=== PATIENT | female | born 1960 | race Caucasian/White ===

== ENCOUNTER 2018-02-28 08:41 | Inpatient (IN) | payer MEDICAID ==
[~2018-02-28 08:41] MED LIST: Acetaminophen 325 MG Tab PO SCH; Lidocaine 1%/Sod Bicarbonate in NS 8.4% 1 ML Syringe IDERM PRN; Pregabalin 25 MG Cap PO SCH; Sodium Chloride 0.9% 10 ML Syringe FLUSH PRN; oxyCODONE ER 10 MG TAB.ER PO SCH
[2018-02-28] MEDS ORDERED: Lidocaine 1% 0 ML ONE (08:58)
[2018-02-28] MEDS ORDERED: Propofol 200 MG/20 ML SDV ONE (08:58)
[2018-02-28] MEDS ORDERED: Midazolam 1 MG/ML 2 ML SDV ONE ×2 (08:59→11:22)
[2018-02-28] MEDS ORDERED: fentaNYL 100 MCG/2 ML SDV ONE (08:59)
[2018-02-28] MEDS ORDERED: ceFAZolin 1 GM Vial ONE ×2 (09:00→09:05)
[2018-02-28] MEDS ORDERED: Vancomycin 1 GM SDV ONE (09:05)
[2018-02-28] MEDS ORDERED: Morphine PF 10 MG/10 ML SDV ONE (09:05)
[2018-02-28] MEDS ORDERED: Iodine/Sodium Iodide 2% Tincture 30 ML Bottle ONE (09:05)
[2018-02-28] MEDS ORDERED: Lactated Ringers 1,000 ML ONE ×2 (09:06→11:30)
[2018-02-28] MEDS ORDERED: Bupivacaine 0.25% 30 ML SDV ONE (09:06)
[2018-02-28] MEDS: Lactated Ringers 1,000 ML IV SCH ×2 (09:10→13:35)
--- NOTE | 2018-02-28 09:16 | PCM.PREANE ---
Preanesthetic Assessment - Procedure Proposed Procedure: left total hip arthroplasty - Anesthesia/Transfusion/Family Hx Anesthesia History: Prior Anesthesia Without Reaction Family History of Anesthesia Reaction: No Transfusion History: No Prior Transfusion(s) - Review of Systems General: No Symptoms Pulmonary: No Symptoms Cardiovascular: No Symptoms Gastrointestinal: No Symptoms Neurological: No Symptoms Other: Reports: Thyroid Problems, Sinus Problem (nose broken a few times- one side seems more blocked) - Physical Assessment NPO Status Date: 02/27/18 NPO Status Time: 23:45 Pulse: 86 O2 Sat by Pulse Oximetry: 96 Respiratory Rate: 16 Blood Pressure: 136/95 Temperature: 99.2 F Height: 5 ft 3 in Weight: 68.855 kg ASA Class: 2 Mental Status: Alert & Oriented x3 Airway Class: Mallampati = 1 Dentition: Reports: Normal Dentition Thyro-Mental Finger Breadths: 3 Mouth Opening Finger Breadths: 3 ROM/Head Extension: Full Lungs: Clear to Auscultation, Normal Respiratory Effort Cardiovascular: Regular Rate, Regular Rhythm - Lab Values: Laboratory Last Values MRSA (PCR) Negative 02/11/18 14:26 - Imaging/EKG Impressions: EKG NSR at 64 - Allergies Allergies/Adverse Reactions: Allergies Allergy/AdvReac Type Severity Reaction Status Date / Time No Known Allergies Allergy Verified 02/25/18 16:48 - Blood Blood Available: No - Acknowledgements Anesthesia Type Planned: Spinal Pt an Appropriate Candidate for the Planned Anesthesia: Yes Alternatives and Risks of Anesthesia Discussed w Pt/Guardian: Yes Pt/Guardian Understands and Agrees with Anesthesia Plan: Yes PreAnesthesia Questionnaire HEENT History: Reports: None Cardiovascular History: Reports: None Respiratory History: Reports: None Gastrointestinal History: Reports: None Genitourinary History: Reports: None SAW FILER History: Reports: None Musculoskeletal History: Reports: Osteoarthritis Neurological History: Reports: None Psychiatric History: Reports: None Endocrine/Metabolic History: Reports: Hypothyroidism Hematologic History: Reports: None Immunologic History: Reports: None Oncologic (Cancer) History: Reports: None Dermatologic History: Reports: None - Past Surgical History Head Surgeries/Procedures: Reports: None HEENT Surgical History: Reports: None Cardiovascular Surgical History: Reports: None Respiratory Surgical History: Reports: Other (See Below) Other Respiratory Surgeries/Procedures: right lung surgery- had pneumonia- took scar tissue out GI Surgical History: Reports: Cholecystectomy Female Surgical History: Reports: Hysterectomy Male Surgical History: Reports: None Endocrine Surgical History: Reports: None Neurological Surgical History: Reports: None Musculoskeletal Surgical History: Reports: Hip Replacement, Other (See Below) ( left ankle) Oncologic Surgical History: Reports: None Dermatological Surgical History: Reports: None - SUBSTANCE USE Smoking Status *Q: Former Smoker (quit 6 weeks ago) Tobacco Use Within Last Twelve Months: Cigarettes Second Hand Smoke Exposure: Yes Days Per Week of Alcohol Use: 4 Number of Drinks Per Day: 2 (wine or beer) Total Drinks Per Week: 8 Recreational Drug Use History: No - HOME MEDS Home Medications: Home Meds Acetaminophen/HYDROcodone [[place] 325-5 MG] 1 tab PO Q6H PRN 02/25/18 [History] Estradiol 0.5 mg PO DAILY 02/25/18 [History] Levothyroxine [Synthroid] 100 mcg PO DAILY 02/25/18 [History] buPROPion [Wellbutrin SR] 150 mg PO BID 02/25/18 [History] - CURRENT (IN HOUSE) MEDS Current Meds: Current Medications Acetaminophen (Tylenol) 975 mg PO ONETIME [facility] Stop: 02/28/18 13:00 Bisacodyl (Dulcolax) 5 mg PO DAILY PRN PRN Reason: Constipation Morphine Sulfate 8 mg/Epinephrine HCl 0.3 mg/Cefuroxime Sodium 750 mg/Ketorolac Tromethamine 30 mg/Sodium Chloride 27.9 ml 0 mg .XX ONETIME ONE Stop: 02/28/18 11:06 Cyclobenzaprine HCl (Flexeril) 10 mg PO TID PRN PRN Reason: Spasms Docusate Sodium (Colace) 100 mg PO BID [facility] Famotidine (Pepcid) 20 mg PO Q12H [facility] Lactated Ringer's (Ringers, Lactated) 1,000 mls @ 125 mls/hr IV ASDIRECTED [facility] Stop: 02/28/18 23:00 Cefazolin Sodium/Dextrose 2 gm (/ Premix) 50 mls @ 100 mls/hr IV Q8H [facility] Stop: 02/28/18 23:29 Ketorolac Tromethamine (Toradol) 15 mg IVPUSH Q6H PRN PRN Reason: Pain Lidocaine/Sodium Bicarbonate (Buffered Lidocaine 1% In Ns 8.4%) 0.25 ml IDERM ONETIME PRN PRN Reason: Prior to IV Start Stop: 02/28/18 18:00 Magnesium Hydroxide (Milk Of Magnesia) 30 ml PO BID PRN PRN Reason: Constipation Morphine Sulfate (Morphine) 2 mg IVPUSH Q2H PRN PRN Reason: Breakthrough Pain Naloxone HCl (Narcan) 0.1 mg IVPUSH Q5M PRN PRN Reason: Oversedation Ondansetron HCl (Zofran) 4 mg IVPUSH Q6H PRN PRN Reason: Nausea/Vomiting Oxycodone HCl (Oxycontin) 10 mg PO ONETIME [facility] Stop: 02/28/18 13:00 Oxycodone/Acetaminophen (Percocet 325-5 Mg) 1 - 2 tab PO Q4H PRN PRN Reason: Pain Pregabalin (Lyrica) 50 mg PO ONETIME [facility] Stop: 02/28/18 13:00 Rivaroxaban (Xarelto) 10 mg PO DAILY [facility] Senna (Senna) 8.6 mg PO BID PRN PRN Reason: Constipation Sodium Chloride (Saline Flush) 10 ml FLUSH ASDIRECTED PRN PRN Reason: Keep Vein Open Stop: 02/28/18 18:00 Discontinued Medications Bupivacaine HCl (Marcaine 0.25%) Confirm Administered Dose 30 ml .ROUTE .STK- MED ONE Stop: 02/28/18 09:07 Cefazolin Sodium (Ancef) Confirm Administered Dose 2 gm .ROUTE .STK-MED ONE Stop: 02/28/18 09:01 Cefazolin Sodium (Ancef) Confirm Administered Dose 2 gm .ROUTE .STK-MED ONE Stop: 02/28/18 09:06 Fentanyl (Sublimaze) Confirm Administered Dose 100 mcg .ROUTE .STK-MED ONE Stop: 02/28/18 09:00 Lidocaine HCl (Xylocaine-Mpf 1%) Confirm Administered Dose 4 mls @ as directed .ROUTE .STK-MED ONE Stop: 02/28/18 08:59 Lactated Ringer's (Ringers, Lactated) Confirm Administered Dose 1,000 mls @ as directed .ROUTE .STK-MED ONE Stop: 02/28/18 09:07 Iodine (Iodine 2% Mild Tincture) Confirm Administered Dose 30 ml .ROUTE .STK- MED ONE Stop: 02/28/18 09:06 Midazolam HCl (Versed 1 Mg/Ml) Confirm Administered Dose 2 mg .ROUTE .STK-MED ONE Stop: 02/28/18 09:00 Morphine Sulfate (Duramorph Pf) Confirm Administered Dose 10 mg .ROUTE .STK-MED ONE Stop: 02/28/18 09:06 Propofol (Diprivan 20 Ml) Confirm Administered Dose 600 mg .ROUTE .STK-MED ONE Stop: 02/28/18 08:59 Tranexamic Acid (Cyklokapron) Confirm Administered Dose 1,000 mg .ROUTE .STK- MED ONE Stop: 02/28/18 09:06 Vancomycin HCl (Vancomycin) Confirm Administered Dose 1 gm .ROUTE .STK-MED ONE Stop: 02/28/18 09:06
[2018-02-28] MEDS ORDERED: Morphine 8 MG, EPINEPHrine 0.3 MG, Cefuroxime 750 MG, Ketorolac 30 MG, Sodium Chloride ... ONE ×5 (11:05)
[2018-02-28] MEDS ORDERED: Phenylephrine/Normal Saline 100 MCG/ML 10 ML Syringe ONE (11:16)
[2018-02-28] MEDS ORDERED: ePHEDrine/Normal Saline 25 MG/5 ML Syringe ONE (11:16)
[2018-02-28] MEDS ORDERED: Ketamine 500 mg/10 ML MDV ONE (11:22)
[2018-02-28] MEDS ORDERED: fentaNYL 100 MCG/2 ML SDV IVPUSH PRN (11:28)
[2018-02-28] MEDS ORDERED: Ondansetron 4 MG/2 ML SDV IVPUSH PRN ×2 (11:28→13:00)
[2018-02-28] MEDS ORDERED: diphenhydrAMINE 50 MG/ML SDV IVPUSH PRN (11:28)
[2018-02-28] MEDS ORDERED: Ondansetron 4 MG/2 ML SDV ONE (12:41)
--- NOTE | 2018-02-28 12:52 | PCM.POSTAN ---
POST ANESTHESIA ASSESSMENT - MENTAL STATUS Mental Status: Alert, Oriented - VITAL SIGNS Pulse Rate: 77 SaO2: 98 Resp Rate: 12 Blood Pressure: 106/75 Temperature: 98.1 F - RESPIRATORY Respiratory Status: Respiratory Rate WNL, Airway Patent, O2 Saturation Stable, Supplemental Oxygen - CARDIOVASCULAR CV Status: Pulse Rate WNL, Blood Pressure Stable - GASTROINTESTINAL GI Status: No Symptoms - PAIN Pain Score: 0 - POST OP HYDRATION Hydration Status: Adequate & Stable
[2018-02-28] MEDS ORDERED: Sennosides 8.6 MG Tab PO PRN (13:00)
[2018-02-28] MEDS ORDERED: Magnesium Hydroxide 400 MG/5 ML Susp 30 ML Cup PO PRN (13:00)
[2018-02-28] MEDS ORDERED: Ketorolac 15 MG/ML SDV IVPUSH PRN (13:00)
[2018-02-28] MEDS ORDERED: Naloxone 0.4 MG/ML SDV IVPUSH PRN (13:00)
[2018-02-28] MEDS ORDERED: Cyclobenzaprine 10 MG Tab PO PRN (13:00)
[2018-02-28] MEDS ORDERED: Morphine 2 MG/ML Syringe IVPUSH PRN (13:00)
[2018-02-28] MEDS ORDERED: Bisacodyl 5 MG Tab PO PRN (13:00)
--- NOTE | 2018-02-28 14:34 | CR ---
Pelvis and left hip: AP view of the pelvis is obtained as well as frog leg lateral view of the left hip. Comparison: No previous pelvis or hip exam. Bilateral hip prosthesis are noted. Left hip prosthesis has been recently placed. Components are aligned. Underlying bony structures are intact. Mild amount of soft tissue air is noted around the left hip. No fracture or other abnormality is seen. Impression: 1. Satisfactory postoperative radiographic appearance recently placed left hip prosthesis. Diagnostic code #2
--- NOTE | 2018-02-28 15:23 | PCM.CONS ---
H&P History of Present Illness - General Date of Service: 02/28/18 Admit Problem/Dx: Admission Diagnosis/Problem Admission Diagnosis/Problem Osteoarthritis of hip Source of Information: Patient, Provider History Limitations: Reports: No Limitations - History of Present Illness Initial Comments - Free Text/Narative: Asmita is a 57 yo female patient of Dr. Funk who is post-operative day 0 of left MONA. Hospital medicine was consulted for post-operative medical care. At this time she is resting comfortably in bed. She reports pain is currently controlled, will give pain medication PRN. She denies any chest pain, shortness of breath, palpitations, nausea, or vomiting. She carries a history of: OA, postmenopausal, hypothyroid. She is a former 1/2 ppd smoker, states she quit 6 weeks ago. She is a full code. Her primary care provider is Dr. Cuenca in [place]. - Related Data Allergies/Adverse Reactions: Allergies Allergy/AdvReac Type Severity Reaction Status Date / Time No Known Allergies Allergy Verified 02/25/18 16:48 Home Medications: Home Meds Levothyroxine [Synthroid] 100 mcg PO DAILY 02/25/18 [History] buPROPion [Wellbutrin SR] 150 mg PO BID 02/25/18 [History] Acetaminophen/oxyCODONE [Percocet 325-5 MG] 1 - 2 tab PO Q6H PRN #60 tablet 06/17 [Rx] Bisacodyl [Dulcolax] 5 mg PO DAILY PRN tablet 02/28/18 [Rx] Docusate Sodium [Colace] 100 mg PO BID cap 02/28/18 [Rx] Famotidine [Pepcid] 20 mg PO Q12H tablet 02/28/18 [Rx] Magnesium Hydroxide [Milk of Magnesia] 30 ml PO BID PRN cup 02/28/18 [Rx] Nicotine [Habitrol] 14 mg TRDERM DAILY patch 02/28/18 [Rx] Remove Patch 1 ea TRDERM Q24H each 02/28/18 [Rx] Rivaroxaban [Xarelto] 10 mg PO DAILY #40 tablet 02/28/18 [Rx] Sennosides [Senna] 8.6 mg PO BID PRN tablet 02/28/18 [Rx] Past Medical History HEENT History: Reports: None Cardiovascular History: Reports: None Respiratory History: Reports: None Gastrointestinal History: Reports: None Genitourinary History: Reports: None CORPORATE RELATIONS DIRECTOR History: Reports: None Musculoskeletal History: Reports: Osteoarthritis Neurological History: Reports: None Psychiatric History: Reports: None Endocrine/Metabolic History: Reports: Hypothyroidism Hematologic History: Reports: None Immunologic History: Reports: None Oncologic (Cancer) History: Reports: None Dermatologic History: Reports: None - Infectious Disease History Infectious Disease History: Reports: None - Past Surgical History Head Surgeries/Procedures: Reports: None HEENT Surgical History: Reports: None Cardiovascular Surgical History: Reports: None Respiratory Surgical History: Reports: Other (See Below) Other Respiratory Surgeries/Procedures: right lung surgery- had pneumonia- took scar tissue out GI Surgical History: Reports: Cholecystectomy Female Surgical History: Reports: Hysterectomy Endocrine Surgical History: Reports: None Neurological Surgical History: Reports: None Musculoskeletal Surgical History: Reports: Hip Replacement Oncologic Surgical History: Reports: None Dermatological Surgical History: Reports: None Social & Family History - Family History Family Medical History: Noncontributory - Tobacco Use Smoking Status *Q: Former Smoker Years of Tobacco use: 4 Packs/Tins Daily: 0.5 Used Tobacco, but Quit: Yes Month/Year Tobacco Last Used: December 2017 Second Hand Smoke Exposure: No - Caffeine Use Caffeine Use: Reports: Coffee, Tea - Alcohol Use Days Per Week of Alcohol Use: 5 Number of Drinks Per Day: 2 Total Drinks Per Week: 10 - Recreational Drug Use Recreational Drug Use: No H&P Review of Systems - Review of Systems: Review Of Systems: See Below General: Reports: No Symptoms. Denies: Fever, Chills HEENT: Reports: No Symptoms Pulmonary: Reports: No Symptoms. Denies: Shortness of Breath, Pleuritic Chest Pain, Cough Cardiovascular: Reports: No Symptoms. Denies: Chest Pain Gastrointestinal: Reports: No Symptoms. Denies: Diarrhea, Nausea, Vomiting Genitourinary: Reports: No Symptoms. Denies: Dysuria, Frequency, Burning, Pain , Urgency Musculoskeletal: Reports: No Symptoms Skin: Reports: No Symptoms Psychiatric: Reports: No Symptoms Neurological: Reports: Numbness (lower extremities s/p L MONA), Tingling (lower extremities s/p L MONA) Hematologic/Lymphatic: Reports: No Symptoms Immunologic: Reports: No Symptoms Exam - Exam Exam: See Below - Vital Signs Vital Signs: Last Vital Signs Temp 98.2 F 02/28/18 13:45 Pulse 72 02/28/18 14:31 Resp 16 02/28/18 15:00 BP 122/86 02/28/18 14:31 Pulse Ox 98 02/28/18 15:00 Weight: 151 lb - Exam Quality Assessment: Urinary Catheter, DVT Prophylaxis. No: Supplemental Oxygen General: Alert, Oriented, Cooperative, Mild Distress HEENT: PERRLA, Hearing Intact, Mucosa Moist & [place], Nares Patent, Normal Nasal Septum, Posterior Pharynx Clear, Conjunctiva Clear, EOMI, EACs Clear, TMs Clear Neck: Supple, Trachea Midline, 2 Lungs: Clear to Auscultation, Normal Respiratory Effort Cardiovascular: Regular Rate, Regular Rhythm GI/Abdominal Exam: Normal Bowel Sounds, Soft, Non-Tender, No Organomegaly, No Distention, No Abnormal Bruit, No Mass, Pelvis Stable (Female) Exam: Deferred Rectal (Female) Exam: Deferred Back Exam: Normal Inspection, Full Range of Motion, NT Extremities: Normal Inspection, Non-Tender, No Pedal Edema, Normal Capillary Refill, Limited Range of Motion (s/p L MONA) Peripheral Pulses: 2+: Posterior Tibial (L), Posterior Tibial (R), Dorsalis Pedis (L), Dorsalis Pedis (R) Skin: Warm, Dry, Intact, Other (dressing dry and intact) Neurological: Cranial Nerves Intact (grossly), Abnormal Gait (s/p L MONA) Neuro Extensive - Mental Status: Alert, Oriented x3, Normal Mood/Affect, Normal Cognition Psychiatric: Alert, Normal Affect, Normal Mood - Patient Data Lab Results Last 24 hrs: Laboratory Results - last 24 hr 02/28/18 Range/Units 09:05 Blood Type O POSITIVE Gel Antibody Screen Negative Consult PN Assessment/Plan POD#: 0 Procedures: Procedures DXA BONE DENSITY AXIAL (12/31/17) (1) S/P total hip arthroplasty SNOMED Code(s): 574492285535, 786874394445 Code(s): Z96.649 - PRESENCE OF UNSPECIFIED ARTIFICIAL HIP JOINT Priority: High Current Visit: Yes Qualifiers: Laterality: left Qualified Code(s): Z96.642 - Presence of left artificial hip joint (2) Osteoarthritis SNOMED Code(s): 020488427 Code(s): M19.90 - UNSPECIFIED OSTEOARTHRITIS, UNSPECIFIED SITE Priority: High Current Visit: Yes Qualifiers: Osteoarthritis location: unspecified site Osteoarthritis type: unspecified Qualified Code(s): M19.90 - Unspecified osteoarthritis, unspecified site Problem List Initiated/Reviewed/Updated: Yes Plan: I/P: Acute: S/P left total hip arthroplasty - post-operative day 0 -DVT prophylaxis and pain management per primary care team -PT/OT -IS/RT -Monitor oxygen saturation -Titrate oxygen as needed -Vital signs stable -Monitor labs -Pre-operative Hgb was 13.2 -GFR >90 Osteoarthritis of left hip -Pain management per primary care team Chronic: OA Postmenopausal Hypothyroid Tobacco Dependence * States she quit 6 weeks ago; was smoking 1/2 ppd * Smoking cessation counseling given * Nicotine patch PRN Plan: CM for discharge planning GI prophylaxis Home medications as indicated Other orders as listed above Routine AM labs She is a full code. Her PCP is Dr. Cuenca in [place]. Thank you for allowing us to participate in the care of this patient!!
[2018-02-28] MEDS: Acetaminophen/oxyCODONE 325-5 MG Tab PO PRN ×2 (17:59→22:52)
[2018-02-28] MEDS: ceFAZolin 2 GM in Premix Bag 1 BAG IV SCH (18:00)
[2018-02-28] MEDS: Nicotine 14 MG/24 Hr Patch TRDERM SCH (18:42)
[2018-02-28] MEDS: Docusate Sodium 100 MG Cap PO SCH (20:41)
[2018-02-28] MEDS: Famotidine 20 MG Tab PO SCH (20:41)
[2018-02-28] MEDS: BUPROPION 150 MG PO SCH (20:42)
[2018-02-28] MEDS ORDERED: diphenhydrAMINE 50 MG/ML SDV IVPUSH ONE (21:44)
[2018-03-01] MEDS: Acetaminophen/oxyCODONE 325-5 MG Tab PO PRN ×3 (01:41→10:14)
[2018-03-01] MEDS: ceFAZolin 2 GM in Premix Bag 1 BAG IV SCH ×2 (01:43→10:00)
--- NOTE | 2018-03-01 06:38 | PCM.CONSN ---
- General Info Date of Service: 03/01/18 Admission Dx/Problem (Free Text): Admission Diagnosis/Problem Admission Diagnosis/Problem Osteoarthritis of hip Subjective Update: In to see Asmita. Overall she is doing well. Pain is controlled, but currently 7.5/10, will give pain medication. Denies any N/V/D, CP, SOB, Abdominal pain, numbness/tingling. No concerns from nursing. Functional Status: Reports: Pain Controlled, Tolerating Diet, Ambulating, Urinating, Incentive Spirometry - Review of Systems General: Reports: No Symptoms. Denies: Fever, Chills HEENT: Reports: No Symptoms Pulmonary: Reports: No Symptoms. Denies: Shortness of Breath, Cough Cardiovascular: Reports: No Symptoms. Denies: Chest Pain Gastrointestinal: Reports: No Symptoms. Denies: Abdominal Pain, Diarrhea, Nausea, Vomiting Genitourinary: Reports: No Symptoms. Denies: Dysuria, Frequency, Burning, Pain , Urgency Musculoskeletal: Reports: Joint Pain (7.510 s/p L MONA) Skin: Reports: No Symptoms Neurological: Reports: No Symptoms Psychiatric: Reports: No Symptoms - Patient Data Vitals - Most Recent: Last Vital Signs Temp 98.2 F 03/01/18 04:37 Pulse 72 03/01/18 04:37 Resp 18 03/01/18 04:37 BP 120/73 03/01/18 04:37 Pulse Ox 100 03/01/18 04:37 Weight - Most Recent: 161 lb 1.6 oz I&O - Last 24 Hours: Intake & Output 02/28/18 02/28/18 03/01/18 14:59 22:59 06:59 Intake Total 554 122 7391 Output Total 550 575 Balance -366 547 3584 Lab Results Last 24 Hours: Laboratory Results - last 24 hr 02/28/18 Range/Units 09:05 Blood Type O POSITIVE Gel Antibody Screen Negative Med Orders - Current: Current Medications Bisacodyl (Dulcolax) 5 mg PO DAILY PRN PRN Reason: Constipation Cyclobenzaprine HCl (Flexeril) 10 mg PO TID PRN PRN Reason: Spasms Docusate Sodium (Colace) 100 mg PO BID [facility] Last Admin: 02/28/18 20:41 Dose: 100 mg Famotidine (Pepcid) 20 mg PO Q12H [facility] Last Admin: 02/28/18 20:41 Dose: 20 mg Cefazolin Sodium/Dextrose 2 gm (/ Premix) 50 mls @ 100 mls/hr IV Q8H [facility] Stop: 03/01/18 10:59 Last Admin: 03/01/18 01:43 Dose: 100 mls/hr Ketorolac Tromethamine (Toradol) 15 mg IVPUSH Q6H PRN PRN Reason: Pain Levothyroxine Sodium (Synthroid) 100 mcg PO DAILY@0700 [facility] Last Admin: 03/01/18 06:01 Dose: 100 mcg Magnesium Hydroxide (Milk Of Magnesia) 30 ml PO BID PRN PRN Reason: Constipation Miscellaneous Information (Remove Patch) 1 ea TRDERM Q24H [facility] Morphine Sulfate (Morphine) 2 mg IVPUSH Q2H PRN PRN Reason: Breakthrough Pain Naloxone HCl (Narcan) 0.1 mg IVPUSH Q5M PRN PRN Reason: Oversedation Nicotine (Habitrol) 14 mg TRDERM DAILY [facility] Last Admin: 02/28/18 18:42 Dose: Not Given Ondansetron HCl (Zofran) 4 mg IVPUSH Q6H PRN PRN Reason: Nausea/Vomiting Oxycodone/Acetaminophen (Percocet 325-5 Mg) 1 - 2 tab PO Q4H PRN PRN Reason: Pain Last Admin: 03/01/18 05:58 Dose: 2 tab Bupropion 150 Mg Tab (.Sr Ptom) 150 each PO BID [facility] Last Admin: 02/28/18 20:42 Dose: Not Given Rivaroxaban (Xarelto) 10 mg PO DAILY [facility] Senna (Senna) 8.6 mg PO BID PRN PRN Reason: Constipation Discontinued Medications Acetaminophen (Tylenol) 975 mg PO ONETIME [facility] Stop: 02/28/18 13:00 Last Admin: 02/28/18 09:35 Dose: 975 mg Bupivacaine HCl (Marcaine 0.25%) Confirm Administered Dose 30 ml .ROUTE .STK- MED ONE Stop: 02/28/18 09:07 Last Admin: 02/28/18 12:25 Dose: 20 ml Cefazolin Sodium (Ancef) Confirm Administered Dose 2 gm .ROUTE .STK-MED ONE Stop: 02/28/18 09:01 Cefazolin Sodium (Ancef) Confirm Administered Dose 2 gm .ROUTE .STK-MED ONE Stop: 02/28/18 09:06 Last Admin: 02/28/18 12:20 Dose: 2 gm Morphine Sulfate 8 mg/Epinephrine HCl 0.3 mg/Cefuroxime Sodium 750 mg/Ketorolac Tromethamine 30 mg/Sodium Chloride 27.9 ml 0 mg .XX ONETIME ONE Stop: 02/28/18 11:06 Last Admin: 02/28/18 12:24 Dose: 788.3 mg Diphenhydramine HCl (Benadryl) 25 mg IVPUSH Q6H PRN PRN Reason: pruritis Stop: 02/28/18 16:00 Diphenhydramine HCl (Benadryl) 25 mg IVPUSH ONETIME ONE Stop: 02/28/18 21:45 Last Admin: 02/28/18 22:52 Dose: 25 mg Ephedrine Sulfate (Ephedrine In Ns) Confirm Administered Dose 25 mg .ROUTE .STK- MED ONE Stop: 02/28/18 11:17 Fentanyl (Sublimaze) Confirm Administered Dose 100 mcg .ROUTE .STK-MED ONE Stop: 02/28/18 09:00 Fentanyl (Sublimaze) 50 mcg IVPUSH Q5M PRN PRN Reason: Pain Stop: 02/28/18 15:00 Lactated Ringer's (Ringers, Lactated) 1,000 mls @ 125 mls/hr IV ASDIRECTED [facility] Stop: 02/28/18 23:00 Last Admin: 02/28/18 13:35 Dose: 125 mls/hr Lidocaine HCl (Xylocaine-Mpf 1%) Confirm Administered Dose 4 mls @ as directed .ROUTE .STK-MED ONE Stop: 02/28/18 08:59 Lactated Ringer's (Ringers, Lactated) Confirm Administered Dose 1,000 mls @ as directed .ROUTE .STK-MED ONE Stop: 02/28/18 09:07 Lactated Ringer's (Ringers, Lactated) Confirm Administered Dose 1,000 mls @ as directed .ROUTE .STK-MED ONE Stop: 02/28/18 11:31 Iodine (Iodine 2% Mild Tincture) Confirm Administered Dose 30 ml .ROUTE .STK- MED ONE Stop: 02/28/18 09:06 Last Admin: 02/28/18 12:19 Dose: 18 ml Ketamine HCl (Ketalar) Confirm Administered Dose 500 mg .ROUTE .STK-MED ONE Stop: 02/28/18 11:23 Lidocaine/Sodium Bicarbonate (Buffered Lidocaine 1% In Ns 8.4%) 0.25 ml IDERM ONETIME PRN PRN Reason: Prior to IV Start Stop: 02/28/18 18:00 Last Admin: 02/28/18 09:10 Dose: 0.25 ml Midazolam HCl (Versed 1 Mg/Ml) Confirm Administered Dose 2 mg .ROUTE .STK-MED ONE Stop: 02/28/18 09:00 Midazolam HCl (Versed 1 Mg/Ml) Confirm Administered Dose 2 mg .ROUTE .STK-MED ONE Stop: 02/28/18 11:23 Morphine Sulfate (Duramorph Pf) Confirm Administered Dose 10 mg .ROUTE .STK-MED ONE Stop: 02/28/18 09:06 Ondansetron HCl (Zofran) 4 mg IVPUSH ONETIME PRN PRN Reason: Nausea/Vomiting Stop: 02/28/18 16:00 Ondansetron HCl (Zofran) Confirm Administered Dose 4 mg .ROUTE .STK-MED ONE Stop: 02/28/18 12:42 Oxycodone HCl (Oxycontin) 10 mg PO ONETIME [facility] Stop: 02/28/18 13:00 Last Admin: 02/28/18 09:35 Dose: 10 mg Phenylephrine HCl (Phenylephrine In Ns 100 Mcg/Ml) Confirm Administered Dose 1 mg .ROUTE .STK-MED ONE Stop: 02/28/18 11:17 Pregabalin (Lyrica) 50 mg PO ONETIME [facility] Stop: 02/28/18 13:00 Last Admin: 02/28/18 09:35 Dose: 50 mg Propofol (Diprivan 20 Ml) Confirm Administered Dose 600 mg .ROUTE .STK-MED ONE Stop: 02/28/18 08:59 Sodium Chloride (Saline Flush) 10 ml FLUSH ASDIRECTED PRN PRN Reason: Keep Vein Open Stop: 02/28/18 18:00 Tranexamic Acid (Cyklokapron) Confirm Administered Dose 1,000 mg .ROUTE .STK- MED ONE Stop: 02/28/18 09:06 Last Admin: 02/28/18 12:26 Dose: 1,000 mg Vancomycin HCl (Vancomycin) Confirm Administered Dose 1 gm .ROUTE .STK-MED ONE Stop: 02/28/18 09:06 Last Admin: 02/28/18 12:26 Dose: 1 gm - Exam Quality Assessment: Urine Catheter, DVT Prophylaxis General: Alert, Oriented, Cooperative, No Acute Distress HEENT: Pupils Equal, Pupils Reactive, EOMI, Mucous Membr. Moist/[place] Neck: Supple Lungs: Clear to Auscultation, Normal Respiratory Effort Cardiovascular: Regular Rate, Regular Rhythm GI/Abdominal Exam: Normal Bowel Sounds, Soft, Non-Tender, No Organomegaly, No Distention, No Abnormal Bruit, No Mass, Pelvis Stable (Female) Exam: Deferred Back Exam: Normal Inspection, Full Range of Motion Extremities: Normal Inspection, Normal Range of Motion, Non-Tender, No Pedal Edema, Normal Capillary Refill Peripheral Pulses: 2+: Posterior Tibial (L), Posterior Tibial (R), Dorsalis Pedis (L), Dorsalis Pedis (R) Skin: Warm, Dry, Intact Wound/Incisions: Healing Well Neurological: No New Focal Deficit Psy/Mental Status: Alert, Normal Affect, Normal Mood Consult PN Assessment/Plan POD#: 1 Procedures: Procedures DXA BONE DENSITY AXIAL (12/31/17) (1) S/P total hip arthroplasty SNOMED Code(s): 843648644103, 979587937863 Code(s): Z96.649 - PRESENCE OF UNSPECIFIED ARTIFICIAL HIP JOINT Priority: High Current Visit: Yes Qualifiers: Laterality: left Qualified Code(s): Z96.642 - Presence of left artificial hip joint (2) Osteoarthritis SNOMED Code(s): 268628360 Code(s): M19.90 - UNSPECIFIED OSTEOARTHRITIS, UNSPECIFIED SITE Priority: High Current Visit: Yes Qualifiers: Osteoarthritis location: unspecified site Osteoarthritis type: unspecified Qualified Code(s): M19.90 - Unspecified osteoarthritis, unspecified site Problem List Initiated/Reviewed/Updated: Yes My Orders Last 24 Hours: My Active Orders 02/28/18 15:30 Nicotine [Habitrol] 14 mg TRDERM DAILY Plan: I/P: Acute: S/P left total hip arthroplasty - post-operative day 0 -DVT prophylaxis and pain management per primary care team -PT/OT -IS/RT -Monitor oxygen saturation -Titrate oxygen as needed -Vital signs stable -Monitor labs -Pre-operative Hgb was 13.2--> 11.2 -GFR >90 Osteoarthritis of left hip -Pain management per primary care team Chronic: OA Postmenopausal Hypothyroid Tobacco Dependence * States she quit 6 weeks ago; was smoking 1/2 ppd * Smoking cessation counseling given * Nicotine patch PRN Plan: CM for discharge planning GI prophylaxis Home medications as indicated Other orders as listed above Routine AM labs She is a full code. Her PCP is Dr. Cuenca in [place]. From a hospitalist standpoint Ata is cleared for discharge pending primary care team and PT/OT approval. Thank you for allowing us to participate in the care of this patient!!
[2018-03-01] MEDS ORDERED: Levothyroxine 100 MCG Tab PO SCH (07:00)
--- NOTE | 2018-03-01 07:50 | PCM.SURGPN ---
- General Info Date of Service: 03/01/18 POD#: 1 Functional Status: Reports: Pain Controlled, Tolerating Diet, Ambulating, Urinating, Incentive Spirometry - Review of Systems Musculoskeletal: Reports: Other (The pt states she is doing well. She has noted "soreness" s/p mobility activities this morning.) - Patient Data Vitals - Most Recent: Last Vital Signs Temp 98.2 F 03/01/18 04:37 Pulse 72 03/01/18 04:37 Resp 18 03/01/18 04:37 BP 120/73 03/01/18 04:37 Pulse Ox 100 03/01/18 04:37 Weight - Most Recent: 161 lb 1.6 oz I&O - Last 24 Hours: Intake & Output 02/28/18 03/01/18 03/01/18 22:59 06:59 14:59 Intake Total 860 1545 Output Total 575 Balance 285 1545 Lab Results Last 24 Hrs: Laboratory Results - last 24 hr 02/28/18 03/01/18 03/01/18 Range/Units 09:05 06:05 06:05 WBC 5.41 (3.98-10.04) K/mm3 RBC 3.56 L (3.98-5.22) M/mm3 Hgb 11.2 (11.2-15.7) gm/L Hct 34.7 (34.1-44.9) % MCV 97.5 H (79.4-94.8) fl MCH 31.5 (25.6-32.2) pg MCHC 32.3 (32.2-35.5) g/dl RDW Std Deviation 44.1 (36.4-46.3) fL Plt Count 240 (182-369) K/mm3 MPV 9.4 (9.4-12.3) fl Sodium 138 (136-145) mEq/L Potassium 4.0 (3.5-5.1) mEq/L Chloride 103 (98-107) mEq/L Carbon Dioxide 31 (21-32) mEq/L Anion Gap 8.0 (5-15) BUN 9 (7-18) mg/dL Creatinine 0.8 (0.55-1.02) mg/dL Est Cr Clr Drug Dosing 62.63 mL/min Estimated GFR (MDRD) > 60 (>60) mL/min BUN/Creatinine Ratio 11.3 L (14-18) Glucose 92 (74-106) mg/dL Calcium 8.4 L (8.5-10.1) mg/dL Total Bilirubin 0.6 (0.2-1.0) mg/dL AST 326 H (15-37) U/L ALT 225 H (14-59) U/L Alkaline Phosphatase 242 H (46-116) U/L Total Protein 7.1 (6.4-8.2) g/dl Albumin 3.3 L (3.4-5.0) g/dl Globulin 3.8 gm/dL Albumin/Globulin Ratio 0.9 L (1-2) Blood Type O POSITIVE Gel Antibody Screen Negative Med Orders - Current: Current Medications Bisacodyl (Dulcolax) 5 mg PO DAILY PRN PRN Reason: Constipation Cyclobenzaprine HCl (Flexeril) 10 mg PO TID PRN PRN Reason: Spasms Docusate Sodium (Colace) 100 mg PO BID [facility] Last Admin: 02/28/18 20:41 Dose: 100 mg Famotidine (Pepcid) 20 mg PO Q12H [facility] Last Admin: 02/28/18 20:41 Dose: 20 mg Cefazolin Sodium/Dextrose 2 gm (/ Premix) 50 mls @ 100 mls/hr IV Q8H [facility] Stop: 03/01/18 10:59 Last Admin: 03/01/18 01:43 Dose: 100 mls/hr Ketorolac Tromethamine (Toradol) 15 mg IVPUSH Q6H PRN PRN Reason: Pain Levothyroxine Sodium (Synthroid) 100 mcg PO DAILY@0700 [facility] Last Admin: 03/01/18 06:01 Dose: 100 mcg Magnesium Hydroxide (Milk Of Magnesia) 30 ml PO BID PRN PRN Reason: Constipation Miscellaneous Information (Remove Patch) 1 ea TRDERM Q24H [facility] Morphine Sulfate (Morphine) 2 mg IVPUSH Q2H PRN PRN Reason: Breakthrough Pain Naloxone HCl (Narcan) 0.1 mg IVPUSH Q5M PRN PRN Reason: Oversedation Nicotine (Habitrol) 14 mg TRDERM DAILY [facility] Last Admin: 02/28/18 18:42 Dose: Not Given Ondansetron HCl (Zofran) 4 mg IVPUSH Q6H PRN PRN Reason: Nausea/Vomiting Oxycodone/Acetaminophen (Percocet 325-5 Mg) 1 - 2 tab PO Q4H PRN PRN Reason: Pain Last Admin: 03/01/18 05:58 Dose: 2 tab Bupropion 150 Mg Tab (.Sr Ptom) 150 each PO BID [facility] Last Admin: 02/28/18 20:42 Dose: Not Given Rivaroxaban (Xarelto) 10 mg PO DAILY [facility] Senna (Senna) 8.6 mg PO BID PRN PRN Reason: Constipation Discontinued Medications Acetaminophen (Tylenol) 975 mg PO ONETIME [facility] Stop: 02/28/18 13:00 Last Admin: 02/28/18 09:35 Dose: 975 mg Bupivacaine HCl (Marcaine 0.25%) Confirm Administered Dose 30 ml .ROUTE .STK- MED ONE Stop: 02/28/18 09:07 Last Admin: 02/28/18 12:25 Dose: 20 ml Cefazolin Sodium (Ancef) Confirm Administered Dose 2 gm .ROUTE .STK-MED ONE Stop: 02/28/18 09:01 Cefazolin Sodium (Ancef) Confirm Administered Dose 2 gm .ROUTE .STK-MED ONE Stop: 02/28/18 09:06 Last Admin: 02/28/18 12:20 Dose: 2 gm Morphine Sulfate 8 mg/Epinephrine HCl 0.3 mg/Cefuroxime Sodium 750 mg/Ketorolac Tromethamine 30 mg/Sodium Chloride 27.9 ml 0 mg .XX ONETIME ONE Stop: 02/28/18 11:06 Last Admin: 02/28/18 12:24 Dose: 788.3 mg Diphenhydramine HCl (Benadryl) 25 mg IVPUSH Q6H PRN PRN Reason: pruritis Stop: 02/28/18 16:00 Diphenhydramine HCl (Benadryl) 25 mg IVPUSH ONETIME ONE Stop: 02/28/18 21:45 Last Admin: 02/28/18 22:52 Dose: 25 mg Ephedrine Sulfate (Ephedrine In Ns) Confirm Administered Dose 25 mg .ROUTE .STK- MED ONE Stop: 02/28/18 11:17 Fentanyl (Sublimaze) Confirm Administered Dose 100 mcg .ROUTE .STK-MED ONE Stop: 02/28/18 09:00 Fentanyl (Sublimaze) 50 mcg IVPUSH Q5M PRN PRN Reason: Pain Stop: 02/28/18 15:00 Lactated Ringer's (Ringers, Lactated) 1,000 mls @ 125 mls/hr IV ASDIRECTED [facility] Stop: 02/28/18 23:00 Last Admin: 02/28/18 13:35 Dose: 125 mls/hr Lidocaine HCl (Xylocaine-Mpf 1%) Confirm Administered Dose 4 mls @ as directed .ROUTE .STK-MED ONE Stop: 02/28/18 08:59 Lactated Ringer's (Ringers, Lactated) Confirm Administered Dose 1,000 mls @ as directed .ROUTE .STK-MED ONE Stop: 02/28/18 09:07 Lactated Ringer's (Ringers, Lactated) Confirm Administered Dose 1,000 mls @ as directed .ROUTE .STK-MED ONE Stop: 02/28/18 11:31 Iodine (Iodine 2% Mild Tincture) Confirm Administered Dose 30 ml .ROUTE .STK- MED ONE Stop: 02/28/18 09:06 Last Admin: 02/28/18 12:19 Dose: 18 ml Ketamine HCl (Ketalar) Confirm Administered Dose 500 mg .ROUTE .STK-MED ONE Stop: 02/28/18 11:23 Lidocaine/Sodium Bicarbonate (Buffered Lidocaine 1% In Ns 8.4%) 0.25 ml IDERM ONETIME PRN PRN Reason: Prior to IV Start Stop: 02/28/18 18:00 Last Admin: 02/28/18 09:10 Dose: 0.25 ml Midazolam HCl (Versed 1 Mg/Ml) Confirm Administered Dose 2 mg .ROUTE .STK-MED ONE Stop: 02/28/18 09:00 Midazolam HCl (Versed 1 Mg/Ml) Confirm Administered Dose 2 mg .ROUTE .STK-MED ONE Stop: 02/28/18 11:23 Morphine Sulfate (Duramorph Pf) Confirm Administered Dose 10 mg .ROUTE .STK-MED ONE Stop: 02/28/18 09:06 Ondansetron HCl (Zofran) 4 mg IVPUSH ONETIME PRN PRN Reason: Nausea/Vomiting Stop: 02/28/18 16:00 Ondansetron HCl (Zofran) Confirm Administered Dose 4 mg .ROUTE .STK-MED ONE Stop: 02/28/18 12:42 Oxycodone HCl (Oxycontin) 10 mg PO ONETIME [facility] Stop: 02/28/18 13:00 Last Admin: 02/28/18 09:35 Dose: 10 mg Phenylephrine HCl (Phenylephrine In Ns 100 Mcg/Ml) Confirm Administered Dose 1 mg .ROUTE .STK-MED ONE Stop: 02/28/18 11:17 Pregabalin (Lyrica) 50 mg PO ONETIME [facility] Stop: 02/28/18 13:00 Last Admin: 02/28/18 09:35 Dose: 50 mg Propofol (Diprivan 20 Ml) Confirm Administered Dose 600 mg .ROUTE .STK-MED ONE Stop: 02/28/18 08:59 Sodium Chloride (Saline Flush) 10 ml FLUSH ASDIRECTED PRN PRN Reason: Keep Vein Open Stop: 02/28/18 18:00 Tranexamic Acid (Cyklokapron) Confirm Administered Dose 1,000 mg .ROUTE .STK- MED ONE Stop: 02/28/18 09:06 Last Admin: 02/28/18 12:26 Dose: 1,000 mg Vancomycin HCl (Vancomycin) Confirm Administered Dose 1 gm .ROUTE .STK-MED ONE Stop: 02/28/18 09:06 Last Admin: 02/28/18 12:26 Dose: 1 gm - Exam Wound/Incisions: Dressing Dry and Intact General: Alert, Cooperative, No Acute Distress Lungs: Normal Respiratory Effort Extremities: Other (NVS intact for BLE. Leslie's negative. Left thigh soft.) - Problem List Review Problem List Initiated/Reviewed/Updated: Yes - My Orders Last 24 Hours: Active Orders 24 hr Category Date Time Status Patient Status [ADT] Routine ADT 02/28/18 06:57 Active Communication Order [RC] Care 02/28/18 11:27 Active Notify Provider [RC] Care 02/28/18 11:28 Active Oxygen Therapy [RC] Care 02/28/18 11:28 Active Pulse Oximetry [RC] Q1HR Care 02/28/18 11:28 Active RT Incentive Spirometry [RC] Q1HWA Care 02/28/18 06:56 Active Ready for Discharge [RC] PER UNIT ROUTINE Care 03/01/18 07:48 Ordered Vital Signs [RC] Q4HR Care 02/28/18 06:57 Inactive Vital Signs [RC] Q4HR Care 02/28/18 17:19 Active Consult to Physician [CONS] Routine Cons 02/28/18 06:57 Active OT Evaluation and Treatment [CONS] Routine Cons 02/28/18 06:56 Active PT Evaluation and Treatment [CONS] Routine Cons 02/28/18 06:56 Active Regular Diet [DIET] Diet 02/28/18 Lunch Active Acetaminophen/oxyCODONE [Percocet 325-5 MG] Med 02/28/18 13:00 Active 1 - 2 tab PO Q4H PRN Bisacodyl [Dulcolax] Med 02/28/18 13:00 Active 5 mg PO DAILY PRN Cyclobenzaprine [Flexeril] Med 02/28/18 13:00 Active 10 mg PO TID PRN Docusate Sodium [Colace] Med 02/28/18 21:00 Active 100 mg PO BID Famotidine [Pepcid] Med 02/28/18 21:00 Active 20 mg PO Q12H Ketorolac [Toradol] Med 02/28/18 13:00 Active 15 mg IVPUSH Q6H PRN Levothyroxine [Synthroid] Med 03/01/18 07:00 Active 100 mcg PO DAILY@0700 Magnesium Hydroxide [Milk of Magnesia] Med 02/28/18 13:00 Active 30 ml PO BID PRN Morphine Med 02/28/18 13:00 Active 2 mg IVPUSH Q2H PRN Naloxone [Narcan] Med 02/28/18 13:00 Active 0.1 mg IVPUSH Q5M PRN Nicotine [Habitrol] Med 02/28/18 15:30 Active 14 mg TRDERM DAILY Ondansetron [Zofran] Med 02/28/18 13:00 Active 4 mg IVPUSH Q6H PRN Patient's Own Medication [Ptom] Med 02/28/18 21:00 Active 150 each PO BID Remove Patch Med 03/01/18 15:30 Active 1 ea TRDERM Q24H Rivaroxaban [Xarelto] Med 03/01/18 09:00 Active 10 mg PO DAILY Sennosides [Senna] Med 02/28/18 13:00 Active 8.6 mg PO BID PRN ceFAZolin [Ancef] 2 gm Med 02/28/18 18:30 Active Premix Bag 1 bag IV Q8H Antiembolic Hose [OM.PC] Per Unit Routine Oth 02/28/18 06:58 Ordered Hip Precautions Posterior [OM.PC] Routine Oth 02/28/18 06:56 Ordered Ice Therapy [OM.PC] Per Unit Routine Oth 02/28/18 06:58 Ordered Pulse Oximetry Continuous Monitoring [OM.PC] Routine Oth 02/28/18 11:28 Active Sequential Compression Device [OM.PC] Per Unit Routine Oth 02/28/18 06:57 Ordered Resuscitation Status Routine Resus Stat 02/28/18 06:57 Ordered Medication Orders Bisacodyl (Dulcolax) 5 mg PO DAILY PRN PRN Reason: Constipation Cyclobenzaprine HCl (Flexeril) 10 mg PO TID PRN PRN Reason: Spasms Docusate Sodium (Colace) 100 mg PO BID [facility] Last Admin: 02/28/18 20:41 Dose: 100 mg Famotidine (Pepcid) 20 mg PO Q12H [facility] Last Admin: 02/28/18 20:41 Dose: 20 mg Cefazolin Sodium/Dextrose 2 gm (/ Premix) 50 mls @ 100 mls/hr IV Q8H [facility] Stop: 03/01/18 10:59 Last Admin: 03/01/18 01:43 Dose: 100 mls/hr Infusion: 02/28/18 18:30 Dose: 100 mls/hr Admin: 02/28/18 18:00 Dose: 100 mls/hr Ketorolac Tromethamine (Toradol) 15 mg IVPUSH Q6H PRN PRN Reason: Pain Levothyroxine Sodium (Synthroid) 100 mcg PO DAILY@0700 [facility] Last Admin: 03/01/18 06:01 Dose: 100 mcg Magnesium Hydroxide (Milk Of Magnesia) 30 ml PO BID PRN PRN Reason: Constipation Miscellaneous Information (Remove Patch) 1 ea TRDERM Q24H [facility] Morphine Sulfate (Morphine) 2 mg IVPUSH Q2H PRN PRN Reason: Breakthrough Pain Naloxone HCl (Narcan) 0.1 mg IVPUSH Q5M PRN PRN Reason: Oversedation Nicotine (Habitrol) 14 mg TRDERM DAILY [facility] Last Admin: 02/28/18 18:42 Dose: Not Given Ondansetron HCl (Zofran) 4 mg IVPUSH Q6H PRN PRN Reason: Nausea/Vomiting Oxycodone/Acetaminophen (Percocet 325-5 Mg) 1 - 2 tab PO Q4H PRN PRN Reason: Pain Last Admin: 03/01/18 05:58 Dose: 2 tab Admin: 03/01/18 01:41 Dose: 1 tab Admin: 02/28/18 22:52 Dose: 1 tab Admin: 02/28/18 17:59 Dose: 2 tab Bupropion 150 Mg Tab (.Sr Ptom) 150 each PO BID [facility] Last Admin: 02/28/18 20:42 Dose: Rivaroxaban (Xarelto) 10 mg PO DAILY [facility] Senna (Senna) 8.6 mg PO BID PRN PRN Reason: Constipation - Assessment Assessment (Free Text/Narrative):: POD#1 - left MONA - Plan Plan (Free Text/Narrative):: 1. Hgb 11.2. 2. Xarelto 10mg PO daily. 3. Discharge to home today. 4. Outpatient therapy. The pt's case was discussed with Dr. Funk.
--- NOTE | 2018-03-01 07:52 | PCM.DCSUM1 ---
Discharge Summary - Hospital Course Brief History: Asmita is a 57 yo female who underwent left MONA with Dr. Funk on 02-28-2018. The procedure was completed under spinal anesthesia with sedation. The pt tolerated the procedure well and was admitted to the Medical- Surgical Unit. Medical management was provided by the Hospitalist service. The pt's Hospital course was uneventful. The pt's Hgb on POD#1 was 11.2. On POD#1, Xarelto 10mg PO daily was initiated for VTE prophylaxis. SCDs and TEDs were also ordered. A dressing was placed at the incision site at the time of surgery and remained clean and dry. The pt participated in P.T. and O.T. and progressed well. She followed the MONA precautions. The pt was allowed to WBAT. On POD#1, the pt was deemed appropriate to discharge to home. - Discharge Data Discharge Date: 03/01/18 Discharge Disposition: Home, Self-Care 01 Condition: Good - Patient Summary/Data Consults: Consultations 02/28/18 06:56 OT Evaluation and Treatment [CONS] Routine PT Evaluation and Treatment [CONS] Routine 02/28/18 06:57 Consult to Physician [CONS] Routine - Patient Instructions Diet: Usual Diet as Tolerated Activity: Apply Ice, As Tolerated, Elevate Extremity, Full Weight Bearing Activity, Other: Total hip precautions Driving: Do Not Drive Showering/Bathing: May Shower Wound/Incision Care: Keep Operative Site/Wound Site Clean and Dry, Do NOT Change Dressing Notify Provider of: Fever, Increased Pain, Swelling and Redness, Drainage, Nausea and/or Vomiting Other/Special Instructions: Please get up and moving around EVERY HOUR while awake. This helps to prevent blood clots. Have help with mobility as needed. Please take the Xarelto blood thinner medication daily. Please wear the VARGAS hose during the day and you may remove them at night. Please schedule for P.T. Complete the P.T. exercises that you learned in the Hospital. Follow the total hip precautions. Please use the pain medication as needed. The medication may cause drowsiness and/or constipation. You could use a stool softener like docusate sodium or Colace 100mg twice daily and/or a laxative like Miralax daily for constipation. Contact your primary care provider for further instructions if you are constipated. Try to wean from use of the pain medication as soon as able. Please do not use other medications that may cause drowsiness (other pain medications, anxiety pills, sleeping pills, allergy medications that cause drowsiness) while using the pain medication. Please do not use alcohol while using the pain medication. Use the incentive spirometer often. Please place ice to the hip often. Please elevate the limb to decrease swelling. Keep the Mepilex dressing in place until follow-up. Please notify the Clinic if the dressing is saturated or rolls. Increase protein intake in your diet as this helps with healing. If you are a diabetic, please closely monitor your blood sugars and notify your primary care provider of your values. Elevated blood sugars increases the risk of infection. Please call [phone] with questions or concerns. - Discharge Plan *PRESCRIPTION DRUG MONITORING PROGRAM REVIEWED*: No *COPY OF PRESCRIPTION DRUG MONITORING REPORT IN PATIENT SOHAN: No Prescriptions/Med Rec: Acetaminophen/oxyCODONE [Percocet 325-5 MG] 1 - 2 tab PO Q6H PRN #60 tablet PRN Reason: Pain Rivaroxaban [Xarelto] 10 mg PO DAILY #40 tablet Home Medications: Home Meds Levothyroxine [Synthroid] 100 mcg PO DAILY 02/25/18 [History] buPROPion [Wellbutrin SR] 150 mg PO BID 02/25/18 [History] Acetaminophen/oxyCODONE [Percocet 325-5 MG] 1 - 2 tab PO Q6H PRN #60 tablet 06/17 [Rx] Bisacodyl [Dulcolax] 5 mg PO DAILY PRN tablet 02/28/18 [Rx] Docusate Sodium [Colace] 100 mg PO BID cap 02/28/18 [Rx] Famotidine [Pepcid] 20 mg PO Q12H tablet 02/28/18 [Rx] Magnesium Hydroxide [Milk of Magnesia] 30 ml PO BID PRN cup 02/28/18 [Rx] Nicotine [Habitrol] 14 mg TRDERM DAILY patch 02/28/18 [Rx] Remove Patch 1 ea TRDERM Q24H each 02/28/18 [Rx] Rivaroxaban [Xarelto] 10 mg PO DAILY #40 tablet 02/28/18 [Rx] Sennosides [Senna] 8.6 mg PO BID PRN tablet 02/28/18 [Rx] Patient Handouts: Steps to Quit Smoking Referrals: Sariah Montes De Oca PA-C [Physician Automobile Relocation Engineer] - - Patient Data Vitals - Most Recent: Last Vital Signs Temp 98.2 F 03/01/18 04:37 Pulse 72 03/01/18 04:37 Resp 18 03/01/18 04:37 BP 120/73 03/01/18 04:37 Pulse Ox 100 03/01/18 04:37 Weight - Most Recent: 161 lb 1.6 oz I&O - Last 24 hours: Intake & Output 02/28/18 03/01/18 03/01/18 22:59 06:59 14:59 Intake Total 860 1545 Output Total 575 Balance 285 1545 Lab Results - Last 24 hrs: Laboratory Results - last 24 hr 02/28/18 03/01/18 03/01/18 Range/Units 09:05 06:05 06:05 WBC 5.41 (3.98-10.04) K/mm3 RBC 3.56 L (3.98-5.22) M/mm3 Hgb 11.2 (11.2-15.7) gm/L Hct 34.7 (34.1-44.9) % MCV 97.5 H (79.4-94.8) fl MCH 31.5 (25.6-32.2) pg MCHC 32.3 (32.2-35.5) g/dl RDW Std Deviation 44.1 (36.4-46.3) fL Plt Count 240 (182-369) K/mm3 MPV 9.4 (9.4-12.3) fl Sodium 138 (136-145) mEq/L Potassium 4.0 (3.5-5.1) mEq/L Chloride 103 (98-107) mEq/L Carbon Dioxide 31 (21-32) mEq/L Anion Gap 8.0 (5-15) BUN 9 (7-18) mg/dL Creatinine 0.8 (0.55-1.02) mg/dL Est Cr Clr Drug Dosing 62.63 mL/min Estimated GFR (MDRD) > 60 (>60) mL/min BUN/Creatinine Ratio 11.3 L (14-18) Glucose 92 (74-106) mg/dL Calcium 8.4 L (8.5-10.1) mg/dL Total Bilirubin 0.6 (0.2-1.0) mg/dL AST 326 H (15-37) U/L ALT 225 H (14-59) U/L Alkaline Phosphatase 242 H (46-116) U/L Total Protein 7.1 (6.4-8.2) g/dl Albumin 3.3 L (3.4-5.0) g/dl Globulin 3.8 gm/dL Albumin/Globulin Ratio 0.9 L (1-2) Blood Type O POSITIVE Gel Antibody Screen Negative Med Orders - Current: Current Medications Bisacodyl (Dulcolax) 5 mg PO DAILY PRN PRN Reason: Constipation Cyclobenzaprine HCl (Flexeril) 10 mg PO TID PRN PRN Reason: Spasms Docusate Sodium (Colace) 100 mg PO BID [facility] Last Admin: 02/28/18 20:41 Dose: 100 mg Famotidine (Pepcid) 20 mg PO Q12H [facility] Last Admin: 02/28/18 20:41 Dose: 20 mg Cefazolin Sodium/Dextrose 2 gm (/ Premix) 50 mls @ 100 mls/hr IV Q8H [facility] Stop: 03/01/18 10:59 Last Admin: 03/01/18 01:43 Dose: 100 mls/hr Ketorolac Tromethamine (Toradol) 15 mg IVPUSH Q6H PRN PRN Reason: Pain Levothyroxine Sodium (Synthroid) 100 mcg PO DAILY@0700 [facility] Last Admin: 03/01/18 06:01 Dose: 100 mcg Magnesium Hydroxide (Milk Of Magnesia) 30 ml PO BID PRN PRN Reason: Constipation Miscellaneous Information (Remove Patch) 1 ea TRDERM Q24H [facility] Morphine Sulfate (Morphine) 2 mg IVPUSH Q2H PRN PRN Reason: Breakthrough Pain Naloxone HCl (Narcan) 0.1 mg IVPUSH Q5M PRN PRN Reason: Oversedation Nicotine (Habitrol) 14 mg TRDERM DAILY [facility] Last Admin: 02/28/18 18:42 Dose: Not Given Ondansetron HCl (Zofran) 4 mg IVPUSH Q6H PRN PRN Reason: Nausea/Vomiting Oxycodone/Acetaminophen (Percocet 325-5 Mg) 1 - 2 tab PO Q4H PRN PRN Reason: Pain Last Admin: 03/01/18 05:58 Dose: 2 tab Bupropion 150 Mg Tab (.Sr Ptom) 150 each PO BID [facility] Last Admin: 02/28/18 20:42 Dose: Not Given Rivaroxaban (Xarelto) 10 mg PO DAILY [facility] Senna (Senna) 8.6 mg PO BID PRN PRN Reason: Constipation Discontinued Medications Acetaminophen (Tylenol) 975 mg PO ONETIME [facility] Stop: 02/28/18 13:00 Last Admin: 02/28/18 09:35 Dose: 975 mg Bupivacaine HCl (Marcaine 0.25%) Confirm Administered Dose 30 ml .ROUTE .STK- MED ONE Stop: 02/28/18 09:07 Last Admin: 02/28/18 12:25 Dose: 20 ml Cefazolin Sodium (Ancef) Confirm Administered Dose 2 gm .ROUTE .STK-MED ONE Stop: 02/28/18 09:01 Cefazolin Sodium (Ancef) Confirm Administered Dose 2 gm .ROUTE .STK-MED ONE Stop: 02/28/18 09:06 Last Admin: 02/28/18 12:20 Dose: 2 gm Morphine Sulfate 8 mg/Epinephrine HCl 0.3 mg/Cefuroxime Sodium 750 mg/Ketorolac Tromethamine 30 mg/Sodium Chloride 27.9 ml 0 mg .XX ONETIME ONE Stop: 02/28/18 11:06 Last Admin: 02/28/18 12:24 Dose: 788.3 mg Diphenhydramine HCl (Benadryl) 25 mg IVPUSH Q6H PRN PRN Reason: pruritis Stop: 02/28/18 16:00 Diphenhydramine HCl (Benadryl) 25 mg IVPUSH ONETIME ONE Stop: 02/28/18 21:45 Last Admin: 02/28/18 22:52 Dose: 25 mg Ephedrine Sulfate (Ephedrine In Ns) Confirm Administered Dose 25 mg .ROUTE .STK- MED ONE Stop: 02/28/18 11:17 Fentanyl (Sublimaze) Confirm Administered Dose 100 mcg .ROUTE .STK-MED ONE Stop: 02/28/18 09:00 Fentanyl (Sublimaze) 50 mcg IVPUSH Q5M PRN PRN Reason: Pain Stop: 02/28/18 15:00 Lactated Ringer's (Ringers, Lactated) 1,000 mls @ 125 mls/hr IV ASDIRECTED ARMANDO Stop: 02/28/18 23:00 Last Admin: 02/28/18 13:35 Dose: 125 mls/hr Lidocaine HCl (Xylocaine-Mpf 1%) Confirm Administered Dose 4 mls @ as directed .ROUTE .STK-MED ONE Stop: 02/28/18 08:59 Lactated Ringer's (Ringers, Lactated) Confirm Administered Dose 1,000 mls @ as directed .ROUTE .STK-MED ONE Stop: 02/28/18 09:07 Lactated Ringer's (Ringers, Lactated) Confirm Administered Dose 1,000 mls @ as directed .ROUTE .STK-MED ONE Stop: 02/28/18 11:31 Iodine (Iodine 2% Mild Tincture) Confirm Administered Dose 30 ml .ROUTE .STK- MED ONE Stop: 02/28/18 09:06 Last Admin: 02/28/18 12:19 Dose: 18 ml Ketamine HCl (Ketalar) Confirm Administered Dose 500 mg .ROUTE .STK-MED ONE Stop: 02/28/18 11:23 Lidocaine/Sodium Bicarbonate (Buffered Lidocaine 1% In Ns 8.4%) 0.25 ml IDERM ONETIME PRN PRN Reason: Prior to IV Start Stop: 02/28/18 18:00 Last Admin: 02/28/18 09:10 Dose: 0.25 ml Midazolam HCl (Versed 1 Mg/Ml) Confirm Administered Dose 2 mg .ROUTE .STK-MED ONE Stop: 02/28/18 09:00 Midazolam HCl (Versed 1 Mg/Ml) Confirm Administered Dose 2 mg .ROUTE .STK-MED ONE Stop: 02/28/18 11:23 Morphine Sulfate (Duramorph Pf) Confirm Administered Dose 10 mg .ROUTE .STK-MED ONE Stop: 02/28/18 09:06 Ondansetron HCl (Zofran) 4 mg IVPUSH ONETIME PRN PRN Reason: Nausea/Vomiting Stop: 02/28/18 16:00 Ondansetron HCl (Zofran) Confirm Administered Dose 4 mg .ROUTE .STK-MED ONE Stop: 02/28/18 12:42 Oxycodone HCl (Oxycontin) 10 mg PO ONETIME [facility] Stop: 02/28/18 13:00 Last Admin: 02/28/18 09:35 Dose: 10 mg Phenylephrine HCl (Phenylephrine In Ns 100 Mcg/Ml) Confirm Administered Dose 1 mg .ROUTE .STK-MED ONE Stop: 02/28/18 11:17 Pregabalin (Lyrica) 50 mg PO ONETIME [facility] Stop: 02/28/18 13:00 Last Admin: 02/28/18 09:35 Dose: 50 mg Propofol (Diprivan 20 Ml) Confirm Administered Dose 600 mg .ROUTE .STK-MED ONE Stop: 02/28/18 08:59 Sodium Chloride (Saline Flush) 10 ml FLUSH ASDIRECTED PRN PRN Reason: Keep Vein Open Stop: 02/28/18 18:00 Tranexamic Acid (Cyklokapron) Confirm Administered Dose 1,000 mg .ROUTE .STK- MED ONE Stop: 02/28/18 09:06 Last Admin: 02/28/18 12:26 Dose: 1,000 mg Vancomycin HCl (Vancomycin) Confirm Administered Dose 1 gm .ROUTE .STK-MED ONE Stop: 02/28/18 09:06 Last Admin: 02/28/18 12:26 Dose: 1 gm
[2018-03-01] MEDS: Famotidine 20 MG Tab PO SCH (08:13)
[2018-03-01] MEDS: Docusate Sodium 100 MG Cap PO SCH (08:13)
[2018-03-01] MEDS: Nicotine 14 MG/24 Hr Patch TRDERM SCH (08:58)
[2018-03-01] MEDS: BUPROPION 150 MG PO SCH (08:58)
[2018-03-01] MEDS ORDERED: Rivaroxaban 10 MG Tab PO SCH (09:00)
--- NOTE | 2018-03-01 09:08 | PCM.SN ---
<Erin Sosa - Last Filed: 03/01/18 09:16> - Free Text/Narrative Note: Labs are elevated here: AST 326, ALT 225, ALK Phos 242. GGT pending. Need to repeat labs with PCP Dr. Cuenca in [place] in 7-10 days. Avoid Tylenol in the meantime. <Katey Guaman - Last Filed: 03/01/18 12:18> - Free Text/Narrative Note: This is likely localized hypo-perfusion. Patient is not on statin. Defer follow up outpatient and avoid acetaminophen containing product for now.
--- NOTE | 2018-03-01 09:24 | PCM48HPAN ---
Post Anesthesia Note - EVALUATION WITHIN 48HRS OF ANESTHETIC Vital Signs in Normal Range: Yes Patient Participated in Evaluation: Yes Respiratory Function Stable: Yes Airway Patent: Yes Cardiovascular Function Stable: Yes Hydration Status Stable: Yes Pain Control Satisfactory: Yes Nausea and Vomiting Control Satisfactory: Yes Mental Status Recovered: Yes
--- NOTE | 2018-03-07 09:55 | PCM.OPNOTE ---
- General Post-Op/Procedure Note Date of Surgery/Procedure: 02/28/18 Operative Procedure(s): left total hip arthroplasty Pre Op Diagnosis: left hip osteoarthrosis Post-Op Diagnosis: Same Anesthesia Technique: Local, MAC, Spinal Primary Surgeon: Rob Funk Anesthesia Provider: Micaela Lord [employer] Work Supervisor: Sariah Montes De Oca [employer] Work Supervisor: Myra Rushing EBVika in mLs: 250 Complications: None Condition: Good Free Text/Narrative:: size 52 28+8 MDM 42/28 size 5 stem
--- NOTE | 2018-03-09 07:54 | OR ---
DATE OF OPERATION: 02/28/2018 SURGEON: Rob Funk MD OPERATION PERFORMED: Left total hip arthroplasty. PREOPERATIVE DIAGNOSIS: Left hip osteoarthrosis. POSTOPERATIVE DIAGNOSIS: Left hip osteoarthrosis. ANESTHESIA: Local MAC with spinal. ANESTHESIA PROVIDER: Micaela Lord CRNA. ELEMENTARY SCHOOL REGISTRAR: Sariah Montes De Oca PA-C and Myra Rushing LPN. ESTIMATED BLOOD LOSS: 250 mL. COMPLICATIONS: None. CONDITION: Stable. IMPLANTS: 1. Strawn size 52 mm Tritanium II acetabular cup. 2. Kodak size 28 +8 mm ceramic MDM. 3. MDM 42/28 components. 4. Kodak size 5 Accolade II stem. DESCRIPTION OF PROCEDURE: The patient was identified in the preoperative holding area. Proper site was marked and identified by the surgeon. The patient was taken back to the operating theater, where after adequate anesthesia, the patient was placed in a right lateral decubitus position. Axillary roll was placed. PEGs were then placed and well padded. All bony prominences were well padded. At this time, left hip was then sterilely prepped and draped in the usual sterile fashion. OR time-out was performed. The patient received 2 g of IV Ancef. Standard posterior incision was made centered over the greater trochanter. This was taken down to the IT band and gluteal fascia, which was incised along the incisional length. Short external rotators were then identified and takedown of the short external rotators was done from the level of the piriformis down to the lesser trochanter and the capsulotomy was performed at the same time. Hip was then dislocated. Neck cut was then completed and found to be adequate. Attention was turned to the acetabulum. Anterior and posterior acetabular retractors were placed. Remaining labrum as well as pulvinar was removed. Starting with a 44 reamer, I was able to ream up to 52, which was found to have good adequate bite. At this time, trial was found to have good fixation. A 52 mm Tritanium II acetabular cup was then impacted into place in roughly 40 degrees of abduction and 20 degrees of anteversion. At this time, the MDM liner was impacted into place and attention was turned to the femur. Starting laterally with a box chisel, starter awl was placed down the canal. At this time, starting with the 0 broach, I was able to broach up to a size 5, which was found to be rotationally and vertically stable. A size 5 trial stem was placed along with a 35 neck and 28 +0 MDM components were trialed. The patient's leg lengths were noted to be a little bit short, so at this time, we did trial a +8 and was found to have adequate anglican of leg lengths and was stable throughout range of motion and bone hook was needed to dislocate the hip. At this time, the size 5 Accolade II stem was impacted into place. After the trial components were removed, a 42/28 MDM components were constructed on the back table and then were impacted onto the stem. Hip was then relocated. A #5 Ethibond suture was used for closure of the short external rotators and capsule. A 1 L dilute Betadine solution was irrigated through the hip along with 3 L of pulse lavage irrigation with Ancef. Periarticular injection was completed. A #2 barbed suture was used for closure of the IT band and gluteal fascia, and 2-0 Vicryl was used subcutaneously, and Prineo was used for the skin. The patient was sent to PACU in stable condition. MMODAL /[id number]
== END 2018-03-01 13:45 | disposition home or self-care (01) | DRG 470 ==
LOC: JD.MS 08:41
PROVIDERS: ADMIT Orthopaedic Surgery; ATTEND Orthopaedic Surgery
PROC: 0SRB0JZ Replacement of Left Hip Joint with Synthetic Substitute, Open Approach (ICD-10-PCS; principal; 2018-02-28)
PROC: 3E02340 Introduction of Influenza Vaccine into Muscle, Percutaneous Approach (ICD-10-PCS; 2018-03-01)
DX: M16.12 Unilateral primary osteoarthritis, left hip (principal); Z87.891 Personal history of nicotine dependence; Z79.899 Other long term (current) drug therapy; Z86.718 Personal history of other venous thrombosis and embolism; M85.80 Other specified disorders of bone density and structure, unspecified site; Z78.0 Asymptomatic menopausal state; Z79.890 Hormone replacement therapy; E03.9 Hypothyroidism, unspecified; Z90.710 Acquired absence of both cervix and uterus; Z90.49 Acquired absence of other specified parts of digestive tract; Z96.641 Presence of right artificial hip joint; Z23 Encounter for immunization
CPT/HCPCS: 01214; 36415; 73501-26-LT; 73501-LT; 80053; 82977; 85027; 86850; 86900; 86901; 87641; 90686; 94762; 97110-GP; 97116-GP; 97161-GP; 97165-GO; 97530-GP; 97535-GO; A9270-GY; C1776; G0008; J0171; J0690; J0697; J1200; J1885; J2001; J2250; J2270; J2370; J2405; J2704; J3010; J3370; J3490; J7050; J7120

== ENCOUNTER 2018-09-26 18:51 | Emergency (ER) | payer MEDICAID ==
[2018-09-26] MEDS ORDERED: Ketorolac 30 MG/ML SDV IM ONE (20:01)
--- NOTE | 2018-09-26 20:04 | EDM.PDOC ---
ED HPI GENERAL MEDICAL PROBLEM - General Chief Complaint: Abdominal Pain Stated Complaint: RANDOM PAIN Time Seen by Provider: 09/26/18 19:30 Source of Information: Reports: Patient History Limitations: Reports: No Limitations - History of Present Illness INITIAL COMMENTS - FREE TEXT/NARRATIVE: 57 y/o female presents to ER with cc right sided chest pain. She states the pain started yesterday and seems to be getting worse. She reports the pain increases with taking a deep breath or lowering her arm below her waist. She denies SOB, fever or chills. She denies lifting anything heavy. She is in no apparent distress at this time. Onset Date: 09/25/18 Onset Time: 12:00 Duration: Getting Worse Location: Reports: Chest Quality: Reports: Ache Severity: Mild Improves with: Reports: None Worsens with: Reports: Breathing, Movement Context: Reports: Activity Associated Symptoms: Denies: Chest Pain, Cough, Fever/Chills, Headaches, Nausea/ Vomiting Right Upper Abdomen Pain Score (Numeric/FACES): 9 - Related Data Allergies Allergy/AdvReac Type Severity Reaction Status Date / Time No Known Allergies Allergy Verified 02/25/18 16:48 Home Meds: Home Meds Levothyroxine [Synthroid] 100 mcg PO DAILY 02/25/18 [History] buPROPion [Wellbutrin SR] 150 mg PO BID 02/25/18 [History] Acetaminophen/HYDROcodone [Plummer 325-5 MG] 1 tab PO Q6H PRN 4 Days #12 tablet [Rx] Estradiol 0.5 mg PO DAILY 09/26/18 [History] Ketorolac [Toradol] 10 mg PO Q6H PRN 7 Days #20 tab 09/26/18 [Rx] Past Medical History HEENT History: Reports: None Cardiovascular History: Reports: None Respiratory History: Reports: None Gastrointestinal History: Reports: None Genitourinary History: Reports: None BOOM MAN History: Reports: None Musculoskeletal History: Reports: Osteoarthritis Neurological History: Reports: None Psychiatric History: Reports: None Endocrine/Metabolic History: Reports: Hypothyroidism Hematologic History: Reports: None Immunologic History: Reports: None Oncologic (Cancer) History: Reports: None Dermatologic History: Reports: None - Infectious Disease History Infectious Disease History: Reports: None - Past Surgical History Head Surgeries/Procedures: Reports: None HEENT Surgical History: Reports: None Cardiovascular Surgical History: Reports: None Respiratory Surgical History: Reports: Other (See Below) Other Respiratory Surgeries/Procedures: right lung surgery- had pneumonia- took scar tissue out GI Surgical History: Reports: Cholecystectomy Female Surgical History: Reports: Hysterectomy Endocrine Surgical History: Reports: None Neurological Surgical History: Reports: None Musculoskeletal Surgical History: Reports: Hip Replacement Oncologic Surgical History: Reports: None Dermatological Surgical History: Reports: None Social & Family History - Family History Family Medical History: Noncontributory - Tobacco Use Smoking Status *Q: Current Every Day Smoker Years of Tobacco use: 40 Packs/Tins Daily: 0.2 Used Tobacco, but Quit: No - Caffeine Use Caffeine Use: Reports: Coffee, Tea - Alcohol Use Days Per Week of Alcohol Use: 7 Number of Drinks Per Day: 1 Total Drinks Per Week: 7 - Recreational Drug Use Recreational Drug Use: No ED ROS GENERAL - Review of Systems Review Of Systems: See Below Constitutional: Denies: Fever, Chills HEENT: Reports: No Symptoms Respiratory: Reports: Other (right chest wall pain.) Cardiovascular: Denies: Chest Pain Endocrine: Reports: No Symptoms GI/Abdominal: Reports: No Symptoms : Reports: No Symptoms Musculoskeletal: Reports: No Symptoms Skin: Reports: No Symptoms Neurological: Reports: No Symptoms Psychiatric: Reports: No Symptoms Hematologic/Lymphatic: Reports: No Symptoms Immunologic: Reports: No Symptoms ED EXAM, GI/ABD - Physical Exam Exam: See Below Exam Limited By: No Limitations General Appearance: Alert, WD/WN, No Apparent Distress Head: Atraumatic, Normocephalic Neck: Normal Inspection, Supple, Non-Tender, Full Range of Motion Respiratory/Chest: No Respiratory Distress, Lungs Clear, Normal Breath Sounds, No Accessory Muscle Use, Chest Non-Tender, Other (right chest wall pain reproducible with deep breath or ROM of arms. ) Cardiovascular: Normal Peripheral Pulses, Regular Rate, Rhythm, No Edema, No Gallop, No JVD, No Murmur, No Rub Back Exam: Normal Inspection, Full Range of Motion, Vertebral Tenderness Extremities: Normal Inspection, Non-Tender, No Pedal Edema, Normal Capillary Refill Neurological: Alert, Oriented, Normal Cognition, Normal Gait Psychiatric: Normal Affect, Normal Mood Skin Exam: Warm, Dry, Intact, Normal Color, No Rash Course - Vital Signs Last Recorded V/S: Last Vital Signs Temp 98.4 F 09/26/18 19:17 Pulse 76 09/26/18 19:17 Resp 18 09/26/18 19:17 BP 152/105 H 09/26/18 19:17 Pulse Ox 98 09/26/18 19:17 - Orders/Labs/Meds Orders: Active Orders 24 hr Category Date Time Status Chest 2V [CR] Stat Exams 09/26/18 20:00 Taken Acetaminophen/HYDROcodone [Plummer 325-5 MG] Med 09/26/18 21:52 Once 1 tab PO ONETIME ONE Labs: Laboratory Tests 09/26/18 09/26/18 09/26/18 Range/Units 20:30 20:30 20:30 WBC 4.77 (3.98-10.04) K/mm3 RBC 3.71 L (3.98-5.22) M/mm3 Hgb 11.8 (11.2-15.7) gm/L Hct 36.3 (34.1-44.9) % MCV 97.8 H (79.4-94.8) fl MCH 31.8 (25.6-32.2) pg MCHC 32.5 (32.2-35.5) g/dl RDW Std Deviation 46.5 H (36.4-46.3) fL Plt Count 285 (182-369) K/mm3 MPV 8.9 L (9.4-12.3) fl Neut % (Auto) 49.3 (34.0-71.1) % Lymph % (Auto) 36.1 (19.3-51.7) % [place] % (Auto) 13.4 H (4.7-12.5) % Eos % (Auto) 1.0 (0.7-5.8) Baso % (Auto) 0.2 (0.1-1.2) % Neut # (Auto) 2.35 (1.56-6.13) K/mm3 Lymph # (Auto) 1.72 (1.18-3.74) K/mm3 [place] # (Auto) 0.64 H (0.24-0.36) K/mm3 Eos # (Auto) 0.05 (0.04-0.36) K/mm3 Baso # (Auto) 0.01 (0.01-0.08) K/mm3 D-Dimer, Quantitative 0.35 (0.19-0.50) mg/L Sodium 138 (136-145) mEq/L Potassium 3.9 (3.5-5.1) mEq/L Chloride 101 (98-107) mEq/L Carbon Dioxide 28 (21-32) mEq/L Anion Gap 12.9 (5-15) BUN 17 (7-18) mg/dL Creatinine 0.9 (0.55-1.02) mg/dL Est Cr Clr Drug Dosing 55.68 mL/min Estimated GFR (MDRD) > 60 (>60) mL/min BUN/Creatinine Ratio 18.9 H (14-18) Glucose 86 (74-106) mg/dL Calcium 8.8 (8.5-10.1) mg/dL Total Bilirubin 0.3 (0.2-1.0) mg/dL AST 21 (15-37) U/L ALT 23 (14-59) U/L Alkaline Phosphatase 97 (46-116) U/L Total Protein 7.4 (6.4-8.2) g/dl Albumin 3.8 (3.4-5.0) g/dl Globulin 3.6 gm/dL Albumin/Globulin Ratio 1.1 (1-2) Meds: Medications Discontinued Medications Generic Name Dose Route Start Last Admin Trade Name Freq PRN Reason Stop Dose Admin Ketorolac Tromethamine 60 mg 09/26/18 20:01 09/26/18 20:06 Toradol IM 09/26/18 20:02 60 mg ONETIME ONE Administration - Re-Assessments/Exams Free Text/Narrative Re-Assessment/Exam: 09/26/18 21:02 chest x-ray reveals right pleural effusion. WBC 4.77 RBC 3.71 H & H 11.8/ 36.3. 09/26/18 21:52 D-dimer 0.35 Na+ 138 K+ 3.6 chl 101 co2 28 bun 17 creatine 0.9 glucose 86. She states she feels better after Toradol. I will discharge home with a small amount of Plummer and Toradol for pain. Instructed not to take this medication and drink, drive or operate machinery. Instructed her to use her incentive spirometer. Instructed her to follow up with her PCP later this week. Instructed to return to the ER for any new or acute worsening symptoms. She verbalized understanding and is comfortable with plan for discharge. Departure - Departure Time of Disposition: 21:55 Disposition: Home, Self-Care 01 Condition: Good Clinical Impression: Pleural effusion - Discharge Information Prescriptions: Acetaminophen/HYDROcodone [Plummer 325-5 MG] 1 tab PO Q6H PRN 4 Days #12 tablet PRN Reason: right chest wall pain Ketorolac [Toradol] 10 mg PO Q6H PRN 7 Days #20 tab PRN Reason: Pain Referrals: PCP,None [Primary Care Provider] - Forms: ED Department Discharge Additional Instructions: You have been diagnosis with right pleural effusion. Take Toradol as needed for pain or Plummer. Do not take Plummer and drink, drive or operate machinery. Follow up with your PCP later this week. Return to the ER for any new or acute worsening symptoms. - My Orders Last 24 Hours: My Active Orders 09/26/18 20:00 Chest 2V [CR] Stat 09/26/18 21:52 Acetaminophen/HYDROcodone [Plummer 325-5 MG] 1 tab PO ONETIME ONE - Assessment/Plan Last 24 Hours: My Active Orders 09/26/18 20:00 Chest 2V [CR] Stat 09/26/18 21:52 Acetaminophen/HYDROcodone [Plummer 325-5 MG] 1 tab PO ONETIME ONE
[2018-09-26] MEDS ORDERED: Acetaminophen/HYDROcodone 325-5 MG Tab PO ONE (21:52)
--- NOTE | 2018-09-27 07:01 | CR ---
Chest: Two views of the chest were obtained. Comparison: No prior chest x-ray. Blunting of the right lateral costophrenic angle is seen most likely due to chronic pleural thickening. Lungs are clear but hyperinflated. Slight degenerative change is scattered within the spine. Heart size is normal. Mild tortuosity of the thoracic aorta is seen. Nodule is noted adjacent to the left upper hilum either due to granuloma or vessel on end. Impression: 1. Emphysematous change. 2. Other findings which are felt to be incidental as described above. Nothing acute is suspected. Diagnostic code #2
== END 2018-09-26 22:09 | disposition home or self-care (01) ==
LOC: JD.ED 18:51
DX: J90 Pleural effusion, not elsewhere classified (principal); F17.210 Nicotine dependence, cigarettes, uncomplicated; E03.9 Hypothyroidism, unspecified; Z79.899 Other long term (current) drug therapy
CPT/HCPCS: 36415; 71046; 80053; 85025; 85379; 96372; 99283; A9270; J1885

== ENCOUNTER 2018-11-22 18:55 | Emergency (ER) | payer MEDICAID ==
--- NOTE | 2018-11-22 19:29 | EDM.PDOC ---
ED HPI GENERAL MEDICAL PROBLEM - General Chief Complaint: Cardiovascular Problem Stated Complaint: [facility] Time Seen by Provider: 11/22/18 19:10 Source of Information: Reports: Patient, RN Notes Reviewed History Limitations: Reports: No Limitations - History of Present Illness INITIAL COMMENTS - FREE TEXT/NARRATIVE: The patient states that she had right scapular area pain when she woke this morning. She took a single tablet of [place], left over from when she had a hysterectomy, sometime between 11:00 and noon, which she states helped her pain a little. She states that she was otherwise feeling well up until 18:00 tonight, when she developed the sensation like she might fall over, especially when leaning forward. She describes it as a sensation of disequilibrium, not exactly lightheadedness, and she denies that the room was spinning. She states that she also developed right front chest pain, which she describes as a "jolt"-like sensation. She has not identified any modifiers to her chest pain. She states that her off-balance sensation worsened, therefore she went to lie down. She developed the sensation of a dry mouth and difficulty swallowing, along with generalized weakness. She felt dyspneic. She felt shaky, and her throat felt tight, especially with swallowing. She felt anxious. She states that she felt like her legs weren't attached to her body. Her daughter called 911. According to the patient, her blood pressure was elevated when checked by EMS. EMS gave the patient some nitroglycerin spray and 4 baby aspirin. Here in the ED, the patient is found to be hemodynamically stable, saturating 100% on room air. She continues to have the right scapular and right anterior chest pain, along with the sense of disequilibrium, dry mouth, throat tightness , and mild dyspnea. She appears to be anxious. The patient's PCP is Dr. Cortez Yousef Her Kiss Mixer is Dr. Spencer Cook. Orthopedic Surgeon is Dr. Rob Funk. The patient does not recall the name of her ENT. Right Chest Pain Score (Numeric/FACES): 2 - Related Data Allergies Allergy/AdvReac Type Severity Reaction Status Date / Time No Known Allergies Allergy Verified 11/22/18 19:00 Home Meds: Home Meds Levothyroxine [Synthroid] 100 mcg PO DAILY 02/25/18 [History] buPROPion [Wellbutrin SR] 150 mg PO BID 02/25/18 [History] Acetaminophen/HYDROcodone [[place] 325-5 MG] 1 tab PO Q6H PRN 4 Days #12 tablet [Rx] Estradiol 0.5 mg PO DAILY 09/26/18 [History] Past Medical History Musculoskeletal History: Reports: Osteoarthritis Psychiatric History: Reports: Anxiety, Depression Endocrine/Metabolic History: Reports: Hypothyroidism - Past Surgical History HEENT Surgical History: Reports: Oral Surgery (wisdom teeth extraction) Respiratory Surgical History: Reports: Other (See Below) (Right VATS for empyema ) GI Surgical History: Reports: Cholecystectomy (1970s) Female Surgical History: Reports: Hysterectomy (complete), Salpingo- Oophorectomy (bilateral) Musculoskeletal Surgical History: Reports: Hip Replacement (bilateral), Other ( See Below) (Left ankle surgery) Social & Family History - Family History Family Medical History: Noncontributory - Tobacco Use Smoking Status *Q: Current Every Day Smoker Years of Tobacco use: 44 Packs/Tins Daily: 0.2 Packs/Tins Daily Comment: Down from 1 ppd - Caffeine Use Caffeine Use: Reports: Coffee, Tea - Alcohol Use Alcohol Use History: Yes Days Per Week of Alcohol Use: 7 Number of Drinks Per Day: 1 Total Drinks Per Week: 7 - Recreational Drug Use Recreational Drug Use: No - Living Situation & Occupation Living situation: Reports: , with Family (Daughter) Occupation: Unemployed ED ROS GENERAL - Review of Systems Review Of Systems: ROS reveals no pertinent complaints other than HPI. ED EXAM, GENERAL - Physical Exam Exam: See Below Exam Limited By: No Limitations General Appearance: Alert, WD/WN, Anxious Eye Exam: Bilateral Eye: EOMI, Normal Inspection Ears: Normal External Exam, Hearing Grossly Normal Nose: Normal Inspection Throat/Mouth: Normal Inspection, Normal Lips, Normal Voice, No Airway Compromise Head: Atraumatic, Normocephalic Neck: Normal Inspection, Full Range of Motion Respiratory/Chest: No Respiratory Distress, Lungs Clear, Normal Breath Sounds, No Accessory Muscle Use, Chest Non-Tender (to direct palpation on the right), Other (Having the patient pressed her hands together, flexing her pectoralis muscles, does not increase her right-sided chest discomfort, however, it does increase her sense of shortness of breath. Her right sided chest discomfort is increased by having her across her right arm across her chest.). No: Decreased Breath Sounds, Crackles, Rhonchi, Wheezing, Pleural Rub, Prolonged Expiration Cardiovascular: Normal Peripheral Pulses, Regular Rate, Rhythm, No Edema, No Gallop, No JVD, No Murmur, No Rub Peripheral Pulses: 4+: Radial (L), Radial (R) GI/Abdominal: Normal Bowel Sounds, Soft, Non-Tender, No Organomegaly, No Distention, No Abnormal Bruit, No Mass (Female) Exam: Deferred Rectal (Female) Exam: Deferred Back Exam: Normal Inspection, Full Range of Motion, Muscle Spasm (Reproducible pain with palpation of the right parascapular musculature) Extremities: Normal Inspection, Normal Range of Motion, No Pedal Edema, Normal Capillary Refill Neurological: Alert, Oriented, CN II-XII Intact, Normal Cognition, Normal Gait ( in ED jaquez, returning from the restroom), No Motor/Sensory Deficits Psychiatric: Anxious Skin Exam: Warm, Dry, Intact, Normal Color, No Rash EKG INTERPRETATION EKG Date: 11/22/18 Time: 18:58 Rhythm: NSR Rate (Beats/Min): 92 [place]: Normal P-Wave: Present QRS: Normal ST-T: Normal QT: Normal Comparison: NA - No Prior EKG Course - Vital Signs Last Recorded V/S: Last Vital Signs Temp 37.1 C 11/22/18 19:03 Pulse 91 11/22/18 19:03 Resp 18 11/22/18 19:03 BP 135/94 H 11/22/18 19:03 Pulse Ox 100 11/22/18 19:03 Orthostatic Blood Pressure [ 123/95 Standing] Orthostatic Blood Pressure [ 121/87 Supine] - Orders/Labs/Meds Labs: Laboratory Tests 11/22/18 11/22/18 11/22/18 Range/Units 19:36 19:36 19:36 WBC 5.76 (3.98-10.04) K/mm3 RBC 3.73 L (3.98-5.22) M/mm3 Hgb 12.3 (11.2-15.7) gm/L Hct 36.6 (34.1-44.9) % MCV 98.1 H (79.4-94.8) fl MCH 33.0 H (25.6-32.2) pg MCHC 33.6 (32.2-35.5) g/dl RDW Std Deviation 46.2 (36.4-46.3) fL Plt Count 282 (182-369) K/mm3 MPV 10.0 (9.4-12.3) fl Neutrophils % (Manual) 48 (40-60) % Band Neutrophils % 0 (0-10) % Lymphocytes % (Manual) 45 H (20-40) % Atypical Lymphs % 0 % Monocytes % (Manual) 3 (2-10) % Eosinophils % (Manual) 4 (0.7-5.8) % Basophils % (Manual) 0 L (0.1-1.2) Platelet Estimate Adequate Plt Morphology Comment Normal Anisocytosis 1+ slight RBC Morph Comment Not Reportable D-Dimer, Quantitative 0.39 (0.19-0.50) mg/L Puncture Site ABG pH (7.35-7.45) ABG pCO2 (35.0-45.0) mmHg ABG pO2 (80.0-100.0) mmHg ABG HCO3 (22.0-26.0) meq/L ABG O2 Saturation (96.0-97.0) % ABG Base Excess (-2-2.0) Dao Test A-a Gradient mmHg O2 Delivery Device Sodium 138 (136-145) mEq/L Potassium 3.8 (3.5-5.1) mEq/L Chloride 101 (98-107) mEq/L Carbon Dioxide 27 (21-32) mEq/L Anion Gap 13.8 (5-15) BUN 23 H (7-18) mg/dL Creatinine 1.0 (0.55-1.02) mg/dL Est Cr Clr Drug Dosing 49.49 mL/min Estimated GFR (MDRD) 57 (>60) mL/min BUN/Creatinine Ratio 23.0 H (14-18) Glucose 99 (74-106) mg/dL Calcium 9.2 (8.5-10.1) mg/dL Magnesium 2.1 (1.8-2.4) mg/dl Total Bilirubin 0.4 (0.2-1.0) mg/dL AST 48 H (15-37) U/L ALT 55 (14-59) U/L Alkaline Phosphatase 98 (46-116) U/L Troponin I < 0.017 (0.00-0.056) ng/mL Total Protein 7.5 (6.4-8.2) g/dl Albumin 4.0 (3.4-5.0) g/dl Globulin 3.5 gm/dL Albumin/Globulin Ratio 1.1 (1-2) TSH 3rd Generation 3.901 H (0.358-3.74) uIU/mL Urine Color (Yellow) Urine Appearance (Clear) Urine pH (5.0-8.0) Ur Specific [place] (1.005-1.030) Urine Protein (Negative) Urine Glucose (UA) (Negative) Urine Ketones (Negative) Urine Occult Blood (Negative) Urine Nitrite (Negative) Urine Bilirubin (Negative) Urine Urobilinogen (0.2-1.0) Ur Leukocyte Esterase (Negative) Urine RBC (0-5) /hpf Urine WBC (0-5) /hpf Ur Epithelial Cells (0-5) /hpf Urine Bacteria (FEW) /hpf Urine Mucus (FEW) /hpf 11/22/18 11/22/18 Range/Units 19:40 21:00 WBC (3.98-10.04) K/mm3 RBC (3.98-5.22) M/mm3 Hgb (11.2-15.7) gm/L Hct (34.1-44.9) % MCV (79.4-94.8) fl MCH (25.6-32.2) pg MCHC (32.2-35.5) g/dl RDW Std Deviation (36.4-46.3) fL Plt Count (182-369) K/mm3 MPV (9.4-12.3) fl Neutrophils % (Manual) (40-60) % Band Neutrophils % (0-10) % Lymphocytes % (Manual) (20-40) % Atypical Lymphs % % Monocytes % (Manual) (2-10) % Eosinophils % (Manual) (0.7-5.8) % Basophils % (Manual) (0.1-1.2) Platelet Estimate Plt Morphology Comment Anisocytosis RBC Morph Comment D-Dimer, Quantitative (0.19-0.50) mg/L Puncture Site Rt radial ABG pH 7.46 H (7.35-7.45) ABG pCO2 36.0 (35.0-45.0) mmHg ABG pO2 86.0 (80.0-100.0) mmHg ABG HCO3 25.5 (22.0-26.0) meq/L ABG O2 Saturation 97.0 (96.0-97.0) % ABG Base Excess 2.3 H (-2-2.0) Dao Test Positive A-a Gradient 4 mmHg O2 Delivery Device Room air Sodium (136-145) mEq/L Potassium (3.5-5.1) mEq/L Chloride (98-107) mEq/L Carbon Dioxide (21-32) mEq/L Anion Gap (5-15) BUN (7-18) mg/dL Creatinine (0.55-1.02) mg/dL Est Cr Clr Drug Dosing mL/min Estimated GFR (MDRD) (>60) mL/min BUN/Creatinine Ratio (14-18) Glucose (74-106) mg/dL Calcium (8.5-10.1) mg/dL Magnesium (1.8-2.4) mg/dl Total Bilirubin (0.2-1.0) mg/dL AST (15-37) U/L ALT (14-59) U/L Alkaline Phosphatase (46-116) U/L Troponin I (0.00-0.056) ng/mL Total Protein (6.4-8.2) g/dl Albumin (3.4-5.0) g/dl Globulin gm/dL Albumin/Globulin Ratio (1-2) TSH 3rd Generation (0.358-3.74) uIU/mL Urine Color Yellow (Yellow) Urine Appearance Clear (Clear) Urine pH 6.5 (5.0-8.0) Ur Specific [place] 1.015 (1.005-1.030) Urine Protein Negative (Negative) Urine Glucose (UA) Negative (Negative) Urine Ketones Negative (Negative) Urine Occult Blood Negative (Negative) Urine Nitrite Negative (Negative) Urine Bilirubin Negative (Negative) Urine Urobilinogen 0.2 (0.2-1.0) Ur Leukocyte Esterase Negative (Negative) Urine RBC 0-5 (0-5) /hpf Urine WBC 0-5 (0-5) /hpf Ur Epithelial Cells 0-5 (0-5) /hpf Urine Bacteria Few (FEW) /hpf Urine Mucus Not seen (FEW) /hpf - Re-Assessments/Exams Free Text/Narrative Re-Assessment/Exam: 11/22/18 19:28 The patient needs to use the restroom, therefore I have returned to enter orders. From what I have heard so far, the patient's complaint does not sound like angina, and her ECG, obtained by the triage nurse, is essentially normal. 11/22/18 19:43 I have finished examining the patient. Her right parascapular pain appears to be musculoskeletal, as it is reproducible with palpation, however it is not clear if her right anterior chest discomfort is musculoskeletal. It is made worse with her crossing her right arm across her chest, but pressing her hands together in front of her chest only increases her sense of shortness of breath, but does not increase the discomfort, and the pain is not reproducible with direct palpation. The patient's sense of disequilibrium and dissociation from her legs, throat tightness, and sense of anxiety, suggests that she may be suffering from hyperventilation syndrome, which is buttressed by the fact that her oxygen saturation is 100% on room air. I have ordered a workup to not only rule out a cardiac etiology, but evaluate for potential causes of hyperventilation, as well. 11/22/18 20:44 The patient is not orthostatic. 11/22/18 20:51 2-view chest radiograph reviewed. The cardiac silhouette is within normal limits. No pulmonary vascular congestion. There is blunting of the right costophrenic angle, but no suggestion of a pleural effusion, therefore this is likely due to pleural thickening. No focal infiltrate. No pneumothorax. There is hyperinflation, suggestive of COPD. There is thoracolumbar scoliosis. Formal read per the Radiologist pending. 11/22/18 22:37 Test results discussed with the patient. Her CBC is unremarkable. Her CMP is remarkable for a BUN elevated at 23, and AST elevated at 48, with the remainder of the CMP being normal. Her troponin is undetectably low. Her D-dimer is within normal limits. Her TSH is mildly elevated at 3.901. Her ABG, with a pH of 7.46 and a PCO2 of 36, indicates mild acute respiratory alkalosis. Her urinalysis is completely normal. The patient's right parascapular pain and, possibly, her right anterior chest pain, appear to be musculoskeletal in etiology. The remainder of the patient's symptoms, however, including her sense of disequilibrium, throat tightness, a sense of dissociation from her legs, dyspnea, shakiness and anxiety, would not be explained by muscle spasms. The patient's ABG found very mild hyperventilation, although the respiratory therapist was initially unsuccessful at acquiring an ABG while the patient was feeling symptomatic, therefore abandoned efforts. It was not until I requested that she retry that the ABG was acquired, and by that time, the patient was feeling much better, as she is now. Known medical causes of hyperventilation, including metabolic acidosis, hypocalcemia, hypoglycemia, hyperthyroidism, liver failure, severe anemia, sepsis, acute coronary event, pneumothorax, pneumonia, dysrhythmia, pulmonary embolus, and congestive heart failure were ruled out. By a process of elimination, then, it appears that the patient's hyperventilation, and the cause of her presenting symptoms, is most likely due to anxiety. Because this is the first time that this has happened to the patient, no specific treatment is required, however, I recommended that if her symptoms either persist or recur, that she follow-up with her PCP to discuss adjustment of her treatment for her anxiety disorder. 11/22/18 23:18 Notified by Lynda BENSON that when she went to discharge the patient, she became quite angry, as did her daughter, who was not present when I discussed the patient's test results with the patient. The patient's daughter apparently insisted that the patient was not hyperventilating, and that her symptoms were not related to anxiety, despite my extensive workup. The medical basis of her opinion is unclear. The patient apparently told Lynda BENSON that they were going to [place] for a second opinion. Of note, the patient asked a number of questions about the tests that I had ordered and how I interpreted them, but was not visibly angry when I saw her. Departure - Departure Time of Disposition: 22:44 Disposition: Home, Self-Care 01 Condition: Good Clinical Impression: Acute hyperventilation syndrome, Elevated TSH - Discharge Information *PRESCRIPTION DRUG MONITORING PROGRAM REVIEWED*: Not Applicable *COPY OF PRESCRIPTION DRUG MONITORING REPORT IN PATIENT SOHAN: Not Applicable Instructions: Hyperventilation Referrals: Pillo Zee MD [Ordering Only Provider] - Spencer Cook II, DPM [Physician] - Rob Funk MD [Physician] - Forms: ED Department Discharge Additional Instructions: You were seen in the emergency room for symptoms of disequilibrium, shakiness, throat tightness, a dissociation from your legs, and anxiety. Your right shoulder blade pain is almost certainly due to a muscle spasm, and your right anterior chest pain may be due to muscle spasm, as well. Workup in the ER included blood work, an arterial blood gas, a urinalysis, positional blood pressure checks, and an ECG. Your workup found your TSH to be mildly elevated at 3.901, indicating that you may be mildly hypo-thyroid. Your arterial blood gas found mild hyperventilation. Hyperventilation is usually due to anxiety, but there are some known medical causes, such as metabolic acidosis, hypocalcemia, hypoglycemia, hyperthyroidism, liver failure, severe anemia, sepsis, acute coronary event, pneumothorax, pneumonia, dysrhythmia, pulmonary embolus, and congestive heart failure. All of these were checked for and ruled out. By a process of elimination, then, the most likely cause of your hyperventilation is anxiety. Since this is the first and only time that this has happened to you, no further medical treatment is necessary, however, if your symptoms either persist or recur, he may need to have adjustment of your current antianxiety medicine. Please follow-up with your PCP, Dr. Cortez Yousef, in that regard. If any other problems, please do not hesitate to return to the ER.
--- NOTE | 2018-11-22 21:16 | CR ---
Chest: Top views of the chest are obtained. Comparison: Prior chest x-ray 09/26/18. Heart size is normal. Tortuous thoracic aorta is seen. Stable nodule is noted within the left upper chest which is most likely due to granuloma. Blunting of the right lateral costophrenic angle is seen which appears chronic. Vague callus is felt to be present within the anterior fifth and sixth ribs most likely due to previous fractures with callus. Lungs are hyperinflated on the lateral view compatible with emphysematous change. Surgical clips are seen prior cholecystectomy. Mild scoliosis is seen. Stable left clavicle fracture is noted. Impression: 1. Callus within at least 2 anterior rib fractures (5th and 6th) within the right chest. Findings are felt compatible with healing fractures. These findings are an interval change from previous study. 2. Emphysematous change and other incidental findings. 3. Nothing acute is otherwise seen. Diagnostic code #3
== END 2018-11-22 23:12 | disposition home or self-care (01) ==
LOC: JD.ED 18:55
DX: F45.8 Other somatoform disorders (principal); R94.6 Abnormal results of thyroid function studies; E03.9 Hypothyroidism, unspecified; F41.9 Anxiety disorder, unspecified; F32.9 Major depressive disorder, single episode, unspecified; M19.90 Unspecified osteoarthritis, unspecified site; F17.210 Nicotine dependence, cigarettes, uncomplicated; Z79.899 Other long term (current) drug therapy; Z90.49 Acquired absence of other specified parts of digestive tract; Z90.710 Acquired absence of both cervix and uterus; Z90.722 Acquired absence of ovaries, bilateral; Z96.643 Presence of artificial hip joint, bilateral
CPT/HCPCS: 36415; 36600; 71046; 71046-26; 80053; 81001; 82803; 83735; 84443; 84484; 85007; 85027; 85379; 93005; 93010; 96361; 96374; 96375; 96376; 99283; 99285-25

== ENCOUNTER 2019-03-05 16:38 | Inpatient (IN) | payer MEDICAID ==
[2019-03-05] MEDS ORDERED: Albuterol/Ipratropium 3.0-0.5 MG/3 ML Neb Soln NEB ONE ×2 (16:55→20:12)
--- NOTE | 2019-03-05 16:55 | EDM.PDOC ---
ED HPI GENERAL MEDICAL PROBLEM - General Chief Complaint: Respiratory Problem Stated Complaint: SOB Time Seen by Provider: 03/05/19 16:39 Source of Information: Reports: Patient History Limitations: Reports: No Limitations - History of Present Illness INITIAL COMMENTS - FREE TEXT/NARRATIVE: 58-year-old female presents to the ED with gradually worsening shortness of breath over the last 48 hours. States her chest grandkids were sick with an upper respiratory tract infection last week. She states on Wednesday night she started to feel scratchy throat and yesterday developed a very productive sounding cough. Today with walking she's noted that she is very dyspneic on minimal exertion. She can't go up a flight of stairs which she normally can go without any problem. States cough is productive but she can hear herself wheezing as well. She is a former smoker she quit completely about a year ago. She quit from about 2002 until 2009 when she started again. All together she has a [id number]-mhof-[id number] history. She has never been told that she has COPD. O2 sats when the triage nurse assessed her were only 70% in room air. Patient was placed initially on 4 L/m by nasal cannula and achieved sats only 88%. On 5 L she is up to 96-98%. Onset: Gradual Onset Date: 03/03/19 (Started with scratchy throat on Wednesday and then progressed into a productive cough yesterday.) Duration: Day(s): (Gradually worsening dyspnea over the last 2 days but particularly over the last 12-24 hours.) Location: Reports: Chest (Dyspnea on minimal exertion. No orthopnea.) Quality: Reports: Other Severity: Severe (Dyspnea. Severe on minimal exertion such as trying to go up a flight of stairs.) Improves with: Reports: Rest Worsens with: Reports: Other Context: Reports: Other (She felt she had picked up a cold symptoms from her grandkids who've been ill for the last week.). Denies: Activity (Worse with exertion such as trying to walk up a flight of stairs.), Exercise, Lifting, Sick Contact, Trauma Associated Symptoms: Reports: Cough, cough w sputum, Fever/Chills, Loss of Appetite, Malaise, Shortness of Breath. Denies: Confusion, Chest Pain, Diaphoresis (She is febrile on exam. She wasn't aware of this.), Headaches, Nausea/Vomiting, Rash, Seizure, Syncope, Weakness Treatments TIRE TRIMMER HAND: Reports: Other (see below) (None.) Chest Pain Score (Numeric/FACES): 7 - Related Data Allergies Allergy/AdvReac Type Severity Reaction Status Date / Time No Known Allergies Allergy Verified 11/22/18 19:00 Home Meds: Home Meds Levothyroxine [Synthroid] 100 mcg PO DAILY 02/25/18 [History] buPROPion [Wellbutrin SR] 150 mg PO BID 02/25/18 [History] Estradiol 0.5 mg PO DAILY 09/26/18 [History] Past Medical History HEENT History: Reports: None Cardiovascular History: Reports: None Respiratory History: Reports: None, Bronchitis, Recurrent, Other (See Below) ( Patient has had pneumonia twice in the past.) Gastrointestinal History: Reports: None Genitourinary History: Reports: None TIRE RETREADER History: Reports: None Musculoskeletal History: Reports: Osteoarthritis Neurological History: Reports: None Psychiatric History: Reports: Anxiety, Depression Endocrine/Metabolic History: Reports: Hypothyroidism Hematologic History: Reports: None Immunologic History: Reports: None Oncologic (Cancer) History: Reports: None Dermatologic History: Reports: None - Infectious Disease History Infectious Disease History: Reports: None - Past Surgical History HEENT Surgical History: Reports: Oral Surgery (wisdom teeth extraction) Respiratory Surgical History: Reports: Other (See Below) (Right VATS for empyema ) GI Surgical History: Reports: Cholecystectomy (1970s) Female Surgical History: Reports: Hysterectomy (complete), Salpingo- Oophorectomy (bilateral) Musculoskeletal Surgical History: Reports: Hip Replacement (bilateral), Other ( See Below) (Left ankle surgery) Social & Family History - Family History Family Medical History: Noncontributory - Tobacco Use Smoking Status *Q: Former Smoker (Patient has a 88-[id number]-nomc history. She quit smoking between 2002 until 2009 when she started back up again. She quit a year ago for sure hip replacement.) Tobacco Use Within Last Twelve Months: Cigarettes - Caffeine Use Caffeine Use: Reports: Coffee, Tea - Living Situation & Occupation Living situation: Reports: , with Family (Daughter) Occupation: Unemployed ED ROS GENERAL - Review of Systems Review Of Systems: See Below Constitutional: Reports: Fever, Malaise, Weakness, Fatigue, Decreased Appetite. Denies: Chills (She does feel warm to palpation. Nurses are cartilages 37.7.) HEENT: Reports: Rhinitis. Denies: Throat Pain (Minimal rhinitis.), Throat Swelling Respiratory: Reports: Shortness of Breath, Wheezing, Cough, Sputum. Denies: Pleuritic Chest Pain, Hemoptysis Cardiovascular: Reports: Blood Pressure Problem, Dyspnea on Exertion. Denies: Chest Pain, Claudication, Edema, Lightheadedness, Orthopnea, Palpitations Endocrine: Reports: Fatigue (Severe the last 24 hours.) GI/Abdominal: Reports: Decreased Appetite : Reports: No Symptoms Musculoskeletal: Reports: Back Pain, Joint Pain (Knees and hips and low back at times.) Skin: Reports: No Symptoms Neurological: Reports: No Symptoms Psychiatric: Reports: Depression Hematologic/Lymphatic: Reports: No Symptoms Immunologic: Reports: No Symptoms ED EXAM, GENERAL - Physical Exam Exam: See Below Exam Limited By: No Limitations General Appearance: Alert, WD/WN, Moderate Distress, Other (Moderate respiratory distress. Vital signs showed temperature of 36.5 although I was told was 37.7 in the room. She does feel warm to palpation. Pulse 100 and sinus 2017 with sats of only 78% upon arrival. Placed on 4 L and then increased to 5 L /m to achieve sats of 96%. BP markedly elevated initially at 180 08/29/12. Since coming down to 149/108) Eye Exam: Bilateral Eye: Normal Inspection Ears: Normal TMs Throat/Mouth: Normal Inspection, Normal Lips, Normal Teeth, Normal Oropharynx, Other Head: Atraumatic, Normocephalic (Very slight erythema.) Neck: Normal Inspection, Supple, Non-Tender, Full Range of Motion. No: Lymphadenopathy (L), Lymphadenopathy (R) Respiratory/Chest: Lungs Clear, Normal Breath Sounds, Chest Non-Tender, Decreased Breath Sounds (Mildly decreased breath sounds to both lower lung akins), Wheezing, Other. No: Rhonchi (Bilateral expiratory wheeze on forced expiration.) Cardiovascular: Normal Peripheral Pulses (Productive sounding cough.), Regular Rate, Rhythm, No Edema, No Gallop, No Murmur, No Rub Peripheral Pulses: 2+: Posterior Tibial (L), Posterior Tibial (R), Dorsalis Pedis (L), Dorsalis Pedis (R) GI/Abdominal: Normal Bowel Sounds, Soft, Non-Tender, No Organomegaly, No Abnormal Bruit, No Mass, Pelvis Stable, Other (No significant aerophagia.) Back Exam: Normal Inspection, Full Range of Motion. No: CVA Tenderness (L), CVA Tenderness (R) Extremities: Normal Inspection, Normal Range of Motion, Non-Tender, No Pedal Edema, Other (No clinical evidence of DVT.) Neurological: Alert, Oriented, CN II-XII Intact, Normal Cognition Psychiatric: Anxious Skin Exam: Warm, Dry, Intact, Normal Color, No Rash, Other (Again she does feel warm to palpation and appears to low-grade fever.) EKG INTERPRETATION EKG Date: 03/05/19 Time: 17:01 Rhythm: NSR Rate (Beats/Min): 95 [place]: Normal P-Wave: Present QRS: Other (Q-wave in V1 and near Q-wave in V2. Cannot rule out old anteroseptal myocardial infarction. Borderline right axis deviation at 85.) ST-T: Other (Mild diffuse repolarization abnormality.) QT: Normal EKG Interpretation Comments: Borderline ECG. Course - Vital Signs Last Recorded V/S: Last Vital Signs Temp 36.5 C 03/05/19 16:46 Pulse 100 03/05/19 16:46 Resp 17 03/05/19 16:46 BP 184/113 H 03/05/19 16:46 Pulse Ox 98 03/05/19 16:55 - Orders/Labs/Meds Orders: Active Orders 24 hr Category Date Time Status EKG Documentation Completion [RC] STAT Care 03/05/19 16:51 Active EKG Documentation Completion [RC] STAT Care 03/05/19 16:52 Inactive Influenza Vaccine Charge [RC] .DISCHARGE Care 03/05/19 16:57 Active Influenza Vaccine Charge [RC] .DISCHARGE Care 03/05/19 17:04 Active Oxygen Therapy [RC] ASDIRECTED Care 03/05/19 16:51 Active RT Aerosol Therapy [RC] ASDIRECTED Care 03/05/19 16:55 Active RT Aerosol Therapy [RC] ASDIRECTED Care 03/05/19 20:13 Active Chest 1V Frontal [CR] Stat Exams 03/05/19 16:52 Taken CULTURE BLOOD [BC] Stat Lab 03/05/19 17:18 Received CULTURE BLOOD [BC] Stat Lab 03/05/19 17:33 Received Dextrose 5%-0.9% NaCl [Dextrose 5%-Normal Saline] 1,000 Med 03/05/19 17:00 Active ml IV ASDIRECTED Sodium Chloride 0.9% [Normal Saline] 100 ml Med 03/05/19 19:00 Active IV ASDIRECTED Sodium Chloride 0.9% [Saline Flush] Med 03/05/19 18:53 Active 10 ml FLUSH ONETIME PRN Blood Culture x2 Reflex Set [OM.PC] Stat Oth 03/05/19 16:53 Ordered Medication Orders Dextrose/Sodium Chloride (Dextrose 5%-Normal Saline) 1,000 mls @ 150 mls/hr IV ASDIRECTED ARMANDO Last Admin: 03/05/19 17:21 Dose: 150 mls/hr Sodium Chloride (Normal Saline) 100 mls @ 75 mls/hr IV ASDIRECTED ARMANDO Last Admin: 03/05/19 19:34 Dose: 75 mls/hr Sodium Chloride (Saline Flush) 10 ml FLUSH ONETIME PRN PRN Reason: IV FLUSH Last Admin: 03/05/19 19:34 Dose: 10 ml Labs: Laboratory Tests 03/05/19 03/05/19 03/05/19 Range/Units 16:55 16:55 16:55 WBC 5.85 (3.98-10.04) K/mm3 RBC 3.91 L (3.98-5.22) M/mm3 Hgb 13.0 (11.2-15.7) gm/dl Hct 38.3 (34.1-44.9) % MCV 98.0 H (79.4-94.8) fl MCH 33.2 H (25.6-32.2) pg MCHC 33.9 (32.2-35.5) g/dl RDW Std Deviation 46.7 H (36.4-46.3) fL Plt Count 352 (182-369) K/mm3 MPV 9.4 (9.4-12.3) fl Neutrophils % (Manual) 80 H (40-60) % Band Neutrophils % 0 (0-10) % Lymphocytes % (Manual) 18 L (20-40) % Atypical Lymphs % 0 % Monocytes % (Manual) 0 L (2-10) % Eosinophils % (Manual) 2 (0.7-5.8) % Basophils % (Manual) 0 L (0.1-1.2) Platelet Estimate Adequate RBC Morph Comment Normal PT (9.7-12.0) SECONDS INR APTT (22-31) SECONDS D-Dimer, Quantitative (0.19-0.50) mg/L Puncture Site ABG pH (7.35-7.45) ABG pCO2 (35.0-45.0) mmHg ABG pO2 (80.0-100.0) mmHg ABG HCO3 (22.0-26.0) meq/L ABG O2 Saturation (96.0-97.0) % ABG Base Excess (-2-2.0) Dao Test A-a Gradient mmHg O2 Delivery Device Oxygen Flow Rate FiO2 (21.00-100.00) % Sodium 137 (136-145) mEq/L Potassium 3.9 (3.5-5.1) mEq/L Chloride 102 (98-107) mEq/L Carbon Dioxide 27 (21-32) mEq/L Anion Gap 11.9 (5-15) BUN 9 (7-18) mg/dL Creatinine 0.8 (0.55-1.02) mg/dL Est Cr Clr Drug Dosing 61.86 mL/min Estimated GFR (MDRD) > 60 (>60) mL/min BUN/Creatinine Ratio 11.3 L (14-18) Glucose 106 (74-106) mg/dL Lactic Acid 1.0 (0.4-2.0) mmol/L Calcium 9.0 (8.5-10.1) mg/dL Magnesium 1.8 (1.8-2.4) mg/dl Total Bilirubin 0.2 (0.2-1.0) mg/dL AST 20 (15-37) U/L ALT 27 (14-59) U/L Alkaline Phosphatase 101 (46-116) U/L Troponin I < 0.017 (0.00-0.056) ng/mL C-Reactive Protein 1.0 (<1.0) mg/dL NT-Pro-B Natriuret Pep (0-125) pg/mL Total Protein 7.8 (6.4-8.2) g/dl Albumin 3.4 (3.4-5.0) g/dl Globulin 4.4 gm/dL Albumin/Globulin Ratio 0.8 L (1-2) Urine Color (Yellow) Urine Appearance (Clear) Urine pH (5.0-8.0) Ur Specific [place] (1.005-1.030) Urine Protein (Negative) Urine Glucose (UA) (Negative) Urine Ketones (Negative) Urine Occult Blood (Negative) Urine Nitrite (Negative) Urine Bilirubin (Negative) Urine Urobilinogen (0.2-1.0) Ur Leukocyte Esterase (Negative) Urine RBC (0-5) /hpf Urine WBC (0-5) /hpf Ur Squamous Epith Cells (0-5) /hpf Amorphous Sediment (NOT SEEN) /hpf Urine Bacteria (FEW) /hpf Urine Mucus (FEW) /hpf 03/05/19 03/05/19 03/05/19 Range/Units 16:55 16:55 17:01 WBC (3.98-10.04) K/mm3 RBC (3.98-5.22) M/mm3 Hgb (11.2-15.7) gm/dl Hct (34.1-44.9) % MCV (79.4-94.8) fl MCH (25.6-32.2) pg MCHC (32.2-35.5) g/dl RDW Std Deviation (36.4-46.3) fL Plt Count (182-369) K/mm3 MPV (9.4-12.3) fl Neutrophils % (Manual) (40-60) % Band Neutrophils % (0-10) % Lymphocytes % (Manual) (20-40) % Atypical Lymphs % % Monocytes % (Manual) (2-10) % Eosinophils % (Manual) (0.7-5.8) % Basophils % (Manual) (0.1-1.2) Platelet Estimate RBC Morph Comment PT 9.6 L (9.7-12.0) SECONDS INR < 0.93 APTT 26 (22-31) SECONDS D-Dimer, Quantitative 1.18 H (0.19-0.50) mg/L Puncture Site Rt radial ABG pH 7.38 (7.35-7.45) ABG pCO2 42.5 (35.0-45.0) mmHg ABG pO2 96.0 (80.0-100.0) mmHg ABG HCO3 24.7 (22.0-26.0) meq/L ABG O2 Saturation 96.3 (96.0-97.0) % ABG Base Excess 0.1 (-2-2.0) Dao Test Positive A-a Gradient 137 mmHg O2 Delivery Device Nasal cannula Oxygen Flow Rate 5.0 FiO2 50.00 (21.00-100.00) % Sodium (136-145) mEq/L Potassium (3.5-5.1) mEq/L Chloride (98-107) mEq/L Carbon Dioxide (21-32) mEq/L Anion Gap (5-15) BUN (7-18) mg/dL Creatinine (0.55-1.02) mg/dL Est Cr Clr Drug Dosing mL/min Estimated GFR (MDRD) (>60) mL/min BUN/Creatinine Ratio (14-18) Glucose (74-106) mg/dL Lactic Acid (0.4-2.0) mmol/L Calcium (8.5-10.1) mg/dL Magnesium (1.8-2.4) mg/dl Total Bilirubin (0.2-1.0) mg/dL AST (15-37) U/L ALT (14-59) U/L Alkaline Phosphatase (46-116) U/L Troponin I (0.00-0.056) ng/mL C-Reactive Protein (<1.0) mg/dL NT-Pro-B Natriuret Pep 181 H (0-125) pg/mL Total Protein (6.4-8.2) g/dl Albumin (3.4-5.0) g/dl Globulin gm/dL Albumin/Globulin Ratio (1-2) Urine Color (Yellow) Urine Appearance (Clear) Urine pH (5.0-8.0) Ur Specific [place] (1.005-1.030) Urine Protein (Negative) Urine Glucose (UA) (Negative) Urine Ketones (Negative) Urine Occult Blood (Negative) Urine Nitrite (Negative) Urine Bilirubin (Negative) Urine Urobilinogen (0.2-1.0) Ur Leukocyte Esterase (Negative) Urine RBC (0-5) /hpf Urine WBC (0-5) /hpf Ur Squamous Epith Cells (0-5) /hpf Amorphous Sediment (NOT SEEN) /hpf Urine Bacteria (FEW) /hpf Urine Mucus (FEW) /hpf 03/05/19 Range/Units 18:35 WBC (3.98-10.04) K/mm3 RBC (3.98-5.22) M/mm3 Hgb (11.2-15.7) gm/dl Hct (34.1-44.9) % MCV (79.4-94.8) fl MCH (25.6-32.2) pg MCHC (32.2-35.5) g/dl RDW Std Deviation (36.4-46.3) fL Plt Count (182-369) K/mm3 MPV (9.4-12.3) fl Neutrophils % (Manual) (40-60) % Band Neutrophils % (0-10) % Lymphocytes % (Manual) (20-40) % Atypical Lymphs % % Monocytes % (Manual) (2-10) % Eosinophils % (Manual) (0.7-5.8) % Basophils % (Manual) (0.1-1.2) Platelet Estimate RBC Morph Comment PT (9.7-12.0) SECONDS INR APTT (22-31) SECONDS D-Dimer, Quantitative (0.19-0.50) mg/L Puncture Site ABG pH (7.35-7.45) ABG pCO2 (35.0-45.0) mmHg ABG pO2 (80.0-100.0) mmHg ABG HCO3 (22.0-26.0) meq/L ABG O2 Saturation (96.0-97.0) % ABG Base Excess (-2-2.0) Dao Test A-a Gradient mmHg O2 Delivery Device Oxygen Flow Rate FiO2 (21.00-100.00) % Sodium (136-145) mEq/L Potassium (3.5-5.1) mEq/L Chloride (98-107) mEq/L Carbon Dioxide (21-32) mEq/L Anion Gap (5-15) BUN (7-18) mg/dL Creatinine (0.55-1.02) mg/dL Est Cr Clr Drug Dosing mL/min Estimated GFR (MDRD) (>60) mL/min BUN/Creatinine Ratio (14-18) Glucose (74-106) mg/dL Lactic Acid (0.4-2.0) mmol/L Calcium (8.5-10.1) mg/dL Magnesium (1.8-2.4) mg/dl Total Bilirubin (0.2-1.0) mg/dL AST (15-37) U/L ALT (14-59) U/L Alkaline Phosphatase (46-116) U/L Troponin I (0.00-0.056) ng/mL C-Reactive Protein (<1.0) mg/dL NT-Pro-B Natriuret Pep (0-125) pg/mL Total Protein (6.4-8.2) g/dl Albumin (3.4-5.0) g/dl Globulin gm/dL Albumin/Globulin Ratio (1-2) Urine Color Yellow (Yellow) Urine Appearance Clear (Clear) Urine pH 6.0 (5.0-8.0) Ur Specific [place] 1.020 (1.005-1.030) Urine Protein Negative (Negative) Urine Glucose (UA) Negative (Negative) Urine Ketones Negative (Negative) Urine Occult Blood Negative (Negative) Urine Nitrite Negative (Negative) Urine Bilirubin Negative (Negative) Urine Urobilinogen 0.2 (0.2-1.0) Ur Leukocyte Esterase Negative (Negative) Urine RBC 0-5 (0-5) /hpf Urine WBC Not seen (0-5) /hpf Ur Squamous Epith Cells Not seen (0-5) /hpf Amorphous Sediment Rare H (NOT SEEN) /hpf Urine Bacteria Rare (FEW) /hpf Urine Mucus Moderate H (FEW) /hpf Meds: Medications Generic Name Dose Route Start Last Admin Trade Name Freq PRN Reason Stop Dose Admin Dextrose/Sodium Chloride 1,000 mls @ 150 mls/hr 03/05/19 17:00 03/05/19 17:21 Dextrose 5%-Normal Saline IV 150 mls/hr ASDIRECTED ARMANDO Administration Sodium Chloride 100 mls @ 75 mls/hr 03/05/19 19:00 03/05/19 19:34 Normal Saline IV 75 mls/hr ASDIRECTED ARMANDO Administration Sodium Chloride 10 ml 03/05/19 18:53 03/05/19 19:34 Saline Flush FLUSH 10 ml ONETIME PRN Administration IV FLUSH Discontinued Medications Generic Name Dose Route Start Last Admin Trade Name Freq PRN Reason Stop Dose Admin Albuterol/Ipratropium 3 ml 03/05/19 16:55 03/05/19 17:17 Duoneb 3.0-0.5 Mg/3 Ml NEB 03/05/19 16:56 3 ml ONETIME ONE Administration Albuterol/Ipratropium 3 ml 03/05/19 20:12 03/05/19 20:36 Duoneb 3.0-0.5 Mg/3 Ml NEB 03/05/19 20:13 3 ml ONETIME ONE Administration Influenza Virus Vaccine 1 each 03/05/19 16:56 Pharmacy To Dose - Influenza Vaccine IM 03/05/19 16:57 ONETIME ONE Influenza Virus Vaccine 60 mcg 03/05/19 17:00 Fluzone Quad [id number] Syringe IM 03/05/19 17:01 .ONCE ONE Iopamidol 100 ml 03/05/19 18:53 03/05/19 19:34 Isovue-370 (76%) IVPUSH 03/05/19 18:54 100 ml ONETIME ONE Administration Methylprednisolone Sodium Succinate 125 mg 03/05/19 20:13 Solu-Medrol IVPUSH 03/05/19 20:14 ONETIME ONE - Radiology Interpretation Free Text/Narrative:: 58-year-old female presents to the ED with marked or fairly sudden dyspnea on minimal exertion over the last 48 hours. Her grandchildren have been sick with upper/tract infection and Wednesday night she started to feel her throat get a little ticklish and burning. Yesterday she developed a cough and even more productive cough today. She appreciated marked dyspnea on minimal exertion. She could be down a flight of stairs but has to stop alf up the basement stairs to get her breath. On arrival here her O2 sats are only 78% on room air. Penetration appears to have a low-grade fever. Her oxygen at 5 L/m by nasal specks to get her O2 sats up to 96%. She does have bilateral mild expiratory wheezes and a few rhonchi in both lung bases. Clinically I suspect she has COPD although not diagnosed with this. She is a [id number] history of smoking but quit well over a year ago. Quit in between 2002 and 2009 as well. Plan she will remain on the oxygen at this time. We'll have ABGs done. I note that one of her medications as estradiol waking her at risk for a pulmonary embolism. She will have an ECG chest x-ray labs including Ceftin septic workup with blood cultures 2 and a lactic acid. D-dimer as part of her workup as well. Be given a DuoNeb treatment IV will be D5 normal saline at 200 mils per hour. - Re-Assessments/Exams Free Text/Narrative Re-Assessment/Exam: 03/05/19 18:15 White count is pending. It's 80% neutrophils. PT is 9.6 with an INR of 0.93. PTT is 26. D-dimer is elevated at 1.18. ABGs reveal a pH of 7.38. PCO2 is 42.5. PO2 is 96. Bicarbonate is 24.7. Base excess is 0.1. This is on oxygen at 5 L/m by nasal cannula. Sodium is 137 with potassium of 3.9 chloride is 128 bicarbonate 27. Anion gap is 11.9. BUN is 9 with a creatinine of 0.8. GFR is greater than 60. Glucose is 106 with a lactic acid of 1.0. Calcium is 9.0. Magnesium 1.8. Total bilirubin 0.2. Liver function otherwise normal. Troponin I is less than 0.017. C-reactive protein 1.0. BNP is 181 mildly elevated. Total protein is 7.8 with albumin fraction of 3.4. Urinalysis is normal. She will require CT pulmonary and she jammed rule out DVT. Blood pressure is well maintained at 135/92. Sats are 99% on 5 L. Heart rate is 92. Chest x-ray done portably reveals normal cardiac silhouette with a tortuous thoracic aorta. There does appear to be diffuse vascular congestion. There is no pneumonic consolidation. 03/05/19 18:25 Patient advised of the findings. She feels much better on the 5 L of oxygen maintaining O2 sats of 97 and 98% on room air. She feels better after the breathing treatment as well. Pulmonary embolism needs to be ruled out with an elevated d-dimer in the sudden onset of her severe dyspnea. 03/05/19 20:38: CT pulmonary angiogram of the chest was read by the radiologist as normal. However on series 6 image #64 I suspect that there is a subsegmental vessel that is partially occluded by thrombus. This is anterior mid left lung. I have discussed the case with Dr. Aranda and she will see her in the ED with a view to admission to the hospital because she is hypoxic. We have turned her down to 3 L/m and she is satting at 95% marked improvement compared to initial evaluation. Diagnosis is exacerbation of COPD however the patient has never had a diagnosis of formal COPD be made. Patient will receive another DuoNeb treatment and first dose of steroid ice on Medrol 125 mg IV. Departure - Departure Time of Disposition: 20:43 Disposition: Admitted As Inpatient 64 Condition: Fair Clinical Impression: COPD with exacerbation, Hypoxemia, Elevated brain natriuretic peptide (BNP) level - Discharge Information Referrals: PCP,Not In Area [Primary Care Provider] - Forms: ED Department Discharge - My Orders Last 24 Hours: My Active Orders 03/05/19 16:51 EKG Documentation Completion [RC] STAT Oxygen Therapy [RC] ASDIRECTED 03/05/19 16:52 EKG Documentation Completion [RC] STAT Chest 1V Frontal [CR] Stat 03/05/19 16:53 Blood Culture x2 Reflex Set [OM.PC] Stat 03/05/19 16:55 RT Aerosol Therapy [RC] ASDIRECTED 03/05/19 16:57 Influenza Vaccine Charge [RC] .DISCHARGE 03/05/19 17:00 Dextrose 5%-0.9% NaCl [Dextrose 5%-Normal Saline] 1,000 ml IV ASDIRECTED 03/05/19 17:04 Influenza Vaccine Charge [RC] .DISCHARGE 03/05/19 17:18 CULTURE BLOOD [BC] Stat 03/05/19 17:33 CULTURE BLOOD [BC] Stat 03/05/19 18:53 Sodium Chloride 0.9% [Saline Flush] 10 ml FLUSH ONETIME PRN 03/05/19 19:00 Sodium Chloride 0.9% [Normal Saline] 100 ml IV ASDIRECTED 03/05/19 20:13 RT Aerosol Therapy [RC] ASDIRECTED - Assessment/Plan Last 24 Hours: My Active Orders 03/05/19 16:51 EKG Documentation Completion [RC] STAT Oxygen Therapy [RC] ASDIRECTED 03/05/19 16:52 EKG Documentation Completion [RC] STAT Chest 1V Frontal [CR] Stat 03/05/19 16:53 Blood Culture x2 Reflex Set [OM.PC] Stat 03/05/19 16:55 RT Aerosol Therapy [RC] ASDIRECTED 03/05/19 16:57 Influenza Vaccine Charge [RC] .DISCHARGE 03/05/19 17:00 Dextrose 5%-0.9% NaCl [Dextrose 5%-Normal Saline] 1,000 ml IV ASDIRECTED 03/05/19 17:04 Influenza Vaccine Charge [RC] .DISCHARGE 03/05/19 17:18 CULTURE BLOOD [BC] Stat 03/05/19 17:33 CULTURE BLOOD [BC] Stat 03/05/19 18:53 Sodium Chloride 0.9% [Saline Flush] 10 ml FLUSH ONETIME PRN 03/05/19 19:00 Sodium Chloride 0.9% [Normal Saline] 100 ml IV ASDIRECTED 03/05/19 20:13 RT Aerosol Therapy [RC] ASDIRECTED
[2019-03-05] MEDS ORDERED: FLU Vacc QS2019-20(6MOS+)/PF 60 MCG/0.5 ML SYRINGE IM ONE (17:00)
[2019-03-05] MEDS ORDERED: Dextrose 5%-0.9% NaCl 1,000 ML IV SCH (17:00)
[2019-03-05] MEDS ORDERED: Sodium Chloride 0.9% 10 ML Syringe FLUSH PRN ×2 (18:53→21:12)
[2019-03-05] MEDS ORDERED: Iopamidol 755 Mg/ML 100 ML Bottle IVPUSH ONE (18:53)
[2019-03-05] MEDS ORDERED: Sodium Chloride 0.9% 100 ML IV SCH (19:00)
--- NOTE | 2019-03-05 19:57 | CT ---
CT chest Technique: Multiple axial sections through the chest are obtained. Intravenous contrast was utilized. Study has been performed as a pulmonary angiogram protocol. Comparison: No prior chest CT is available. Findings: Pulmonary arteries are well opacified. No filling defects are seen to indicate pulmonary embolism. Mediastinum and hilar region show no adenopathy or mass. Slight ectasia of the ascending aorta is noted. No acute parenchymal change is seen on lung window settings. Calcified granuloma is noted within the left upper chest. Lungs otherwise show no additional nodule or mass. No pleural effusions are seen. Bone window settings were reviewed which shows slight degenerative change scattered within the thoracic spine. No acute osseous abnormality is appreciated. Impression: 1. Findings which are believed to be incidental as noted above. 2. No pulmonary embolism is seen. 3. Nothing acute is appreciated on CT study of the chest. Diagnostic code #2
[2019-03-05] MEDS ORDERED: methylPREDNISolone Sodium Succinate 125 MG/2 ML SDV IVPUSH ONE (20:13)
[2019-03-05] MEDS ORDERED: Budesonide 0.5 MG/2 ML Neb Susp NEB ONE (20:47)
--- NOTE | 2019-03-05 20:57 | PCM.HP.2 ---
H&P History of Present Illness - General Date of Service: 03/05/19 - History of Present Illness Initial Comments - Free Text/Narative: This is a 58 year-old female with past medical history of hypothyroidism and anxiety who comes to the ED complaining of worsening shortness of breath for 2 days. As per patient she started having flue like symptoms on Wednesday mainly coughing, productive of light yellow sputum. Yesterday he coughing spells seemed to make her run out of breath but this is gone now. Associated with generalized body aches, OWUSU, chest tightness and coughing spells. She denies any fevers, headaches, palpitations, dizziness, chest pain, chills, nausea, vomiting or diarrhea, orthopnea, PND. Sick contacts are her 2 toddler grandkids that had flu-like illness 1 week ago. Took theraflu yesterday without any changes. Today she took meloxicam for inflammation. No flu shot this season 3-4 months ago was evaluated and treated for pleurisy Smoked 1ppw for 30 years Chest Pain Score (Numeric/FACES): 7 - Related Data Allergies/Adverse Reactions: Allergies Allergy/AdvReac Type Severity Reaction Status Date / Time No Known Allergies Allergy Verified 11/22/18 19:00 Home Medications: Home Meds Levothyroxine [Synthroid] 100 mcg PO DAILY 02/25/18 [History] buPROPion [Wellbutrin SR] 150 mg PO BID 02/25/18 [History] Estradiol 0.5 mg PO DAILY 09/26/18 [History] Past Medical History HEENT History: Reports: None Cardiovascular History: Reports: None Respiratory History: Reports: None, Bronchitis, Recurrent, Other (See Below) ( Patient has had pneumonia twice in the past.) Gastrointestinal History: Reports: None Genitourinary History: Reports: None 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: Reports: None Musculoskeletal History: Reports: Osteoarthritis Neurological History: Reports: None Psychiatric History: Reports: Anxiety, Depression Endocrine/Metabolic History: Reports: Hypothyroidism Hematologic History: Reports: None Immunologic History: Reports: None Oncologic (Cancer) History: Reports: None Dermatologic History: Reports: None - Infectious Disease History Infectious Disease History: Reports: None - Past Surgical History HEENT Surgical History: Reports: Oral Surgery (wisdom teeth extraction) Respiratory Surgical History: Reports: Other (See Below) (Right VATS for empyema ) GI Surgical History: Reports: Cholecystectomy (1970s) Female Surgical History: Reports: Hysterectomy (complete), Salpingo- Oophorectomy (bilateral) Musculoskeletal Surgical History: Reports: Hip Replacement (bilateral), Other ( See Below) (Left ankle surgery) Social & Family History - Family History Family Medical History: Noncontributory - Tobacco Use Smoking Status *Q: Former Smoker (Patient has a [id number] history. She quit smoking between 2002 until 2009 when she started back up again. She quit a year ago for sure hip replacement.) Used Tobacco, but Quit: Yes Month/Year Tobacco Last Used: 1 yr - Caffeine Use Caffeine Use: Reports: Coffee, Tea - Recreational Drug Use Recreational Drug Use: No - Living Situation & Occupation Living situation: Reports: , with Family (Daughter) Occupation: Unemployed H&P Review of Systems - Review of Systems: Review Of Systems: See Below General: Reports: Malaise, Weakness, Fatigue. Denies: Fever, Chills, Night Sweats, Diaphoresis, Decreased Appetite HEENT: Denies: Ear Pain, Eye Pain, Headaches, Post Nasal Drip, Sinus Congestion , Sore Throat, Visual Changes Pulmonary: Reports: Shortness of Breath, Wheezing, Cough, Sputum. Denies: Hemoptysis Cardiovascular: Reports: Dyspnea on Exertion. Denies: Chest Pain, Palpitations , Orthopnea, Edema, Lightheadedness, Syncope Gastrointestinal: Denies: Abdominal Pain, Anorexia, Black Stool, Bloody Stool, Constipation, Diarrhea, Decreased Appetite, Difficulty Swallowing Genitourinary: Denies: Dysuria, Frequency, Burning Musculoskeletal: Denies: Neck Pain, Shoulder Pain, Muscle Pain, Muscle Stiffness Skin: Denies: Cyanosis, Jaundice, Dryness, Bruising Psychiatric: Denies: Confusion, Depression, Anxiety Exam - Vital Signs Vital Signs: Last Vital Signs Temp 36.5 C 03/05/19 16:46 Pulse 100 03/05/19 16:46 Resp 17 03/05/19 16:46 BP 184/113 H 03/05/19 16:46 Pulse Ox 100 03/05/19 20:41 Weight: 72.575 kg - Exam General: Alert, Oriented, Cooperative, Moderate Distress HEENT: Conjunctiva Clear, EOMI, Mucosa Moist & [place], Nares Patent, Normal Nasal Septum, Posterior Pharynx Clear, Pupils Equal Neck: Supple, Trachea Midline. No: Lymphadenopathy Lungs: Decreased Breath Sounds, Wheezing Cardiovascular: Regular Rate, Regular Rhythm. No: Systolic Murmur, Diastolic Murmur, Rubs GI/Abdominal Exam: Normal Bowel Sounds, Soft, Non-Tender, No Organomegaly, No Distention. No: Guarding, Rebound Extremities: Normal Inspection, Normal Range of Motion, Normal Capillary Refill Skin: Warm, Dry, Intact Neurological: Cranial Nerves Intact, Normal Gait, Normal Speech Psychiatric: Alert - Patient Data Lab Results Last 24 hrs: Laboratory Results - last 24 hr 03/05/19 03/05/19 03/05/19 Range/Units 16:55 16:55 16:55 WBC 5.85 (3.98-10.04) K/mm3 RBC 3.91 L (3.98-5.22) M/mm3 Hgb 13.0 (11.2-15.7) gm/dl Hct 38.3 (34.1-44.9) % MCV 98.0 H (79.4-94.8) fl MCH 33.2 H (25.6-32.2) pg MCHC 33.9 (32.2-35.5) g/dl RDW Std Deviation 46.7 H (36.4-46.3) fL Plt Count 352 (182-369) K/mm3 MPV 9.4 (9.4-12.3) fl Neutrophils % (Manual) 80 H (40-60) % Band Neutrophils % 0 (0-10) % Lymphocytes % (Manual) 18 L (20-40) % Atypical Lymphs % 0 % Monocytes % (Manual) 0 L (2-10) % Eosinophils % (Manual) 2 (0.7-5.8) % Basophils % (Manual) 0 L (0.1-1.2) Platelet Estimate Adequate RBC Morph Comment Normal PT (9.7-12.0) SECONDS INR APTT (22-31) SECONDS D-Dimer, Quantitative (0.19-0.50) mg/L Puncture Site ABG pH (7.35-7.45) ABG pCO2 (35.0-45.0) mmHg ABG pO2 (80.0-100.0) mmHg ABG HCO3 (22.0-26.0) meq/L ABG O2 Saturation (96.0-97.0) % ABG Base Excess (-2-2.0) Dao Test A-a Gradient mmHg O2 Delivery Device Oxygen Flow Rate FiO2 (21.00-100.00) % Sodium 137 (136-145) mEq/L Potassium 3.9 (3.5-5.1) mEq/L Chloride 102 (98-107) mEq/L Carbon Dioxide 27 (21-32) mEq/L Anion Gap 11.9 (5-15) BUN 9 (7-18) mg/dL Creatinine 0.8 (0.55-1.02) mg/dL Est Cr Clr Drug Dosing 61.86 mL/min Estimated GFR (MDRD) > 60 (>60) mL/min BUN/Creatinine Ratio 11.3 L (14-18) Glucose 106 (74-106) mg/dL Lactic Acid 1.0 (0.4-2.0) mmol/L Calcium 9.0 (8.5-10.1) mg/dL Magnesium 1.8 (1.8-2.4) mg/dl Total Bilirubin 0.2 (0.2-1.0) mg/dL AST 20 (15-37) U/L ALT 27 (14-59) U/L Alkaline Phosphatase 101 (46-116) U/L Troponin I < 0.017 (0.00-0.056) ng/mL C-Reactive Protein 1.0 (<1.0) mg/dL NT-Pro-B Natriuret Pep (0-125) pg/mL Total Protein 7.8 (6.4-8.2) g/dl Albumin 3.4 (3.4-5.0) g/dl Globulin 4.4 gm/dL Albumin/Globulin Ratio 0.8 L (1-2) Urine Color (Yellow) Urine Appearance (Clear) Urine pH (5.0-8.0) Ur Specific [place] (1.005-1.030) Urine Protein (Negative) Urine Glucose (UA) (Negative) Urine Ketones (Negative) Urine Occult Blood (Negative) Urine Nitrite (Negative) Urine Bilirubin (Negative) Urine Urobilinogen (0.2-1.0) Ur Leukocyte Esterase (Negative) Urine RBC (0-5) /hpf Urine WBC (0-5) /hpf Ur Squamous Epith Cells (0-5) /hpf Amorphous Sediment (NOT SEEN) /hpf Urine Bacteria (FEW) /hpf Urine Mucus (FEW) /hpf 03/05/19 03/05/19 03/05/19 Range/Units 16:55 16:55 17:01 WBC (3.98-10.04) K/mm3 RBC (3.98-5.22) M/mm3 Hgb (11.2-15.7) gm/dl Hct (34.1-44.9) % MCV (79.4-94.8) fl MCH (25.6-32.2) pg MCHC (32.2-35.5) g/dl RDW Std Deviation (36.4-46.3) fL Plt Count (182-369) K/mm3 MPV (9.4-12.3) fl Neutrophils % (Manual) (40-60) % Band Neutrophils % (0-10) % Lymphocytes % (Manual) (20-40) % Atypical Lymphs % % Monocytes % (Manual) (2-10) % Eosinophils % (Manual) (0.7-5.8) % Basophils % (Manual) (0.1-1.2) Platelet Estimate RBC Morph Comment PT 9.6 L (9.7-12.0) SECONDS INR < 0.93 APTT 26 (22-31) SECONDS D-Dimer, Quantitative 1.18 H (0.19-0.50) mg/L Puncture Site Rt radial ABG pH 7.38 (7.35-7.45) ABG pCO2 42.5 (35.0-45.0) mmHg ABG pO2 96.0 (80.0-100.0) mmHg ABG HCO3 24.7 (22.0-26.0) meq/L ABG O2 Saturation 96.3 (96.0-97.0) % ABG Base Excess 0.1 (-2-2.0) Dao Test Positive A-a Gradient 137 mmHg O2 Delivery Device Nasal cannula Oxygen Flow Rate 5.0 FiO2 50.00 (21.00-100.00) % Sodium (136-145) mEq/L Potassium (3.5-5.1) mEq/L Chloride (98-107) mEq/L Carbon Dioxide (21-32) mEq/L Anion Gap (5-15) BUN (7-18) mg/dL Creatinine (0.55-1.02) mg/dL Est Cr Clr Drug Dosing mL/min Estimated GFR (MDRD) (>60) mL/min BUN/Creatinine Ratio (14-18) Glucose (74-106) mg/dL Lactic Acid (0.4-2.0) mmol/L Calcium (8.5-10.1) mg/dL Magnesium (1.8-2.4) mg/dl Total Bilirubin (0.2-1.0) mg/dL AST (15-37) U/L ALT (14-59) U/L Alkaline Phosphatase (46-116) U/L Troponin I (0.00-0.056) ng/mL C-Reactive Protein (<1.0) mg/dL NT-Pro-B Natriuret Pep 181 H (0-125) pg/mL Total Protein (6.4-8.2) g/dl Albumin (3.4-5.0) g/dl Globulin gm/dL Albumin/Globulin Ratio (1-2) Urine Color (Yellow) Urine Appearance (Clear) Urine pH (5.0-8.0) Ur Specific [place] (1.005-1.030) Urine Protein (Negative) Urine Glucose (UA) (Negative) Urine Ketones (Negative) Urine Occult Blood (Negative) Urine Nitrite (Negative) Urine Bilirubin (Negative) Urine Urobilinogen (0.2-1.0) Ur Leukocyte Esterase (Negative) Urine RBC (0-5) /hpf Urine WBC (0-5) /hpf Ur Squamous Epith Cells (0-5) /hpf Amorphous Sediment (NOT SEEN) /hpf Urine Bacteria (FEW) /hpf Urine Mucus (FEW) /hpf 03/05/19 Range/Units 18:35 WBC (3.98-10.04) K/mm3 RBC (3.98-5.22) M/mm3 Hgb (11.2-15.7) gm/dl Hct (34.1-44.9) % MCV (79.4-94.8) fl MCH (25.6-32.2) pg MCHC (32.2-35.5) g/dl RDW Std Deviation (36.4-46.3) fL Plt Count (182-369) K/mm3 MPV (9.4-12.3) fl Neutrophils % (Manual) (40-60) % Band Neutrophils % (0-10) % Lymphocytes % (Manual) (20-40) % Atypical Lymphs % % Monocytes % (Manual) (2-10) % Eosinophils % (Manual) (0.7-5.8) % Basophils % (Manual) (0.1-1.2) Platelet Estimate RBC Morph Comment PT (9.7-12.0) SECONDS INR APTT (22-31) SECONDS D-Dimer, Quantitative (0.19-0.50) mg/L Puncture Site ABG pH (7.35-7.45) ABG pCO2 (35.0-45.0) mmHg ABG pO2 (80.0-100.0) mmHg ABG HCO3 (22.0-26.0) meq/L ABG O2 Saturation (96.0-97.0) % ABG Base Excess (-2-2.0) Dao Test A-a Gradient mmHg O2 Delivery Device Oxygen Flow Rate FiO2 (21.00-100.00) % Sodium (136-145) mEq/L Potassium (3.5-5.1) mEq/L Chloride (98-107) mEq/L Carbon Dioxide (21-32) mEq/L Anion Gap (5-15) BUN (7-18) mg/dL Creatinine (0.55-1.02) mg/dL Est Cr Clr Drug Dosing mL/min Estimated GFR (MDRD) (>60) mL/min BUN/Creatinine Ratio (14-18) Glucose (74-106) mg/dL Lactic Acid (0.4-2.0) mmol/L Calcium (8.5-10.1) mg/dL Magnesium (1.8-2.4) mg/dl Total Bilirubin (0.2-1.0) mg/dL AST (15-37) U/L ALT (14-59) U/L Alkaline Phosphatase (46-116) U/L Troponin I (0.00-0.056) ng/mL C-Reactive Protein (<1.0) mg/dL NT-Pro-B Natriuret Pep (0-125) pg/mL Total Protein (6.4-8.2) g/dl Albumin (3.4-5.0) g/dl Globulin gm/dL Albumin/Globulin Ratio (1-2) Urine Color Yellow (Yellow) Urine Appearance Clear (Clear) Urine pH 6.0 (5.0-8.0) Ur Specific [place] 1.020 (1.005-1.030) Urine Protein Negative (Negative) Urine Glucose (UA) Negative (Negative) Urine Ketones Negative (Negative) Urine Occult Blood Negative (Negative) Urine Nitrite Negative (Negative) Urine Bilirubin Negative (Negative) Urine Urobilinogen 0.2 (0.2-1.0) Ur Leukocyte Esterase Negative (Negative) Urine RBC 0-5 (0-5) /hpf Urine WBC Not seen (0-5) /hpf Ur Squamous Epith Cells Not seen (0-5) /hpf Amorphous Sediment Rare H (NOT SEEN) /hpf Urine Bacteria Rare (FEW) /hpf Urine Mucus Moderate H (FEW) /hpf Result Diagrams: 03/05/19 16:55 03/05/19 16:55 - Problem List (1) Pulmonary embolism SNOMED Code(s): 86101523 ICD Code: I26.99 - OTHER PULMONARY EMBOLISM WITHOUT ACUTE COR PULMONALE Status: Acute Current Visit: Yes (2) Hypothyroidism SNOMED Code(s): 20420260 ICD Code: E03.9 - HYPOTHYROIDISM, UNSPECIFIED Status: Acute Current Visit : Yes (3) Ex-smoker for less than 1 year SNOMED Code(s): 213730221 ICD Code: Z78.9 - OTHER SPECIFIED HEALTH STATUS Status: Acute Current Visit: Yes (4) Hypoxemia SNOMED Code(s): 781453725 ICD Code: R09.02 - HYPOXEMIA Status: Acute Current Visit: Yes Orders Last 24hrs: Active Orders 24 hr Category Date Time Status EKG Documentation Completion [RC] STAT Care 03/05/19 16:51 Active EKG Documentation Completion [RC] STAT Care 03/05/19 16:52 Inactive Influenza Vaccine Charge [RC] .DISCHARGE Care 03/05/19 16:57 Active Influenza Vaccine Charge [RC] .DISCHARGE Care 03/05/19 17:04 Active Oxygen Therapy [RC] ASDIRECTED Care 03/05/19 16:51 Active RT Aerosol Therapy [RC] ASDIRECTED Care 03/05/19 16:55 Active RT Aerosol Therapy [RC] ASDIRECTED Care 03/05/19 20:13 Active RT Aerosol Therapy [RC] ASDIRECTED Care 03/05/19 20:47 Active Chest 1V Frontal [CR] Stat Exams 03/05/19 16:52 Taken CULTURE BLOOD [BC] Stat Lab 03/05/19 17:18 Received CULTURE BLOOD [BC] Stat Lab 03/05/19 17:33 Received Dextrose 5%-0.9% NaCl [Dextrose 5%-Normal Saline] 1,000 Med 03/05/19 17:00 Active ml IV ASDIRECTED Sodium Chloride 0.9% [Normal Saline] 100 ml Med 03/05/19 19:00 Active IV ASDIRECTED Sodium Chloride 0.9% [Saline Flush] Med 03/05/19 18:53 Active 10 ml FLUSH ONETIME PRN Blood Culture x2 Reflex Set [OM.PC] Stat Oth 03/05/19 16:53 Ordered Medication Orders Dextrose/Sodium Chloride (Dextrose 5%-Normal Saline) 1,000 mls @ 150 mls/hr IV ASDIRECTED ARMANDO Last Admin: 03/05/19 17:21 Dose: 150 mls/hr Sodium Chloride (Normal Saline) 100 mls @ 75 mls/hr IV ASDIRECTED ARMANDO Last Admin: 03/05/19 19:34 Dose: 75 mls/hr Sodium Chloride (Saline Flush) 10 ml FLUSH ONETIME PRN PRN Reason: IV FLUSH Last Admin: 03/05/19 19:34 Dose: 10 ml
[2019-03-05] MEDS ORDERED: Acetaminophen 325 MG Tab PO PRN (21:12)
[2019-03-05] MEDS ORDERED: guaiFENesin/Dextromethorphan 100-10 MG/5 ML Soln 5 ML Cup PO PRN (21:12)
[2019-03-05] MEDS: Albuterol/Ipratropium 3.0-0.5 MG/3 ML Neb Soln NEB SCH (22:40)
[2019-03-05] MEDS: buPROPion 150 MG Tab.SR PO SCH (22:58)
[2019-03-05] MEDS ORDERED: Enoxaparin 80 MG/0.8 ML Syringe SUBCUT ONE (23:57)
[2019-03-06] MEDS ORDERED: FLU Vacc QS2019-20(6MOS+)/PF 60 MCG/0.5 ML SYRINGE IM ONE (00:15)
[2019-03-06] MEDS: Albuterol/Ipratropium 3.0-0.5 MG/3 ML Neb Soln NEB SCH ×6 (02:28→21:58)
[2019-03-06] MEDS: Budesonide 0.5 MG/2 ML Neb Susp NEB SCH ×2 (06:24→21:58)
[2019-03-06] MEDS: Levothyroxine 100 MCG Tab PO SCH (07:40)
--- NOTE | 2019-03-06 08:00 | CR ---
Chest: Portable view of the chest was obtained. Comparison: Prior chest x-ray of 11/22/18. Chronic pleural thickening noted within the lateral right costophrenic angle. Lungs are clear with no acute parenchymal change. Heart size is within normal limits for portable technique. Tortuous thoracic aorta is seen. Old healed left clavicle fracture is noted. Several old healed right-sided rib fractures are noted. Surgical clips are seen from prior cholecystectomy. Impression: 1. Findings which are believed to be incidental. Nothing acute is appreciated on portable chest x-ray. Diagnostic code #2
[2019-03-06] MEDS: Enoxaparin 80 MG/0.8 ML Syringe SUBCUT SCH ×2 (09:04→21:41)
[2019-03-06] MEDS: buPROPion 150 MG Tab.SR PO SCH (09:06)
[2019-03-06] MEDS ORDERED: Magnesium Sulfate/Water 2 GM in Premix Bag 1 BAG IV ONE (09:36)
[2019-03-06] MEDS ORDERED: BUPROPION 150 MG PO SCH (09:42)
[2019-03-06] MEDS: Lactated Ringers 1,000 ML IV SCH ×2 (09:53→13:47)
[2019-03-06] MEDS: Oseltamivir 75 MG Cap PO SCH ×2 (09:55→21:40)
[2019-03-06] MEDS ORDERED: methylPREDNISolone Sodium Succinate 125 MG/2 ML SDV IVPUSH ONE (11:00)
--- NOTE | 2019-03-06 11:50 | US ---
Bilateral lower extremity deep venous ultrasound: Duplex and color Doppler imaging was obtained of the right and left common femoral, proximal greater saphenous, superficial femoral, popliteal, posterior tibial and peroneal veins. Comparison: No previous venous imaging is available. Findings: Normal phasic flow, augmentation and compression are seen. Impression: 1. No evidence of deep venous thrombosis within the right or left lower extremities. Diagnostic code #1
--- NOTE | 2019-03-06 20:13 | PCM.PN ---
- General Info Date of Service: 03/06/19 - Patient Data Vitals - Most Recent: Last Vital Signs Temp 36.8 C 03/06/19 16:31 Pulse 85 03/06/19 11:34 Resp 18 03/06/19 11:34 BP 114/78 03/06/19 11:34 Pulse Ox 98 03/06/19 17:49 Weight - Most Recent: 74.797 kg I&O - Last 24 Hours: Intake & Output 03/06/19 03/06/19 03/06/19 06:59 14:59 22:59 Intake Total 610 855 3238 Output Total 650 1850 Balance -350 180 857 Lab Results Last 24 Hours: Laboratory Results - last 24 hr 03/06/19 03/06/19 Range/Units 04:24 04:24 WBC 5.95 (3.98-10.04) K/mm3 RBC 3.75 L (3.98-5.22) M/mm3 Hgb 12.6 (11.2-15.7) gm/dl Hct 37.0 (34.1-44.9) % MCV 98.7 H (79.4-94.8) fl MCH 33.6 H (25.6-32.2) pg MCHC 34.1 (32.2-35.5) g/dl RDW Std Deviation 46.7 H (36.4-46.3) fL Plt Count 309 (182-369) K/mm3 MPV 9.6 (9.4-12.3) fl Neut % (Auto) 93.6 H (34.0-71.1) % Lymph % (Auto) 5.2 L (19.3-51.7) % Rogers % (Auto) 1.0 L (4.7-12.5) % Eos % (Auto) 0 L (0.7-5.8) Baso % (Auto) 0.2 (0.1-1.2) % Neut # (Auto) 5.57 (1.56-6.13) K/mm3 Lymph # (Auto) 0.31 L (1.18-3.74) K/mm3 [place] # (Auto) 0.06 L (0.24-0.36) K/mm3 Eos # (Auto) 0.00 L (0.04-0.36) K/mm3 Baso # (Auto) 0.01 (0.01-0.08) K/mm3 Manual Slide Review Abnormal smear Sodium 138 (136-145) mEq/L Potassium 4.0 (3.5-5.1) mEq/L Chloride 103 (98-107) mEq/L Carbon Dioxide 23 (21-32) mEq/L Anion Gap 16.0 H (5-15) BUN 9 (7-18) mg/dL Creatinine 0.9 (0.55-1.02) mg/dL Est Cr Clr Drug Dosing 54.99 mL/min Estimated GFR (MDRD) > 60 (>60) mL/min BUN/Creatinine Ratio 10.0 L (14-18) Glucose 228 H (74-106) mg/dL Calcium 8.6 (8.5-10.1) mg/dL Phosphorus 2.7 (2.6-4.7) mg/dL Magnesium 1.7 L (1.8-2.4) mg/dl Zak Results Last 24 Hours: Microbiology 03/05/19 17:18 Aerobic Blood Culture - Preliminary Blood - Venous - Lab Draw NO GROWTH AFTER 1 DAY Anaerobic Blood Culture - Preliminary NO GROWTH AFTER 1 DAY 03/05/19 17:33 Aerobic Blood Culture - Preliminary Blood - Venous NO GROWTH AFTER 1 DAY Anaerobic Blood Culture - Preliminary NO GROWTH AFTER 1 DAY 03/06/19 00:44 Influenza Type A Antigen Screen - Final Nasopharyngeal Swab - Nare, Unspecified NEGATIVE INFLUENZA A VIRUS AG REFERENCE RANGE: NEGATIVE Influenza Type B Antigen Screen - Final Positive Influenza B Ag Med Orders - Current: Current Medications Acetaminophen (Tylenol) 650 mg PO Q4H PRN PRN Reason: Pain (Mild 1-3)/fever Last Admin: 03/05/19 22:57 Dose: 650 mg Albuterol/Ipratropium (Duoneb 3.0-0.5 Mg/3 Ml) 3 ml NEB Q4HRRT [facility] Last Admin: 03/06/19 17:47 Dose: 3 ml Budesonide (Pulmicort) 0.5 mg NEB BIDRT [facility] Last Admin: 03/06/19 06:24 Dose: 0.5 mg Bupropion HCl (Wellbutrin Sr) 150 mg PO BID [facility] Enoxaparin Sodium (Lovenox) 70 mg SUBCUT Q12HR [facility] Last Admin: 03/06/19 09:04 Dose: 70 mg Guaifenesin/Phenylephrine HCl (Robitussin Dm) 10 ml PO Q4H PRN PRN Reason: Cough Lactated Ringer's (Ringers, Lactated) 1,000 mls @ 250 mls/hr IV ASDIRECTED [facility] Stop: 03/07/19 13:29 Last Admin: 03/06/19 13:47 Dose: 125 mls/hr Levothyroxine Sodium (Synthroid) 100 mcg PO ACBREAKFAST [facility] Last Admin: 03/06/19 07:40 Dose: 100 mcg Oseltamivir Phosphate (Tamiflu) 75 mg PO BID [facility] Last Admin: 03/06/19 09:55 Dose: 75 mg Sodium Chloride (Saline Flush) 10 ml FLUSH ASDIRECTED PRN PRN Reason: Keep Vein Open Discontinued Medications Albuterol/Ipratropium (Duoneb 3.0-0.5 Mg/3 Ml) 3 ml NEB ONETIME ONE Stop: 03/05/19 16:56 Last Admin: 03/05/19 17:17 Dose: 3 ml Albuterol/Ipratropium (Duoneb 3.0-0.5 Mg/3 Ml) 3 ml NEB ONETIME ONE Stop: 03/05/19 20:13 Last Admin: 03/05/19 20:36 Dose: 3 ml Budesonide (Pulmicort) 0.5 mg NEB ONETIME ONE Stop: 03/05/19 20:48 Last Admin: 03/05/19 21:24 Dose: 0.5 mg Bupropion HCl (Wellbutrin Sr) 150 mg PO BID [facility] Last Admin: 03/06/19 09:06 Dose: Not Given Enoxaparin Sodium (Lovenox) 70 mg SUBCUT ONETIME ONE Stop: 03/05/19 23:58 Last Admin: 03/06/19 00:20 Dose: 70 mg Dextrose/Sodium Chloride (Dextrose 5%-Normal Saline) 1,000 mls @ 150 mls/hr IV ASDIRECTED [facility] Last Admin: 03/05/19 17:21 Dose: 150 mls/hr Sodium Chloride (Normal Saline) 100 mls @ 75 mls/hr IV ASDIRECTED [facility] Last Admin: 03/05/19 19:34 Dose: 75 mls/hr Magnesium Sulfate 2 gm/ Premix 50 mls @ 25 mls/hr IV ONETIME ONE Stop: 03/06/19 11:35 Last Admin: 03/06/19 09:54 Dose: 25 mls/hr Influenza Virus Vaccine (Pharmacy To Dose - Influenza Vaccine) 1 each IM ONETIME ONE Stop: 03/05/19 16:57 Influenza Virus Vaccine (Fluzone Quad Syringe) 60 mcg IM .ONCE ONE Stop: 03/06/19 00:16 Iopamidol (Isovue-370 (76%)) 100 ml IVPUSH ONETIME ONE Stop: 03/05/19 18:54 Last Admin: 03/05/19 19:34 Dose: 100 ml Methylprednisolone Sodium Succinate (Solu-Medrol) 125 mg IVPUSH ONETIME ONE Stop: 03/05/19 20:14 Last Admin: 03/05/19 20:38 Dose: 125 mg Methylprednisolone Sodium Succinate (Solu-Medrol) 125 mg IVPUSH ONETIME ONE Stop: 03/06/19 11:01 Last Admin: 03/06/19 11:39 Dose: 125 mg Sodium Chloride (Saline Flush) 10 ml FLUSH ONETIME PRN PRN Reason: IV FLUSH Last Admin: 03/05/19 19:34 Dose: 10 ml - Problem List & Annotations (1) Pulmonary embolism SNOMED Code(s): 42092423 Code(s): I26.99 - OTHER PULMONARY EMBOLISM WITHOUT ACUTE COR PULMONALE Status: Acute Current Visit: Yes (2) Hypothyroidism SNOMED Code(s): 12508179 Code(s): E03.9 - HYPOTHYROIDISM, UNSPECIFIED Status: Acute Current Visit : Yes (3) Ex-smoker for less than 1 year SNOMED Code(s): 303843856 Code(s): Z78.9 - OTHER SPECIFIED HEALTH STATUS Status: Acute Current Visit: Yes (4) Hypoxemia SNOMED Code(s): 625434984 Code(s): R09.02 - HYPOXEMIA Status: Acute Current Visit: Yes - My Orders Last 24 Hours: My Active Orders 03/05/19 21:12 Patient Status [ADT] Routine Ambulate [RC] ASDIRECTED Oxygen Therapy [RC] PRN VTE/DVT Education [RC] PER UNIT ROUTINE Acetaminophen [Tylenol] 650 mg PO Q4H PRN Dextromethorphan/guaiFENesin [Robitussin DM] 10 ml PO Q4H PRN Sodium Chloride 0.9% [Saline Flush] 10 ml FLUSH ASDIRECTED PRN Saline Lock Insert [OM.PC] Routine Resuscitation Status Routine 03/05/19 21:19 RT Aerosol Therapy [RC] ASDIRECTED 03/05/19 22:00 Albuterol/Ipratropium [DuoNeb 3.0-0.5 MG/3 ML] 3 ml NEB Q4HRRT 03/05/19 22:23 Influenza Vaccine Charge [RC] .DISCHARGE 03/06/19 06:00 Budesonide [Pulmicort] 0.5 mg NEB BIDRT Levothyroxine [Synthroid] 100 mcg PO ACBREAKFAST 03/06/19 09:00 Enoxaparin [Lovenox] 70 mg SUBCUT Q12HR 03/06/19 09:30 Lactated Ringers [Ringers, Lactated] 1,000 ml IV ASDIRECTED Oseltamivir [Tamiflu] 75 mg PO BID 03/06/19 21:00 buPROPion [Wellbutrin SR] 150 mg PO BID 03/06/19 Breakfast Regular Diet [DIET]
[2019-03-06] MEDS: BUPROPION 150 MG PO SCH (21:52)
[2019-03-07] MEDS: Albuterol/Ipratropium 3.0-0.5 MG/3 ML Neb Soln NEB SCH ×6 (01:57→21:00)
[2019-03-07] MEDS: Budesonide 0.5 MG/2 ML Neb Susp NEB SCH ×2 (05:07→20:55)
[2019-03-07] MEDS: Levothyroxine 100 MCG Tab PO SCH (05:11)
[2019-03-07] MEDS: Oseltamivir 75 MG Cap PO SCH ×2 (08:14→20:58)
[2019-03-07] MEDS: BUPROPION 150 MG PO SCH ×2 (08:14→20:59)
[2019-03-07] MEDS: Enoxaparin 80 MG/0.8 ML Syringe SUBCUT SCH (08:17)
[2019-03-07] MEDS: Rivaroxaban 15 MG Tab PO SCH (20:59)
[2019-03-07] MEDS ORDERED: Enoxaparin 80 MG/0.8 ML Syringe SUBCUT ONE (23:00)
[2019-03-08] MEDS: Albuterol/Ipratropium 3.0-0.5 MG/3 ML Neb Soln NEB SCH ×2 (01:44→05:11)
[2019-03-08] MEDS: Budesonide 0.5 MG/2 ML Neb Susp NEB SCH (05:11)
[2019-03-08] MEDS: Levothyroxine 100 MCG Tab PO SCH (05:23)
--- NOTE | 2019-03-08 07:38 | PCM.DCSUM1 ---
Discharge Summary - Hospital Course HPI Initial Comments: Please choose a primary doctor and follow-up with them to have a flu shot. hospitalist recommends getting flu immunization once you are done with your Tamiflu and having a pneumovax 23 immunization after tamiflu is done. You are being referred to a health care technician. You must have outpatient pulmonary function testing in 2 weeks. Respiratory care at [facility] will call you to schedule this appointment. Call [phone] if they do not call you to schedule this. You may also have this testing done with [facility] if you prefer: ask your primary doctor for an order to have pulmonary function testing done and they will tell you how to follow-up. INSTRUCTIONS TO PATIENT 1. Please follow-up with your primary care physician in the next 3-5 days 2. Please follow-up with specialist field engineer 3. You are being discharged on Tamiflu to treat your implants (follow) infection , you need to take 2 more days to complete 5 days. Regardless of this infection and he will still need to get a flu vaccine this season in approximately 1 week. 4. You are also being discharged on a steroid. He'll he did take this medication for 6 days. Taking 1 tablet each day. 5. You are being discharged with a as needed bronchodilator inhaler, please uses only when he had symptoms. 6. Due to her smoking history it is very likely that you have COPD (chronic obstructive pulmonary disease) for which she will have to follow up with a specialist field engineer. The definitive way to diagnose his disease is her pulmonary function test, he will need to get these 2 weeks prior to consultation with pulmonary. 7. During her admission review received the pneumonia vaccine, Pneumovax 23, he will need to get Prevnar 13 in one year. INSTRUCTIONS TO PRIMARY CARE PROVIDER Patient was admitted with acute onset shortness of breath for which a CT of the chest was performed finding a subsegmental thrombus. At the same time patient had minimal air entry in both lungs with wheezing for which she was started on scheduled DuoNeb. Influenza swab was positive and she was started on Tamiflu to complete 5 days on 03/10. As for her pulmonary embolism and she was started on Xarelto, Doppler of lower extremities negative for deep vein thrombosis, unknown source of thrombus. As per patient she has a heavy family history spontaneous thrombosis, likely has an inherited disease. Workup was ordered to the fact that regardless of diagnosis she will need indefinite anticoagulation. She was severely hypoxemic at 88% on admission, and required oxygen supplementation for the first 36 hours during her admission. At the same time patient has a heavy smoking history, as well as secondhand smoking exposure. It is a hint of this that I have referred her to a health care technician who performed pulmonary function testing to rule out COPD 1. Please make sure patient follows up with specialist field engineer 2. Patient was given Pneumovax 23. Admission, she will need Prevnar 13 next February 3. Discharged with as needed albuterol inhaler 4. Discharged on Medrol pack taper 5. Loading dose of Xarelto should be considered Transfer attacks done by 03/28, after which he was given for the 20 mg daily.. Diagnosis: Stroke: No - Discharge Data Discharge Disposition: Home, Self-Care 01 Condition: Good - Referral to Home Health Primary Care Physician: PCP Not In Area - Discharge Diagnosis/Problem(s) (1) Pulmonary embolism SNOMED Code(s): 56961062 ICD Code: I26.99 - OTHER PULMONARY EMBOLISM WITHOUT ACUTE COR PULMONALE Status: Acute Current Visit: Yes Qualifiers: Pulmonary embolism type: single subsegmental (without acute cor pulmonale) Qualified Code(s): I26.93 - Single subsegmental pulmonary embolism without acute cor pulmonale (2) Hypothyroidism SNOMED Code(s): 56891069 ICD Code: E03.9 - HYPOTHYROIDISM, UNSPECIFIED Status: Acute Current Visit : Yes Qualifiers: Hypothyroidism type: unspecified Qualified Code(s): E03.9 - Hypothyroidism , unspecified (3) Hypoxemia SNOMED Code(s): 316117224 ICD Code: R09.02 - HYPOXEMIA Status: Resolved Current Visit: Yes (4) Ex-smoker SNOMED Code(s): 5607660 ICD Code: Z87.891 - PERSONAL HISTORY OF NICOTINE DEPENDENCE Status: Acute Priority: Medium Current Visit: Yes Onset Date: ~05/31/72 (5) Influenzal pneumonia SNOMED Code(s): 60804607805395 ICD Code: J11.00 - FLU DUE TO UNIDENTIFIED FLU VIRUS W UNSP TYPE OF PNEUMONIA Status: Acute Current Visit: Yes - Patient Instructions Diet: Usual Diet as Tolerated Activity: As Tolerated Driving: May Drive Today Showering/Bathing: May Shower Notify Provider of: Fever, Nausea and/or Vomiting - Discharge Plan Prescriptions/Med Rec: Albuterol [Ventolin HFA] 2 puff INH Q4H PRN 30 Days #180 puff PRN Reason: Shortness Of Breath Dextromethorphan/guaiFENesin [Robitussin DM] 10 ml PO Q4H PRN #2 bottle PRN Reason: Cough methylPREDNISolone [Medrol] 84 mg PO DAILY 6 Days #1 tab.ds.pk Oseltamivir [Tamiflu] 75 mg PO BID 3 Days cap Rivaroxaban [Xarelto] 15 mg PO BID 20 Days tablet Rivaroxaban [Xarelto] 20 mg PO DAILY 30 Days #30 tablet Home Medications: Home Meds Levothyroxine [Synthroid] 100 mcg PO DAILY 02/25/18 [History] buPROPion [Wellbutrin SR] 150 mg PO BID 02/25/18 [History] Estradiol 0.5 mg PO DAILY 09/26/18 [History] Albuterol [Ventolin HFA] 2 puff INH Q4H PRN 30 Days #180 puff 03/08/19 [Rx] Dextromethorphan/guaiFENesin [Robitussin DM] 10 ml PO Q4H PRN #2 bottle [Rx] Oseltamivir [Tamiflu] 75 mg PO BID 3 Days cap 03/08/19 [Rx] Rivaroxaban [Xarelto] 15 mg PO BID 20 Days tablet 03/08/19 [Rx] Rivaroxaban [Xarelto] 20 mg PO DAILY 30 Days #30 tablet 03/08/19 [Rx] methylPREDNISolone [Medrol] 84 mg PO DAILY 6 Days #1 tab.ds.pk 03/08/19 [Rx] Patient Handouts: Influenza, Adult, Nlke-sm-Syxb, Chronic Obstructive Pulmonary Disease, Eatn-sv-Fkwz Forms: ED Department Discharge Referrals: Brian Lopez Om, MD [Ordering Only Provider] - 06/01/19 11:00 am (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 Appointment is in [place] Standard Time. 11:00 am for Pulmonary Function Test, 12:30 for Chest X-Ray, 1:00 pm with Doctor. [facility] to [facility] to check in. You are on the wait list to get in to this provider sooner.) - Patient Data Vitals - Most Recent: Last Vital Signs Temp 36.8 C 03/08/19 05:26 Pulse 85 03/08/19 05:26 Resp 18 03/08/19 05:26 BP 133/90 03/08/19 05:26 Pulse Ox 92 L 03/08/19 05:26 Weight - Most Recent: 74.389 kg I&O - Last 24 hours: Intake & Output 03/07/19 03/08/19 03/08/19 22:59 06:59 14:59 Intake Total 1400 600 Output Total 1400 Balance 0 600 Lab Results - Last 24 hrs: Laboratory Results - last 24 hr 03/07/19 03/07/19 Range/Units 08:10 08:10 WBC 9.74 (3.98-10.04) K/mm3 RBC 3.50 L (3.98-5.22) M/mm3 Hgb 11.8 (11.2-15.7) gm/dl Hct 34.6 (34.1-44.9) % MCV 98.9 H (79.4-94.8) fl MCH 33.7 H (25.6-32.2) pg MCHC 34.1 (32.2-35.5) g/dl RDW Std Deviation 47.1 H (36.4-46.3) fL Plt Count 282 (182-369) K/mm3 MPV 9.4 (9.4-12.3) fl Neut % (Auto) 74.5 H (34.0-71.1) % Lymph % (Auto) 18.4 L (19.3-51.7) % Rabun % (Auto) 6.9 (4.7-12.5) % Eos % (Auto) 0.1 L (0.7-5.8) Baso % (Auto) 0.1 (0.1-1.2) % Neut # (Auto) 7.26 H (1.56-6.13) K/mm3 Lymph # (Auto) 1.79 (1.18-3.74) K/mm3 Rabun # (Auto) 0.67 H (0.24-0.36) K/mm3 Eos # (Auto) 0.01 L (0.04-0.36) K/mm3 Baso # (Auto) 0.01 (0.01-0.08) K/mm3 Sodium 142 (136-145) mEq/L Potassium 3.4 L (3.5-5.1) mEq/L Chloride 106 (98-107) mEq/L Carbon Dioxide 26 (21-32) mEq/L Anion Gap 13.4 (5-15) BUN 8 (7-18) mg/dL Creatinine 0.6 (0.55-1.02) mg/dL Est Cr Clr Drug Dosing 82.48 mL/min Estimated GFR (MDRD) > 60 (>60) mL/min BUN/Creatinine Ratio 13.3 L (14-18) Glucose 81 (74-106) mg/dL Calcium 8.4 L (8.5-10.1) mg/dL Phosphorus 3.1 (2.6-4.7) mg/dL Magnesium 1.7 L (1.8-2.4) mg/dl KIERAN Results - Last 24 hrs: Microbiology 03/05/19 17:18 Aerobic Blood Culture - Preliminary Blood - Venous - Lab Draw NO GROWTH AFTER 2 DAYS Anaerobic Blood Culture - Preliminary NO GROWTH AFTER 2 DAYS 03/05/19 17:33 Aerobic Blood Culture - Preliminary Blood - Venous NO GROWTH AFTER 2 DAYS Anaerobic Blood Culture - Preliminary NO GROWTH AFTER 2 DAYS Med Orders - Current: Current Medications Acetaminophen (Tylenol) 650 mg PO Q4H PRN PRN Reason: Pain (Mild 1-3)/fever Last Admin: 03/05/19 22:57 Dose: 650 mg Albuterol/Ipratropium (Duoneb 3.0-0.5 Mg/3 Ml) 3 ml NEB Q4HRRT [facility] Last Admin: 03/08/19 05:11 Dose: 3 ml Budesonide (Pulmicort) 0.5 mg NEB BIDRT [facility] Last Admin: 03/08/19 05:11 Dose: 0.5 mg Bupropion HCl (Wellbutrin Sr) 150 mg PO BID [facility] Last Admin: 03/07/19 20:59 Dose: 150 mg Guaifenesin/Phenylephrine HCl (Robitussin Dm) 10 ml PO Q4H PRN PRN Reason: Cough Last Admin: 03/07/19 05:19 Dose: 10 ml Levothyroxine Sodium (Synthroid) 100 mcg PO ACBREAKFAST [facility] Last Admin: 03/08/19 05:23 Dose: 100 mcg Oseltamivir Phosphate (Tamiflu) 75 mg PO BID [facility] Last Admin: 03/07/19 20:58 Dose: 75 mg Pneumococcal Polyvalent Vaccine (Pneumovax 23) 0.5 ml IM .ONCE ONE Stop: 03/08/19 12:31 Rivaroxaban (Xarelto) 15 mg PO BID [facility] Last Admin: 03/07/19 20:59 Dose: 15 mg Sodium Chloride (Saline Flush) 10 ml FLUSH ASDIRECTED PRN PRN Reason: Keep Vein Open Discontinued Medications Albuterol/Ipratropium (Duoneb 3.0-0.5 Mg/3 Ml) 3 ml NEB ONETIME ONE Stop: 03/05/19 16:56 Last Admin: 03/05/19 17:17 Dose: 3 ml Albuterol/Ipratropium (Duoneb 3.0-0.5 Mg/3 Ml) 3 ml NEB ONETIME ONE Stop: 03/05/19 20:13 Last Admin: 03/05/19 20:36 Dose: 3 ml Budesonide (Pulmicort) 0.5 mg NEB ONETIME ONE Stop: 03/05/19 20:48 Last Admin: 03/05/19 21:24 Dose: 0.5 mg Bupropion HCl (Wellbutrin Sr) 150 mg PO BID [facility] Last Admin: 03/06/19 09:06 Dose: Not Given Enoxaparin Sodium (Lovenox) 70 mg SUBCUT Q12HR [facility] Last Admin: 03/07/19 08:17 Dose: 70 mg Enoxaparin Sodium (Lovenox) 70 mg SUBCUT ONETIME ONE Stop: 03/05/19 23:58 Last Admin: 03/06/19 00:20 Dose: 70 mg Enoxaparin Sodium (Lovenox) 70 mg SUBCUT ONETIME ONE Stop: 03/07/19 23:01 Last Admin: 03/07/19 23:49 Dose: 70 mg Dextrose/Sodium Chloride (Dextrose 5%-Normal Saline) 1,000 mls @ 150 mls/hr IV ASDIRECTED [facility] Last Admin: 03/05/19 17:21 Dose: 150 mls/hr Sodium Chloride (Normal Saline) 100 mls @ 75 mls/hr IV ASDIRECTED [facility] Last Admin: 03/05/19 19:34 Dose: 75 mls/hr Lactated Ringer's (Ringers, Lactated) 1,000 mls @ 250 mls/hr IV ASDIRECTED ARMANDO Stop: 03/07/19 13:29 Last Admin: 03/06/19 13:47 Dose: 125 mls/hr Magnesium Sulfate 2 gm/ Premix 50 mls @ 25 mls/hr IV ONETIME ONE Stop: 03/06/19 11:35 Last Admin: 03/06/19 09:54 Dose: 25 mls/hr Influenza Virus Vaccine (Pharmacy To Dose - Influenza Vaccine) 1 each IM ONETIME ONE Stop: 03/05/19 16:57 Influenza Virus Vaccine (Fluzone Quad Syringe) 60 mcg IM .ONCE ONE Stop: 03/06/19 00:16 Iopamidol (Isovue-370 (76%)) 100 ml IVPUSH ONETIME ONE Stop: 03/05/19 18:54 Last Admin: 03/05/19 19:34 Dose: 100 ml Methylprednisolone (Medrol) 24 mg PO DAILY ONE Stop: 03/07/19 09:01 Last Admin: 03/07/19 08:13 Dose: 24 mg Methylprednisolone Sodium Succinate (Solu-Medrol) 125 mg IVPUSH ONETIME ONE Stop: 03/05/19 20:14 Last Admin: 03/05/19 20:38 Dose: 125 mg Methylprednisolone Sodium Succinate (Solu-Medrol) 125 mg IVPUSH ONETIME ONE Stop: 03/06/19 11:01 Last Admin: 03/06/19 11:39 Dose: 125 mg Sodium Chloride (Saline Flush) 10 ml FLUSH ONETIME PRN PRN Reason: IV FLUSH Last Admin: 03/05/19 19:34 Dose: 10 ml
[2019-03-08] MEDS: Oseltamivir 75 MG Cap PO SCH (08:29)
[2019-03-08] MEDS: Rivaroxaban 15 MG Tab PO SCH (08:29)
[2019-03-08] MEDS: BUPROPION 150 MG PO SCH (08:30)
[2019-03-08] MEDS ORDERED: Pneumococcal Polyvalent-23 Vaccine 0.5 ML SDV IM ONE (09:00)
== END 2019-03-08 09:57 | disposition home or self-care (01) | DRG 175 ==
LOC: JD.ED 16:38 → JD.MS 21:18
PROVIDERS: ADMIT Internal Medicine; ATTEND Internal Medicine
DX: I26.93 Single subsegmental thrombotic pulmonary embolism without acute cor pulmonale (principal); J11.00 Influenza due to unidentified influenza virus with unspecified type of pneumonia; F41.9 Anxiety disorder, unspecified; F32.9 Major depressive disorder, single episode, unspecified; E03.9 Hypothyroidism, unspecified; M19.91 Primary osteoarthritis, unspecified site; Z96.643 Presence of artificial hip joint, bilateral; Z90.49 Acquired absence of other specified parts of digestive tract; Z90.710 Acquired absence of both cervix and uterus; Z87.891 Personal history of nicotine dependence; Z79.3 Long term (current) use of hormonal contraceptives
CPT/HCPCS: 36415; 36600; 71045; 71045-26; 71275; 71275-26; 80048; 80053; 81001; 82803; 83605; 83735; 83880; 84100; 84484; 85007; 85025; 85027; 85379; 85610; 85730; 86140; 87040; 87804; 93005; 93010; 93970; 93970-26; 94640; 94760; 94761; 96361; 96374; 99285; 99285-25; A9270-GY; J1650; J2930; J3475; J7030; J7042; J7120; J7620-GY; Q9967

== ENCOUNTER 2019-05-25 21:11 | Emergency (ER) | payer MEDICAID ==
[2019-05-25] MEDS ORDERED: Acetaminophen/HYDROcodone 325-5 MG Tab PO ONE (22:19)
--- NOTE | 2019-05-25 22:32 | EDM.PDOC ---
ED HPI GENERAL MEDICAL PROBLEM - General Chief Complaint: Lower Extremity Injury/Pain Stated Complaint: right knee pain fell on ice yesterday Time Seen by Provider: 05/25/19 21:54 Source of Information: Reports: Patient, RN Notes Reviewed History Limitations: Reports: No Limitations - History of Present Illness INITIAL COMMENTS - FREE TEXT/NARRATIVE: Patient is a 58-year-old female who presents to the ED for evaluation of right knee pain after a fall on the ice yesterday. Patient notes that she was walking her daughter's dog yesterday, and slipped on some ice when the dog pulled on the leash, and ended up landing directly onto her right knee and the left side of her face. Patient's not complaining of any pain to her face, she has a small abrasion on her left cheekbone. She does note that she is taking Xarelto due to a blood clot a few months ago, but is just about done with taking the Xarelto. She does note that she is also taking prednisone for a rash on her arms. Patient denies any loss of consciousness, blurred vision or change in mentation she has no issues with a gait abnormality other than mild difficulty due to the knee pain. She does noted some swelling and bruising to the right knee. She denies any numbness/tingling distal to the extremity, and denies any sort of pain into her hip. She has not taken any sort of over-the- counter medication, as yesterday was [place] and she was not able to go to the store, because nothing was open. She also did not take anything today for pain relief. Right Knee Pain Score (Numeric/FACES): 8 - Related Data Allergies Allergy/AdvReac Type Severity Reaction Status Date / Time No Known Allergies Allergy Verified 05/25/19 21:29 Home Meds: Home Meds Levothyroxine [Synthroid] 100 mcg PO DAILY 02/25/18 [History] buPROPion [Wellbutrin SR] 150 mg PO BID 02/25/18 [History] estradioL [Estradiol] 0.5 mg PO DAILY 09/26/18 [History] Albuterol [Ventolin HFA] 2 puff INH Q4H PRN 30 Days #180 puff 03/08/19 [Rx] Rivaroxaban [Xarelto] 20 mg PO DAILY 30 Days #30 tablet 03/08/19 [Rx] Past Medical History HEENT History: Reports: Other (See Below) Other HEENT History: wears a contact in left eye only Respiratory History: Reports: Bronchitis, Recurrent, PE Other Respiratory History: has pneumonia and pleuresy TUTOR COORDINATOR History: Reports: Musculoskeletal History: Reports: Osteoarthritis Other Musculoskeletal History: Has degenerative disc disease Psychiatric History: Reports: Anxiety, Depression Endocrine/Metabolic History: Reports: Hypothyroidism Hematologic History: Reports: Anticoagulation Therapy Dermatologic History: Reports: Other (See Below) Other Dermatologic History: has red spotches to chest and have had burned off. states they could be precancerous. - Past Surgical History HEENT Surgical History: Reports: Oral Surgery Respiratory Surgical History: Reports: Other (See Below) Other Respiratory Surgeries/Procedures: Lung surgery to peel off scar tissue from a pneumonia. GI Surgical History: Reports: Cholecystectomy Female Surgical History: Reports: Hysterectomy, Salpingo-Oophorectomy Musculoskeletal Surgical History: Reports: Hip Replacement, Other (See Below) Other Musculoskeletal Surgeries/Procedures:: Bilateral Hip Replacement Social & Family History - Family History Family Medical History: Noncontributory - Tobacco Use Smoking Status *Q: Never Smoker - Caffeine Use Caffeine Use: Reports: Coffee, Tea Other Caffeine Use: 1-2 cups of coffee and 1-2 of tea everyday - Recreational Drug Use Recreational Drug Use: No - Living Situation & Occupation Living situation: Reports: , with Family (Daughter) Occupation: Unemployed Review of Systems - Review of Systems Review Of Systems: See Below Constitutional: Denies: Chills, Fever Respiratory: Denies: Shortness of Breath Cardiovascular: Denies: Chest Pain Musculoskeletal: Reports: Joint Pain (R knee), Joint Swelling (R knee with mild bruising noted to superior portion of knee) Skin: Reports: Bruising, Other (abrasion to L cheek bone). Denies: Wound ED EXAM, GENERAL - Physical Exam Exam: See Below Exam Limited By: No Limitations General Appearance: Alert, WD/WN, No Apparent Distress Nose: Normal Inspection, Normal Mucosa, No Blood Throat/Mouth: Normal Inspection, Normal Lips, Normal Teeth, Normal Gums, Normal Oropharynx, Normal Voice, No Airway Compromise Head: Normocephalic, Other (abrasion noted to left cheek bone and left jaw line) Neck: Normal Inspection Respiratory/Chest: No Respiratory Distress, Lungs Clear, Normal Breath Sounds, No Accessory Muscle Use, Chest Non-Tender Cardiovascular: Normal Peripheral Pulses, Regular Rate, Rhythm, No Murmur Peripheral Pulses: 3+: Dorsalis Pedis (L), Dorsalis Pedis (R) Extremities: Normal Inspection, Normal Capillary Refill, Limited Range of Motion (of right knee d/t pain) Neurological: Alert, Oriented, Normal Cognition, No Motor/Sensory Deficits, Other (limping gait d/t injury) Psychiatric: Normal Affect, Normal Mood Skin Exam: Warm, Dry, Intact, Normal Color, No Rash Course - Vital Signs Last Recorded V/S: Last Vital Signs Temp 97.6 F 05/25/19 21:25 Pulse 88 05/25/19 21:25 Resp 16 05/25/19 21:25 BP 142/93 H 05/25/19 21:25 Pulse Ox 96 05/25/19 21:25 - Orders/Labs/Meds Orders: Active Orders 24 hr Category Date Time Status Knee Min 4V Rt [CR] Stat Exams 05/25/19 21:54 Taken Meds: Medications Discontinued Medications Generic Name Dose Route Start Last Admin Trade Name Hope PRN Reason Stop Dose Admin Hydrocodone Bitart/Acetaminophen 1 tab 05/25/19 22:19 05/25/19 22:26 [place] 325-5 Mg PO 05/25/19 22:20 1 tab ONETIME ONE Administration - Re-Assessments/Exams Free Text/Narrative Re-Assessment/Exam: 05/25/19 22:33 Patient presents to the ED for the evaluation of a right knee injury. I did order x-ray of the knee, and this demonstrates no acute fracture or bony abnormality at this time. I do believe the patient has some sort of musculoskeletal strain of the right knee, or traumatic hematoma. Patient will be placed in a immobilizing knee brace, she was given one tablet of hydrocodone/ acetaminophen for pain relief, as she is currently on prednisone and Xarelto, and I do not want to give her Toradol or ibuprofen to increase her risk of bleeding. Departure - Departure Time of Disposition: 22:34 Disposition: Home, Self-Care 01 Condition: Fair Clinical Impression: Right anterior knee pain - Discharge Information *PRESCRIPTION DRUG MONITORING PROGRAM REVIEWED*: No *COPY OF PRESCRIPTION DRUG MONITORING REPORT IN PATIENT SOHAN: No Instructions: How to Use a Knee Immobilizer, Jetv-yn-Fssx, Joint Pain, Easy-to- Read Referrals: Nayely Lim MD [Primary Care Provider] - Additional Instructions: You have been evaluated in the ED for your right knee pain. Your x-ray demonstrated no acute fracture or other bony abnormality. Please use ice as tolerated to the affected area. You were given a opioid pain medication for further pain relief, this is hydrocodone/acetaminophen 5/325, please take one tablet every 6 hours as needed for pain relief. This pain medication has the potential to become addictive, please try to take as few of these as possible to provide pain relief. This pain medication also can cause some constipation, recommend you start taking a stool softener like MiraLAX if you are not every doing so to help guard against constipation. Recommend you obtain follow-up appointment with your primary care provider, roughly 1.5 - 2 weeks time, for re-evaluation of your knee injury. Please return to ED if your symptoms should change or worsen. Sepsis Event Note - Evaluation Sepsis Screening Result: No Definite Risk - Focused Exam Vital Signs: Vital Signs Temp Pulse Resp BP Pulse Ox 05/25/19 21:25 97.6 F 88 16 142/93 H 96 Date Exam was Performed: 05/25/19 Time Exam was Performed: 22:27 - My Orders Last 24 Hours: My Active Orders 05/25/19 21:54 Knee Min 4V Rt [CR] Stat - Assessment/Plan Last 24 Hours: My Active Orders 05/25/19 21:54 Knee Min 4V Rt [CR] Stat
--- NOTE | 2019-05-29 07:10 | CR ---
Right knee: Four views of the right knee were obtained. Comparison: No prior right knee exam is available. Slight osteophytes are noted off medial and lateral tibia. Bony structures are somewhat osteopenic. Small joint effusion is seen. No acute fracture or dislocation is seen. Impression: 1. Mild degenerative change, osteopenia and small joint effusion. Diagnostic code #2 This report was dictated in [place] Standard Time
== END 2019-05-25 22:50 | disposition home or self-care (01) ==
LOC: JD.ED 21:11
DX: M25.561 Pain in right knee (principal); Z79.899 Other long term (current) drug therapy
CPT/HCPCS: 73564; 99283; A9270

== ENCOUNTER 2020-12-14 11:21 | Emergency (ER) | payer MEDICAID ==
--- NOTE | 2020-12-14 13:03 | EDM.PDOC ---
ED HPI GENERAL MEDICAL PROBLEM - General Chief Complaint: Lower Extremity Injury/Pain Stated Complaint: L LEG INJURY Time Seen by Provider: 12/14/20 11:35 Source of Information: Reports: Patient, RN Notes Reviewed History Limitations: Reports: No Limitations - History of Present Illness INITIAL COMMENTS - FREE TEXT/NARRATIVE: Patient is a 60-year-old female presenting to the emergency part with complaints of left knee pain. She reports that yesterday she was carrying some groceries when she stepped on a rock. She twisted her right ankle and fell onto her left knee. States her right ankle feels okay, however she is having significant discomfort in her left knee. Had difficulty walking to the bathroom last evening. She has injured this knee in the past but has not fractured any bones or required surgery. She has been icing and elevating the extremity. Treatments LICENSED MIDWIFE: Reports: Other (see below) Other Treatments LICENSED MIDWIFE: none Left Knee Pain Score (Numeric/FACES): 8 - Related Data Allergies Allergy/AdvReac Type Severity Reaction Status Date / Time No Known Allergies Allergy Verified 05/25/19 21:29 Home Meds: Home Meds Levothyroxine [Synthroid] 100 mcg PO DAILY 02/25/18 [History] buPROPion [Wellbutrin SR] 150 mg PO BID 02/25/18 [History] estradioL [Estradiol] 0.5 mg PO DAILY 09/26/18 [History] Albuterol [Ventolin HFA] 2 puff INH Q4H PRN 30 Days #180 puff 03/08/19 [Rx] Past Medical History HEENT History: Reports: Other (See Below) Other HEENT History: wears a contact in left eye only Cardiovascular History: Reports: None Respiratory History: Reports: Bronchitis, Recurrent, PE Other Respiratory History: has pneumonia and pleuresy [employer] History: Reports: Musculoskeletal History: Reports: Osteoarthritis Other Musculoskeletal History: Has degenerative disc disease Neurological History: Reports: None Psychiatric History: Reports: Anxiety, Depression Endocrine/Metabolic History: Reports: Hypothyroidism Hematologic History: Reports: Anticoagulation Therapy Immunologic History: Reports: None Oncologic (Cancer) History: Reports: None Dermatologic History: Reports: Other (See Below) Other Dermatologic History: has red spotches to chest and have had burned off. states they could be precancerous. - Infectious Disease History Infectious Disease History: Reports: None - Past Surgical History Head Surgeries/Procedures: Reports: None HEENT Surgical History: Reports: Oral Surgery Other HEENT Surgeries/Procedures: wisdom teeth removal Cardiovascular Surgical History: Reports: None Respiratory Surgical History: Reports: Other (See Below) Other Respiratory Surgeries/Procedures: Lung surgery to peel off scar tissue from a pneumonia. GI Surgical History: Reports: Cholecystectomy Female Surgical History: Reports: Hysterectomy, Salpingo-Oophorectomy Endocrine Surgical History: Reports: None Neurological Surgical History: Reports: None Musculoskeletal Surgical History: Reports: Hip Replacement, Other (See Below) Other Musculoskeletal Surgeries/Procedures:: Bilateral Hip Replacement Oncologic Surgical History: Reports: None Dermatological Surgical History: Reports: None Social & Family History - Family History Family Medical History: No Pertinent Family History - Tobacco Use Tobacco Use Status *Q: Never Tobacco User - Caffeine Use Caffeine Use: Reports: Coffee, Tea Other Caffeine Use: 1-2 cups of coffee and 1-2 of tea everyday - Recreational Drug Use Recreational Drug Use: No - Living Situation & Occupation Living situation: Reports: , with Family (Daughter) Occupation: Unemployed Review of Systems - Review of Systems Review Of Systems: Comprehensive ROS is negative, except as noted in HPI. ED EXAM, GENERAL - Physical Exam Exam: See Below General Appearance: Alert, WD/WN, No Apparent Distress Respiratory/Chest: No Respiratory Distress, Lungs Clear, Normal Breath Sounds, No Accessory Muscle Use, Chest Non-Tender Cardiovascular: Normal Peripheral Pulses, Regular Rate, Rhythm, No Edema, No Gallop, No JVD, No Murmur, No Rub Extremities: Other (Mild edema and faint ecchymosis to the dorsal aspect of the left knee. No obvious deformity. Area is slightly tender to palpation. Reports pain is worse with movement.) Neurological: Alert, Oriented, CN II-XII Intact, Normal Cognition, Normal Gait, Normal Reflexes, No Motor/Sensory Deficits Psychiatric: Normal Affect, Normal Mood Course - Vital Signs Last Recorded V/S: Last Vital Signs Temp 98.7 F 12/14/20 11:44 Pulse 88 12/14/20 11:44 Resp BP 121/89 12/14/20 11:44 Pulse Ox 93 L 12/14/20 11:44 - Orders/Labs/Meds Orders: Active Orders 24 hr Category Date Time Status Knee 3V Lt [CR] Stat Exams 12/14/20 11:48 Taken - Re-Assessments/Exams Free Text/Narrative Re-Assessment/Exam: 12/14/20 13:00 X-ray of the left knee shows no acute abnormalities. Nicholas wrap was applied for comfort. We will provide her with crutches. Recommend weightbearing as tolerated as well as ice and elevation. If still having pain after 1 week, follow-up in the clinic. Discharge instructions as documented. Departure - Departure Time of Disposition: 13:02 Disposition: Home, Self-Care 01 Condition: Good Clinical Impression: Contusion of knee - Discharge Information *PRESCRIPTION DRUG MONITORING PROGRAM REVIEWED*: No *COPY OF PRESCRIPTION DRUG MONITORING REPORT IN PATIENT SOHAN: No Instructions: Contusion, [id number] Referrals: Nayely Lim MD [Primary Care Provider] - Additional Instructions: You were seen in the emergency department today for pain to your left knee after falling yesterday. X-rays are completed and show no evidence of fracture. You are likely suffering from a contusion of the knee. Nicholas wrap has been applied. Recommend that she wear this for the next few days for comfort. You have been provided with crutches. You may bear weight on the extremity as tolerated. Recommend intermittent ice and elevation for the next few days. You may use Tylenol and ibuprofen as needed for discomfort. If you are still having substantial discomfort by the end of next week, recommend follow-up in the clinic. Return to ER as needed. Sepsis Event Note (ED) - Evaluation Sepsis Screening Result: No Definite Risk - Focused Exam Vital Signs: Vital Signs Temp Pulse BP Pulse Ox 12/14/20 11:44 98.7 F 88 121/89 93 L - My Orders Last 24 Hours: My Active Orders 12/14/20 11:48 Knee 3V Lt [CR] Stat - Assessment/Plan Last 24 Hours: My Active Orders 12/14/20 11:48 Knee 3V Lt [CR] Stat
--- NOTE | 2020-12-15 08:57 | CR ---
Left knee: AP, lateral and sunrise patellar views of the left knee were obtained. Comparison: No prior left knee study is available. Mild medial joint space narrowing is seen. Lateral joint space is preserved. Patellofemoral joint is preserved. Joint effusion is seen. No acute fracture or other abnormality is appreciated. Impression: 1. Medial joint space narrowing and fairly large joint effusion. 2. No definite acute osseous abnormality is seen. If patient remains symptomatic, follow-up study in 10-14 days could be considered. Diagnostic code #2
== END 2020-12-14 13:36 | disposition home or self-care (01) ==
LOC: JD.ED 11:21
DX: S80.02XA Contusion of left knee, initial encounter (principal); E03.9 Hypothyroidism, unspecified; Z79.899 Other long term (current) drug therapy; X50.1XXA Overexertion from prolonged static or awkward postures, initial encounter
CPT/HCPCS: 73562-26-LT; 73562-LT; 99282; 99283-25

== ENCOUNTER 2021-03-26 11:17 | Emergency (ER) | payer MEDICAID ==
[2021-03-26] MEDS ORDERED: Sodium Chloride 0.9% 10 ML Syringe FLUSH PRN (12:56)
[2021-03-26] MEDS ORDERED: methylPREDNISolone Sodium Succinate 125 MG/2 ML SDV IVPUSH ONE (13:44)
[2021-03-26] MEDS ORDERED: Albuterol/Ipratropium 3.0-0.5 MG/3 ML Neb Soln NEB ONE (13:45)
--- NOTE | 2021-03-26 14:08 | CR ---
Chest: Frontal view of the chest was obtained. Comparison: Prior chest x-ray of 03/05/19. Patchy areas of increased density are seen within the right chest. Slight perihilar interstitial change is seen within the left chest. Heart size is normal. Upper mediastinum is normal. Old fracture deformity is seen within the left clavicle. Impression: 1. Areas of increased density as noted above. Please exclude any symptoms of COVID pneumonia. Diagnostic code #3
--- NOTE | 2021-03-26 14:39 | EDM.PDOC ---
ED HPI GENERAL MEDICAL PROBLEM - General Chief Complaint: Respiratory Problem Stated Complaint: POSS COVID COUGH Time Seen by Provider: 03/26/21 12:37 Source of Information: Reports: Patient, RN Notes Reviewed History Limitations: Reports: No Limitations - History of Present Illness INITIAL COMMENTS - FREE TEXT/NARRATIVE: Patient is a 6 patient is a 60-year-old female presenting to the emergency department with complaints of cough, shortness of breath, intermittent fevers for the last few days. 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 She complains of extreme shortness of breath with exertion. Denies any significant chest pain. Reports she has been told in the past that she has COPD, however she has not had any formal testing completed for this. She has albuterol inhaler at home which she states has not been helping as she does not feel that she can get a deep enough breath to get the medication into her lungs. She denies any significant chest pain. She is had no nausea vomiting or diarrhea. On triage, after ambulating to the room, oxygen saturation was 75% on room air, however she quickly rebounded. Oxygen was applied and she is saturating in the upper 90s on 1 L by nasal cannula. - Related Data Allergies Allergy/AdvReac Type Severity Reaction Status Date / Time No Known Allergies Allergy Verified 03/26/21 12:38 Home Meds: Home Meds Levothyroxine [Synthroid] 100 mcg PO DAILY 02/25/18 [History] buPROPion [Wellbutrin SR] 150 mg PO BID 02/25/18 [History] estradioL [Estradiol] 0.5 mg PO DAILY 09/26/18 [History] Albuterol [Ventolin HFA] 2 puff INH Q4H PRN 30 Days #180 puff 03/08/19 [Rx] Albuterol/Ipratropium [DuoNeb 3.0-0.5 MG/3 ML] 3 ml .XX Q4H PRN #30 ml 03/26/21 [Rx] Azithromycin 250 mg PO ASDIRECTED 5 Days #6 tablet 03/26/21 [Rx] dexAMETHasone [Decadron] 6 mg PO DAILY 5 Days #5 tablet 03/26/21 [Rx] Past Medical History HEENT History: Reports: Other (See Below) Other HEENT History: wears a contact in left eye only Cardiovascular History: Reports: None Respiratory History: Reports: Bronchitis, Recurrent, PE Other Respiratory History: has pneumonia and pleuresy SAL[employer] History: Reports: Musculoskeletal History: Reports: Osteoarthritis Other Musculoskeletal History: Has degenerative disc disease Neurological History: Reports: None Psychiatric History: Reports: Anxiety, Depression Endocrine/Metabolic History: Reports: Hypothyroidism Hematologic History: Reports: Anticoagulation Therapy Immunologic History: Reports: None Oncologic (Cancer) History: Reports: None Dermatologic History: Reports: Other (See Below) Other Dermatologic History: has red spotches to chest and have had burned off. states they could be precancerous. - Infectious Disease History Infectious Disease History: Reports: None - Past Surgical History Head Surgeries/Procedures: Reports: None HEENT Surgical History: Reports: Oral Surgery Other HEENT Surgeries/Procedures: wisdom teeth removal Cardiovascular Surgical History: Reports: None Respiratory Surgical History: Reports: Other (See Below) Other Respiratory Surgeries/Procedures: Lung surgery to peel off scar tissue from a pneumonia. GI Surgical History: Reports: Cholecystectomy Female Surgical History: Reports: Hysterectomy, Salpingo-Oophorectomy Endocrine Surgical History: Reports: None Neurological Surgical History: Reports: None Musculoskeletal Surgical History: Reports: Hip Replacement, Other (See Below) Other Musculoskeletal Surgeries/Procedures:: Bilateral Hip Replacement Oncologic Surgical History: Reports: None Dermatological Surgical History: Reports: None Social & Family History - Family History Family Medical History: No Pertinent Family History - Caffeine Use Caffeine Use: Reports: Coffee, Tea Other Caffeine Use: 1-2 cups of coffee and 1-2 of tea everyday - Living Situation & Occupation Living situation: Reports: , with Family (Daughter) Occupation: Unemployed ED ROS GENERAL - Review of Systems Review Of Systems: See Below Constitutional: Reports: Fever, Chills, Fatigue HEENT: Reports: No Symptoms Respiratory: Reports: Shortness of Breath, Cough. Denies: Pleuritic Chest Pain Cardiovascular: Reports: Dyspnea on Exertion. Denies: Chest Pain, Lightheadedness, Syncope Endocrine: Reports: No Symptoms GI/Abdominal: Reports: No Symptoms : Reports: No Symptoms Musculoskeletal: Reports: No Symptoms Skin: Reports: No Symptoms Neurological: Reports: No Symptoms Psychiatric: Reports: No Symptoms Hematologic/Lymphatic: Reports: No Symptoms Immunologic: Reports: No Symptoms ED EXAM, GENERAL - Physical Exam Exam: See Below Exam Limited By: No Limitations General Appearance: Alert, WD/WN, No Apparent Distress Respiratory/Chest: No Respiratory Distress, No Accessory Muscle Use, Chest Non- Tender, Decreased Breath Sounds, Other (Tight. Occasional expiratory wheeze and rhonchi.) Cardiovascular: Normal Peripheral Pulses, Regular Rate, Rhythm, No Edema, No Gallop, No JVD, No Murmur, No Rub Neurological: Alert, Oriented, CN II-XII Intact, Normal Cognition, Normal Gait, Normal Reflexes, No Motor/Sensory Deficits Psychiatric: Normal Affect, Normal Mood Skin Exam: Warm, Dry, Intact, Normal Color, No Rash #1 Interpretation EKG Date: 03/26/21 Time: 13:14 Rhythm: NSR Rate (Beats/Min): 102 [place]: Normal P-Wave: Present QRS: Normal ST-T: Normal QT: Normal Course - Vital Signs Last Recorded V/S: Last Vital Signs Temp 99.1 F 03/26/21 12:34 Pulse 106 H 03/26/21 12:34 Resp 28 H 03/26/21 12:34 BP 164/98 H 03/26/21 12:34 Pulse Ox 92 L 03/26/21 13:45 - Orders/Labs/Meds Orders: Active Orders 24 hr Category Date Time Status BLOOD CULTURE [MREF] Stat Lab 03/26/21 16:36 Received BLOOD CULTURE [MREF] Stat Lab 03/26/21 16:42 Received CORONAVIRUS COVID-19 PCR PHL Routine Lab 03/26/21 12:31 Received CORONAVIRUS COVID-19 PCR PHL Routine Lab 03/26/21 14:33 Received Blood Culture x2 Reflex Set [OM.PC] Stat Oth 03/26/21 16:14 Ordered Isolation [COMM] Routine Oth 03/26/21 13:43 Ordered Peripheral IV Insertion Adult [OM.PC] Stat Oth 03/26/21 12:56 Ordered Labs: Laboratory Tests 03/26/21 03/26/21 03/26/21 Range/Units 12:31 13:03 13:10 WBC 10.05 H (3.98-10.04) K/mm3 RBC 3.96 L (3.98-5.22) M/mm3 Hgb 13.4 (11.2-15.7) gm/dl Hct 40.8 (34.1-44.9) % MCV 103.0 H (79.4-94.8) fl MCH 33.8 H (25.6-32.2) pg MCHC 32.8 (32.2-35.5) g/dl RDW Std Deviation 57.2 H (36.4-46.3) fL Plt Count 294 D (182-369) K/mm3 MPV 9.2 L (9.4-12.3) fl Neut % (Auto) 89.3 H (34.0-71.1) % Lymph % (Auto) 6.0 L (19.3-51.7) % [place] % (Auto) 4.2 L (4.7-12.5) % Eos % (Auto) 0 L (0.7-5.8) Baso % (Auto) 0.3 (0.1-1.2) % Neut # (Auto) 8.98 H (1.56-6.13) K/mm3 Lymph # (Auto) 0.60 L (1.18-3.74) K/mm3 [place] # (Auto) 0.42 H (0.24-0.36) K/mm3 Eos # (Auto) 0.00 L (0.04-0.36) K/mm3 Baso # (Auto) 0.03 (0.01-0.08) K/mm3 D-Dimer, Quantitative 1.03 H (0.19-0.50) mg/L Sodium (136-145) mEq/L Potassium (3.5-5.1) mEq/L Chloride (98-107) mEq/L Carbon Dioxide (21-32) mEq/L Anion Gap (5-15) BUN (7-18) mg/dL Creatinine (0.55-1.02) mg/dL Est Cr Clr Drug Dosing Estimated GFR (MDRD) (>60) mL/min BUN/Creatinine Ratio (14-18) Glucose (70-99) mg/dL Lactic Acid (0.4-2.0) mmol/L Calcium (8.5-10.1) mg/dL Total Bilirubin (0.2-1.0) mg/dL AST (15-37) U/L ALT (14-59) U/L Alkaline Phosphatase (46-116) U/L Troponin I (0.00-0.056) ng/mL C-Reactive Protein (<1.0) mg/dL NT-Pro-B Natriuret Pep (0-125) pg/mL Total Protein (6.4-8.2) g/dl Albumin (3.4-5.0) g/dl Globulin gm/dL Albumin/Globulin Ratio (1-2) Mycoplasma pneumon IgM (NEGATIVE) SARS-CoV-2 RNA (EZEQUIEL) Negative (NEGATIVE) 03/26/21 03/26/21 03/26/21 Range/Units 13:10 13:10 13:10 WBC (3.98-10.04) K/mm3 RBC (3.98-5.22) M/mm3 Hgb (11.2-15.7) gm/dl Hct (34.1-44.9) % MCV (79.4-94.8) fl MCH (25.6-32.2) pg MCHC (32.2-35.5) g/dl RDW Std Deviation (36.4-46.3) fL Plt Count (182-369) K/mm3 MPV (9.4-12.3) fl Neut % (Auto) (34.0-71.1) % Lymph % (Auto) (19.3-51.7) % [place] % (Auto) (4.7-12.5) % Eos % (Auto) (0.7-5.8) Baso % (Auto) (0.1-1.2) % Neut # (Auto) (1.56-6.13) K/mm3 Lymph # (Auto) (1.18-3.74) K/mm3 [place] # (Auto) (0.24-0.36) K/mm3 Eos # (Auto) (0.04-0.36) K/mm3 Baso # (Auto) (0.01-0.08) K/mm3 D-Dimer, Quantitative (0.19-0.50) mg/L Sodium 133 L (136-145) mEq/L Potassium 4.1 (3.5-5.1) mEq/L Chloride 94 L (98-107) mEq/L Carbon Dioxide 30 (21-32) mEq/L Anion Gap 13.1 (5-15) BUN 11 (7-18) mg/dL Creatinine 0.8 (0.55-1.02) mg/dL Est Cr Clr Drug Dosing TNP Estimated GFR (MDRD) > 60 (>60) mL/min BUN/Creatinine Ratio 13.8 L (14-18) Glucose 102 H (70-99) mg/dL Lactic Acid (0.4-2.0) mmol/L Calcium 8.9 (8.5-10.1) mg/dL Total Bilirubin 0.4 (0.2-1.0) mg/dL AST 33 (15-37) U/L ALT 43 (14-59) U/L Alkaline Phosphatase 105 (46-116) U/L Troponin I < 0.017 (0.00-0.056) ng/mL C-Reactive Protein 26.0 H* (<1.0) mg/dL NT-Pro-B Natriuret Pep 1178 H (0-125) pg/mL Total Protein 8.6 H (6.4-8.2) g/dl Albumin 3.7 (3.4-5.0) g/dl Globulin 4.9 gm/dL Albumin/Globulin Ratio 0.8 L (1-2) Mycoplasma pneumon IgM Negative (NEGATIVE) SARS-CoV-2 RNA (EZEQUIEL) (NEGATIVE) 03/26/21 03/26/21 Range/Units 14:32 16:36 WBC (3.98-10.04) K/mm3 RBC (3.98-5.22) M/mm3 Hgb (11.2-15.7) gm/dl Hct (34.1-44.9) % MCV (79.4-94.8) fl MCH (25.6-32.2) pg MCHC (32.2-35.5) g/dl RDW Std Deviation (36.4-46.3) fL Plt Count (182-369) K/mm3 MPV (9.4-12.3) fl Neut % (Auto) (34.0-71.1) % Lymph % (Auto) (19.3-51.7) % [place] % (Auto) (4.7-12.5) % Eos % (Auto) (0.7-5.8) Baso % (Auto) (0.1-1.2) % Neut # (Auto) (1.56-6.13) K/mm3 Lymph # (Auto) (1.18-3.74) K/mm3 [place] # (Auto) (0.24-0.36) K/mm3 Eos # (Auto) (0.04-0.36) K/mm3 Baso # (Auto) (0.01-0.08) K/mm3 D-Dimer, Quantitative (0.19-0.50) mg/L Sodium (136-145) mEq/L Potassium (3.5-5.1) mEq/L Chloride (98-107) mEq/L Carbon Dioxide (21-32) mEq/L Anion Gap (5-15) BUN (7-18) mg/dL Creatinine (0.55-1.02) mg/dL Est Cr Clr Drug Dosing Estimated GFR (MDRD) (>60) mL/min BUN/Creatinine Ratio (14-18) Glucose (70-99) mg/dL Lactic Acid 1.0 (0.4-2.0) mmol/L Calcium (8.5-10.1) mg/dL Total Bilirubin (0.2-1.0) mg/dL AST (15-37) U/L ALT (14-59) U/L Alkaline Phosphatase (46-116) U/L Troponin I (0.00-0.056) ng/mL C-Reactive Protein (<1.0) mg/dL NT-Pro-B Natriuret Pep (0-125) pg/mL Total Protein (6.4-8.2) g/dl Albumin (3.4-5.0) g/dl Globulin gm/dL Albumin/Globulin Ratio (1-2) Mycoplasma pneumon IgM (NEGATIVE) SARS-CoV-2 RNA (EZEQUIEL) Negative (NEGATIVE) Meds: Medications Discontinued Medications Generic Name Dose Route Start Last Admin Trade Name Freq PRN Reason Stop Dose Admin Albuterol/Ipratropium 3 ml 03/26/21 13:45 03/26/21 14:03 Albuterol/Ipratropium 3.0-0.5 Mg/3 Ml Neb Soln NEB 03/26/21 13:46 3 ml ONETIME ONE Administration Sodium Chloride 100 mls @ 60 mls/hr 03/26/21 16:30 03/26/21 17:02 Normal Saline IV 60 mls/hr ASDIRECTED ARMANDO Administration Ceftriaxone Sodium 2 gm/ 100 mls @ 200 mls/hr 03/26/21 16:44 03/26/21 17:18 Sodium Chloride IV 03/26/21 17:13 200 mls/hr ONETIME ONE Administration Iopamidol 100 ml 03/26/21 16:29 03/26/21 17:01 Iopamidol 755 Mg/Ml 100 Ml Bottle IVPUSH 03/26/21 16:30 100 ml ONETIME ONE Administration Methylprednisolone Sodium Succinate 125 mg 03/26/21 13:44 03/26/21 14:30 Methylprednisolone Sodium Succinate 125 Mg/2 Ml Sdv IVPUSH 03/26/21 13:45 125 mg ONETIME ONE Administration Sodium Chloride 10 ml 03/26/21 12:56 03/26/21 13:26 Sodium Chloride 0.9% 10 Ml Syringe FLUSH 10 ml ASDIRECTED PRN Administration Keep Vein Open Sodium Chloride 10 ml 03/26/21 16:29 03/26/21 17:02 Sodium Chloride 0.9% 10 Ml Syringe FLUSH 03/26/21 16:30 10 ml ONETIME ONE Administration - Re-Assessments/Exams Free Text/Narrative Re-Assessment/Exam: Patient is a 60-year-old female presenting to the emergency department with complaints of Covid symptoms. Since Wednesday, she has been experiencing cough, fever, increased shortness of breath. On arrival to ER, she was 75% on room air after ambulating back to the room, however she rebounded quite quickly. She is currently on 1 L of oxygen by nasal cannula saturating in the mid 90s. Patient reports that she has had a direct exposure to Covid. 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 She did receive the Pfizer vaccination in September and October of this year. On exam, lung sounds are tight with occasional expiratory wheeze. I have ordered blood work, chest x-ray, EKG, Covid test. 03/26/21 1420 Patient's initial Covid test came back negative. Hematology significant for WBC very minimally elevated at 10.05, D-dimer 1.03, sodium 133, chloride 94, CRP 26.0, proBNP 1178. Chest x-ray shows "area of increased density as noted above. Please exclude any symptoms of Covid pneumonia". Patient's clinical presentation chest x-ray, and hematology results strongly point to Covid and given her direct exposure, this only further supports the diagnosis. I will repeat PCR Covid test. In the meantime, I have ordered Solu-Medrol 125 mg IV and DuoNeb as there is some indication that patient likely suffers from underlying COPD. Patient has agreed to have repeat Covid testing completed. 03/26/21 17:25 Patient's repeat Covid is also negative. I still the strong suspicion that she is suffering for Covid pneumonia, however I am going to work her up for possible bacterial pneumonia. I have added blood cultures and lactic acid. Given her elevation in D-dimer, will complete a CT angiogram of the chest. She did have some relief of symptoms with the Solu-Medrol and DuoNeb breathing treatment. Once lactic acid and blood cultures are collected, I will give her Rocephin 2 g IV. Also ordered testing for mycoplasma pneumonia. Covid test will be sent off to the state for confirmatory testing. 03/26/21 18:41 Mycoplasma pneumonia is negative. Lactic acid is normal at 1.0. CT angiogram the chest impression as follows: 1. No findings of pulmonary embolism. 2. Mild adenopathy is seen within the mediastinum which is felt to be due to parenchymal process. 3. Scattered parenchymal densities in both sides of the chest very suspicious for Covid pneumonia. Consider serum test to further evaluate if not already performed. Clinically, patient has Covid pneumonia. She is currently on 1 L of oxygen by nasal cannula saturating in the mid 90s. Feels much better after the DuoNeb breathing treatment. Unfortunate there are no beds available for admission in our facility. Discussed admission options with patient which would include contacting the [facility] transfer [facility] looking for placement at another facility, however we cannot predict where this may be. It would likely be quite a distance away. She has decided she would rather go home with home oxygen. Patient will be treated for Covid pneumonia with dexamethasone, DuoNeb breathing treatments, and home oxygen. She will also be started on azithromycin to cover for any possible underlying bacterial pneumonia. We will send her with a pulse oximeter to monitor her oxygen saturations. Advised her that if she is getting worse and requiring more than 3 or 4 L of oxygen to keep her saturations above 92%, she should return to the emergency department. She is in agreement with this plan. Discharge instructions as documented. Departure - Departure Time of Disposition: 19:18 Disposition: Home, Self-Care 01 Condition: Good Clinical Impression: Clinical diagnosis of COVID-19 - Discharge Information *PRESCRIPTION DRUG MONITORING PROGRAM REVIEWED*: No *COPY OF PRESCRIPTION DRUG MONITORING REPORT IN PATIENT SOHAN: No Prescriptions: Azithromycin 250 mg PO ASDIRECTED 5 Days #6 tablet dexAMETHasone [Decadron] 6 mg PO DAILY 5 Days #5 tablet Albuterol/Ipratropium [DuoNeb 3.0-0.5 MG/3 ML] 3 ml .XX Q4H PRN #30 ml PRN Reason: Shortness Of Breath Instructions: COVID-19 Referrals: Nayely Lim MD [Primary Care Provider] - Forms: ED Department Discharge Additional Instructions: Take the azithromycin, dexamethasone, and DuoNeb breathing treatments as prescribed. Wear supplemental oxygen at 1 to 3 L as needed to keep oxygen saturations greater than 92% Monitor your oxygen saturations frequently. If you are requiring more than 4 L of oxygen to keep your saturations greater than 92%, or you experience any other new or worsening symptoms of concern you should return to the emergency department for reevaluation. Sepsis Event Note (ED) - Evaluation Sepsis Screening Result: Possible Sepsis Risk - Focused Exam Vital Signs: Vital Signs Temp Pulse Resp BP Pulse Ox Pulse Ox 03/26/21 13:45 92 L 03/26/21 12:34 99.1 F 106 H 28 H 164/98 H 75 L - My Orders Last 24 Hours: My Active Orders 03/26/21 12:31 CORONAVIRUS COVID-19 PCR PHL Routine 03/26/21 12:56 Peripheral IV Insertion Adult [OM.PC] Stat 03/26/21 13:43 Isolation [COMM] Routine 03/26/21 14:33 CORONAVIRUS COVID-19 PCR PHL Routine 03/26/21 16:14 Blood Culture x2 Reflex Set [OM.PC] Stat 03/26/21 16:36 BLOOD CULTURE [MREF] Stat 03/26/21 16:42 BLOOD CULTURE [MREF] Stat - Assessment/Plan Last 24 Hours: My Active Orders 03/26/21 12:31 CORONAVIRUS COVID-19 PCR PHL Routine 03/26/21 12:56 Peripheral IV Insertion Adult [OM.PC] Stat 03/26/21 13:43 Isolation [COMM] Routine 03/26/21 14:33 CORONAVIRUS COVID-19 PCR PHL Routine 03/26/21 16:14 Blood Culture x2 Reflex Set [OM.PC] Stat 03/26/21 16:36 BLOOD CULTURE [MREF] Stat 03/26/21 16:42 BLOOD CULTURE [MREF] Stat
[2021-03-26] MEDS ORDERED: Sodium Chloride 0.9% 10 ML Syringe FLUSH ONE (16:29)
[2021-03-26] MEDS ORDERED: Iopamidol 755 Mg/ML 100 ML Bottle IVPUSH ONE (16:29)
[2021-03-26] MEDS ORDERED: Sodium Chloride 0.9% 100 ML IV SCH (16:30)
[2021-03-26] MEDS ORDERED: cefTRIAXone 2 GM in Sodium Chloride 0.9% 100 ML IV ONE (16:44)
--- NOTE | 2021-03-26 17:35 | CT ---
CT chest Technique: Multiple axial sections through the chest were obtained. Intravenous contrast was utilized. Study has been performed as a pulmonary angiogram protocol. Comparison: Prior chest CT of 06/08/19. Findings: Pulmonary arteries are well opacified. No filling defects are seen to indicate discrete pulmonary embolism. Thoracic aorta shows no aneurysm. Mediastinum shows scattered lymph nodes which are likely due to the parenchymal process that is present. No pericardial thickening is seen. Small hiatal hernia is noted. Surgical clips are seen from prior cholecystectomy. Lung window setting shows scattered parenchymal densities within both sides of the chest very suspicious for COVID pneumonia, this is an interval change from prior CT study. Bone window settings were reviewed which show scattered disc space narrowing and spurring within the spine. No acute osseous abnormality is appreciated. Impression: 1. No findings of pulmonary embolism. 2. Mild adenopathy is seen within the mediastinum which is felt to be due to parenchymal process. 3. Scattered parenchymal densities within both sides of the chest very suspicious for COVID pneumonia. Consider serum test for further evaluation if not already performed. Diagnostic code #3
== END 2021-03-26 20:10 | disposition home or self-care (01) ==
LOC: JD.ED 11:17
DX: U07.1 COVID-19 (principal); E03.9 Hypothyroidism, unspecified; Z79.899 Other long term (current) drug therapy
CPT/HCPCS: 36415; 71045; 71275; 80053; 83605; 83880; 84484; 85025; 85379; 86140; 86738; 87040; 87635; 87804; 93005; 94640; 96365; 96375; 99285; J0696; J2930; Q9967; J7620-GY; U0002

== ENCOUNTER 2022-05-04 19:45 | Emergency (ER) | payer MEDICAID ==
[2022-05-04] MEDS ORDERED: Sodium Chloride 0.9% 1,000 ML IV SCH (21:15)
[2022-05-04] MEDS ORDERED: Iopamidol 612 MG/ML 100 ML Bottle IVPUSH ONE (21:32)
[2022-05-04] MEDS ORDERED: Azithromycin 250 MG Tab PO STA (23:00)
[2022-05-04] MEDS ORDERED: Amoxicillin 500 MG Cap PO STA (23:00)
== END 2022-05-05 | disposition home or self-care (01) ==
LOC: JD.ED 19:45
DX: U07.1 COVID-19 (principal); J12.82 Pneumonia due to coronavirus disease 2019; Z79.899 Other long term (current) drug therapy; Z90.49 Acquired absence of other specified parts of digestive tract; Z86.16 Personal history of COVID-19; Z90.710 Acquired absence of both cervix and uterus; Z87.891 Personal history of nicotine dependence
CPT/HCPCS: 71260; 96360; 99283; A9270; J7030; Q9967

== ENCOUNTER 2023-03-12 18:12 | Day surgery (SDC) | payer MEDICAID ==
[2023-03-12 19:09] LABS: EOSINOPHILS ABSOLUTE AUTO 0.1 K/mm3 (0.0-0.4); EOSINOPHILS PERCENT AUTO 1.2 % (0.0-6.0); HEMATOCRIT 33.1 % (37.0-47.0); HEMOGLOBIN 11.1 gm/dl (12.0-16.0); IMMATURE GRAN ABSOLUTE AUTO 0.01 K/mm3 (0.00-0.05); IMMATURE GRAN PERCENT AUTO 0.2 % (0.0-0.4); LYMPHOCYTES ABSOLUTE AUTO 1.5 K/mm3 (1.0-4.8); LYMPHOCYTES PERCENT AUTO 36.2 % (24.0-44.0); MEAN CORPUSCULAR HEMOGLOBIN 34.3 pg (28.0-32.0); MEAN CORPUSCULAR HGB CONC 33.5 g/dl (32.0-36.0); MEAN CORPUSCULAR VOLUME 102.2 fl (83.0-99.0); MEAN PLATELET VOLUME 8.8 fl (9.4-12.3); MONOCYTES ABSOLUTE AUTO 0.7 K/mm3 (0.0-0.8); MONOCYTES PERCENT AUTO 15.6 % (0.0-8.0); NEUTROPHILS ABSOLUTE AUTO 1.9 K/mm3 (1.8-7.7); NEUTROPHILS PERCENT AUTO 45.8 % (41.0-71.0); PLATELET COUNT,PLT 224 K/mm3 (150-400); RED BLOOD CELL COUNT 3.24 M/mm3 (4.10-5.30); WHITE BLOOD CELL COUNT,WBC 4.17 K/mm3 (3.9-11.3)
[2023-03-12] MEDS ORDERED: ceFAZolin 2 GM in Sodium Chloride 0.9% 100 ML IV ONE (19:17)
[2023-03-12] MEDS ORDERED: cefTRIAXone 2 GM in Sodium Chloride 0.9% 100 ML IV ONE (19:30)
[2023-03-12] MEDS ORDERED: ceFAZolin 2 GM in Sodium Chloride 0.9% 50 ML IV ONE (19:30)
[2023-03-12] MEDS ORDERED: Midazolam 1 MG/ML 2 ML SDV ONE (19:38)
[2023-03-12] MEDS ORDERED: fentaNYL 100 MCG/2 ML SDV ONE (19:39)
[2023-03-12] MEDS ORDERED: ceFAZolin 2 GM Vial ONE (19:43)
[2023-03-12] MEDS ORDERED: ePHEDrine 50 MG/ML SDV ONE (20:22)
== END 2023-03-13 08:15 | disposition home or self-care (01) ==
LOC: JD.ED 18:12 → UNDOADMOB 19:17 → JD.MS 19:17 → JD.SDS 19:48 → UNDOADMOB 19:49 → JD.MS 19:49 → JD.SDS 19:55
PROVIDERS: ATTEND Obstetrics & Gynecology
DX: N93.9 Abnormal uterine and vaginal bleeding, unspecified (principal); E03.9 Hypothyroidism, unspecified; F41.9 Anxiety disorder, unspecified; F32.A Depression, unspecified; Z86.16 Personal history of COVID-19; Z87.891 Personal history of nicotine dependence; Z90.49 Acquired absence of other specified parts of digestive tract; Z90.710 Acquired absence of both cervix and uterus; Z98.890 Other specified postprocedural states; Z79.890 Hormone replacement therapy; Z79.899 Other long term (current) drug therapy
CPT/HCPCS: 36415; 85025; 99284; J0690; J2250; J3010; J3490